=== PATIENT | male | born 1955 | race Caucasian/White ===

== ENCOUNTER 2016-06-09 10:30 | Emergency (ER) | payer MEDICARE ==
[2014-08-07 11:36] VITALS: BMI 28.9
[~2016-06-09 10:30] MED LIST: DILAUDID4 MG PO; NORCO 10/325 TA1 TA1 PO
[2016-06-09 11:01] LABS: BASOPHILS 0.3 % (0.0-2.0); EOSINOPHILS 1.3 % (0-7); HEMATOCRIT 44.8 % (42.0-54.0); IMMATURE GRANULOCYTES 0.4 % (0-5); LYMPHOCYTES 24.6 % (15-50); MCH 28.8 pg (26.0-34.0); MCHC 33.5 g/dL (31.0-37.0); MCV 86.2 fL (80.0-100.0); MEAN PLATELET VOLUME 9.1 fL (7.4-10.4); MONOCYTES 10.9 % (2-11); NEUTROPHILS 62.5 % (40-80); RDW 13.5 % (11.5-14.5); WBC 6.8 10x3/uL (4.8-10.8)
[2016-06-09 11:03] LABS: PLATELET COUNT 187 10x3/uL (130-400)
[2016-06-09 11:15] LABS: ALBUMIN 3.6 g/dL (3.4-5.0); ALKALINE PHOSPHATASE 104 U/L (46-116); ALT (SGPT) 173 U/L (10-68); BILIRUBIN - TOTAL 0.27 mg/dL (0.2-1.3); CALC OSMOLALITY 274 mosm/kg (275-300); CALCIUM 9.2 mg/dL (8.5-10.1); CARBON DIOXIDE 23.5 mmol/L (21.0-32.0); CHLORIDE - SERUM 103 mmol/L (98-107); CREATININE - SERUM 0.9 mg/dL (0.6-1.3); GLUCOSE 94 mg/dL (74-106); POTASSIUM - SERUM 4.3 mmol/L (3.5-5.1); PROTEIN - SERUM 7.7 g/dL (6.4-8.2); SODIUM 136 mmol/L (136-145); UREA NITROGEN 20 mg/dL (7-18); eGFR NON AFRICAN AMERICAN > 90 mL/min (90-120)
[2016-06-09 11:20] LABS: APPEARANCE CLEAR (CLEAR); BILIRUBIN NEGATIVE (NEGATIVE); COLOR YELLOW (YELLOW); GLUCOSE NEGATIVE (NEGATIVE); KETONE NEGATIVE (NEGATIVE); LEUKOCYTE ESTERASE NEGATIVE (NEGATIVE); NITRITE NEGATIVE (NEGATIVE); PROTEIN NEGATIVE (NEGATIVE); SPECIFIC GRAVITY 1.015 (1.005-1.020); UROBILINOGEN NORMAL (NORMAL)
== END 2016-06-09 14:15 | disposition home or self-care (01) ==
LOC: D.ER 10:30
PROVIDERS: Emergency Medicine
DX: R10.9 Unspecified abdominal pain (principal)

== ENCOUNTER 2016-06-25 13:28 | Emergency (ER) | payer MEDICARE ==
[2014-08-07 11:36] VITALS: BMI 28.9
== END 2016-06-25 15:34 | disposition left against medical advice (07) ==
LOC: D.ER 13:28
DX: M54.5 Low back pain (principal)

== ENCOUNTER 2016-07-09 18:57 | Emergency (ER) | payer MEDICARE ==
[2014-08-07 11:36] VITALS: BMI 28.9
[2016-07-09 19:55] LABS: ALBUMIN 3.6 g/dL (3.4-5.0); ANION GAP 15.6 mmol/L (8-16); BILIRUBIN - TOTAL 0.48 mg/dL (0.2-1.3); CALCIUM 8.6 mg/dL (8.5-10.1); CARBON DIOXIDE 22.1 mmol/L (21.0-32.0); CREATININE - SERUM 1.7 mg/dL (0.6-1.3); POTASSIUM - SERUM 3.7 mmol/L (3.5-5.1); PROTEIN - SERUM 7.2 g/dL (6.4-8.2)
[2016-07-09 20:07] LABS: BASOPHILS 0.3 % (0.0-2.0); EOSINOPHILS 0.9 % (0-7); HEMATOCRIT 40.7 % (42.0-54.0); HEMOGLOBIN 13.4 g/dL (13.5-17.5); IMMATURE GRANULOCYTES 0.7 % (0-5); LYMPHOCYTES 15.8 % (15-50); MCH 28.5 pg (26.0-34.0); MCHC 32.9 g/dL (31.0-37.0); MCV 86.6 fL (80.0-100.0); MEAN PLATELET VOLUME 10.8 fL (7.4-10.4); MONOCYTES 9.1 % (2-11); NEUTROPHILS 73.2 % (40-80); PLATELET COUNT 163 10x3/uL (130-400); RDW 13.6 % (11.5-14.5); WBC 7.7 10x3/uL (4.8-10.8)
== END 2016-07-09 21:01 | disposition home or self-care (01) ==
LOC: D.ER 18:57
PROVIDERS: Nurse Practitioner Acute Care
DX: R07.9 Chest pain, unspecified (principal); R60.0 Localized edema; I10 Essential (primary) hypertension; F41.9 Anxiety disorder, unspecified; F32.9 Major depressive disorder, single episode, unspecified

== ENCOUNTER → 2016-07-16 13:42 | Outpatient (CLI) | payer MEDICARE ==
[2014-08-07 11:36] VITALS: BMI 28.9
== END | disposition home or self-care (01) ==
LOC: D.MRI 13:42
DX: M54.5 Low back pain (principal)

== ENCOUNTER 2016-09-15 12:01 | Emergency (ER) | payer MEDICARE ==
[2014-08-07 11:36] VITALS: BMI 28.9
[2016-09-15 15:57] LABS: BASOPHILS 0.2 % (0-2); EOSINOPHILS 0.9 % (0-7); HEMATOCRIT 45.8 % (42.0-54.0); HEMOGLOBIN 15.3 g/dL (13.5-17.5); IMMATURE GRANULOCYTES 0.7 % (0-5); LYMPHOCYTES 20.5 % (15-50); MCH 29.8 pg (26.0-34.0); MCHC 33.4 g/dL (31.0-37.0); MCV 89.3 fL (80.0-100.0); MEAN PLATELET VOLUME 9.5 fL (7.4-10.4); MONOCYTES 7.9 % (2-11); NEUTROPHILS 69.8 % (40-80); PLATELET COUNT 183 10x3/uL (130-400); RBC 5.13 10x6/uL (4.20-6.10); RDW 12.9 % (11.5-14.5); WBC 5.8 10x3/uL (4.8-10.8)
[2016-09-15 17:13] LABS: ALBUMIN 3.5 g/dL (3.4-5.0); ANION GAP 16.4 mmol/L (8-16); BILIRUBIN - TOTAL 0.3 mg/dL (0.2-1.3); CALCIUM 9.1 mg/dL (8.5-10.1); CARBON DIOXIDE 23.1 mmol/L (21.0-32.0); CREATININE - SERUM 1.3 mg/dL (0.6-1.3); POTASSIUM - SERUM 4.5 mmol/L (3.5-5.1); PROTEIN - SERUM 7.3 g/dL (6.4-8.2)
[2016-09-15 18:26] LABS: AMYLASE - SERUM 62 U/L (25-115); LIPASE 154 U/L (73-393)
== END 2016-09-15 19:14 | disposition home or self-care (01) ==
LOC: D.ER 12:01
PROVIDERS: Physician Assistant
DX: R55 Syncope and collapse (principal); R42 Dizziness and giddiness; R51 Headache; N28.9 Disorder of kidney and ureter, unspecified; I95.1 Orthostatic hypotension; F17.200 Nicotine dependence, unspecified, uncomplicated

== ENCOUNTER 2017-01-23 10:13 | Emergency (ER) | payer MEDICARE ==
[2014-08-07 11:36] VITALS: BMI 28.9
== END 2017-01-23 12:52 | disposition home or self-care (01) ==
LOC: D.ER 10:13
DX: S50.12XA Contusion of left forearm, initial encounter (principal); S80.01XA Contusion of right knee, initial encounter; W19.XXXA Unspecified fall, initial encounter; Y93.89 Activity, other specified; Y92.019 Unspecified place in single-family (private) house as the place of occurrence of the external cause; L03.90 Cellulitis, unspecified; F17.200 Nicotine dependence, unspecified, uncomplicated

== ENCOUNTER 2017-01-26 14:04 | Inpatient (IN) | payer MEDICARE ==
[~2017-01-26] VITALS: Ht 172.7 cm; Wt 91.1 kg
[2017-01-26 14:39] VITALS: BP 132/79; Ht 172.7 cm; Wt 91.1 kg
[2017-01-26 14:40] VITALS: BP 132/79
[2017-01-26 16:21] LABS: BASOPHILS 0.2 % (0-2); EOSINOPHILS 0.8 % (0-7); HEMATOCRIT 37.7 % (42.0-54.0); HEMOGLOBIN 12.5 g/dL (13.5-17.5); IMMATURE GRANULOCYTES 0.2 % (0-5); LYMPHOCYTES 12.3 % (15-50); MCH 29.6 pg (26.0-34.0); MCHC 33.2 g/dL (31.0-37.0); MCV 89.3 fL (80.0-100.0); MEAN PLATELET VOLUME 9.6 fL (7.4-10.4); MONOCYTES 9.7 % (2-11); NEUTROPHILS 76.8 % (40-80); PLATELET COUNT 156 10x3/uL (130-400); RBC 4.22 10x6/uL (4.20-6.10); RDW 13.2 % (11.5-14.5); WBC 6.4 10x3/uL (4.8-10.8)
[2017-01-26 19:00] VITALS: BP 118/65
--- NOTE | 2017-01-26 19:50 | NUR ---
ASSISTED PATIENT TO THE RESTROOM AND BACK TO BED. BED IN LOWEST POSITION, CALL LIGHT WITHIN REACH, AND BED ALARM ON. ENCOURAGED THE PATIENT TO CALL IF HE HAS FURTHER NEEDS.
[2017-01-27] VITALS: BP 122/65
[2017-01-27 04:00] VITALS: BP 121/78
[2017-01-27 06:06] LABS: BASOPHILS 0.2 % (0-2); EOSINOPHILS 2.9 % (0-7); HEMATOCRIT 36.1 % (42.0-54.0); HEMOGLOBIN 11.9 g/dL (13.5-17.5); IMMATURE GRANULOCYTES 0.2 % (0-5); LYMPHOCYTES 19.2 % (15-50); MCH 29.3 pg (26.0-34.0); MCV 88.9 fL (80.0-100.0); MEAN PLATELET VOLUME 10.4 fL (7.4-10.4); MONOCYTES 13.1 % (2-11); NEUTROPHILS 64.4 % (40-80); RBC 4.06 10x6/uL (4.20-6.10); RDW 13.2 % (11.5-14.5); WBC 5.4 10x3/uL (4.8-10.8)
[2017-01-27 06:16] LABS: PLATELET COUNT 206 10x3/uL (130-400)
[2017-01-27 06:30] LABS: ALBUMIN 2.5 g/dL (3.4-5.0); ALKALINE PHOSPHATASE 83 U/L (46-116); ALT (SGPT) 139 U/L (10-68); BILIRUBIN - TOTAL 0.51 mg/dL (0.2-1.3); CALC OSMOLALITY 276 mosm/kg (275-300); CALCIUM 8.2 mg/dL (8.5-10.1); CARBON DIOXIDE 24.8 mmol/L (21.0-32.0); CHLORIDE - SERUM 105 mmol/L (98-107); CREATININE - SERUM 0.6 mg/dL (0.6-1.3); GLUCOSE 90 mg/dL (74-106); POTASSIUM - SERUM 3.2 mmol/L (3.5-5.1); PROTEIN - SERUM 6.3 g/dL (6.4-8.2); SODIUM 139 mmol/L (136-145); UREA NITROGEN 11 mg/dL (7-18); eGFR NON AFRICAN AMERICAN > 90 mL/min (90-120)
--- NOTE | 2017-01-27 08:10 | NUR ---
Patient Name: JAYNA JI Admission Status: Elective Accout number: [id number] Admission Date: 01-26-2017 : 1955 Admission Diagnosis: Attending: MATIAS MORALES Current LOS: 1 Anticipated DC Date: 01-29-2017 Planned Disposition: Home Primary Insurance: MEDICARE A & B Discharge Planning Comments: CM MET WITH PATIENT AND SPOUSE (JOSE) REGARDING D/C NEEDS AND PLANS. PATIENT STATED JOSE WOULD DRIVE HIM HOME AT DISCHARGE. THERE ARE 3 STEPS W/RAILS TO ENTER HOME AND NO STAIRS INSIDE. PATIENT AND DO NOT LIVE TOGETHER - SHE LIVES ACROSS THE [address] BUT WILL STAY WITH HIM IF NEEDED. PATIENT STATED HE IS INDEPENDENT WITH HIS CARE AND HAS A WALKER, WHEELCHAIR, BS COMMODE AND CANE AT HOME. PATIENTS PCP IS DR. AUGUSTIN AND USES [facility]. PATIENT IS REFUSING HOME HEALTH AT THIS TIME. CM WILL CONTINUE TO FOLLOW PATIENT WITH D/C NEEDS AND PLANS. PCP DR. AUGUSTIN [facility]- [phone] JOSE () [phone] Clinical Transplant Coordinator: Keya Hauser Is the patient Alert and Oriented? Yes 0 * How many steps to enter\exit or inside your home? 3 W/RAILS 0 * PCP DR. AUGUSTIN 0 * Pharmacy [facility] 0 * Preadmission Environment Home Alone 0 * ADLs Independent 0 * Equipment Bedside Commode Cane Walker Wheelchair 0 * List name and contact numbers for known caregivers / representatives who currently or will assist patient after discharge: JOSE (SPOUSE) [phone] 0 * Community resources currently utilized None 0 * Additional services required to return to the preadmission environment? Yes 0 * Can the patient safely return to the preadmission environment? Yes 0 * Has this patient been hospitalized within the prior 30 days at any hospital? No 0 Grand Total: 0
[2017-01-27 09:13] VITALS: BP 127/68
[2017-01-27 10:46] VITALS: BP 114/80
[2017-01-27 16:37] VITALS: BP 115/65
--- NOTE | 2017-01-27 19:40 | NUR ---
ASSISTED THE PATIENT TO AND FROM THE RESTROOM. PATIENT DENIES NEEDS AT THIS TIME. BED IN LOWEST POSITION, CALL LIGHT WITHIN REACH, AND BED ALARM ON. ENCOURAGED THE PATIENT TO CALL IF HE HAS OTHER NEEDS.
[2017-01-27 20:00] VITALS: BP 100/48
[2017-01-28] VITALS: BP 117/70
[2017-01-28 04:00] VITALS: BP 122/56
[2017-01-28 06:00] LABS: BASOPHILS 0.3 % (0-2); EOSINOPHILS 3.4 % (0-7); HEMATOCRIT 36.2 % (42.0-54.0); HEMOGLOBIN 11.7 g/dL (13.5-17.5); IMMATURE GRANULOCYTES 0.3 % (0-5); LYMPHOCYTES 22.8 % (15-50); MCH 28.8 pg (26.0-34.0); MCHC 32.3 g/dL (31.0-37.0); MCV 89.2 fL (80.0-100.0); MONOCYTES 13.1 % (2-11); NEUTROPHILS 60.1 % (40-80); PLATELET COUNT 196 10x3/uL (130-400); RBC 4.06 10x6/uL (4.20-6.10); RDW 13.4 % (11.5-14.5)
[2017-01-28 06:05] LABS: WBC 3.8 10x3/uL (4.8-10.8)
[2017-01-28 06:25] LABS: ALBUMIN 2.6 g/dL (3.4-5.0); ALKALINE PHOSPHATASE 87 U/L (46-116); ALT (SGPT) 146 U/L (10-68); BILIRUBIN - TOTAL 0.36 mg/dL (0.2-1.3); CALC OSMOLALITY 278 mosm/kg (275-300); CALCIUM 8.2 mg/dL (8.5-10.1); CARBON DIOXIDE 24.6 mmol/L (21.0-32.0); CHLORIDE - SERUM 108 mmol/L (98-107); CREATININE - SERUM 0.7 mg/dL (0.6-1.3); GLUCOSE 116 mg/dL (74-106); POTASSIUM - SERUM 3.6 mmol/L (3.5-5.1); PROTEIN - SERUM 6.3 g/dL (6.4-8.2); SODIUM 140 mmol/L (136-145); UREA NITROGEN 10 mg/dL (7-18); eGFR NON AFRICAN AMERICAN > 90 mL/min (90-120)
--- NOTE | 2017-01-28 08:00 | NUR ---
ASSESSMENT COMPLETE. IV TO L UPPER ARM. NS INFUSING AT 70 CC/HR VIA PUMP. VIOLIN TEACHER DILAUDID 0.2-10-4 IN USE FOR PAIN CONTROL. NPO FOR SURGERY. DENIES ANY NEEDS AT THIS TIME.
[2017-01-28 08:09] VITALS: BP 124/68
--- NOTE | 2017-01-28 09:00 | NUR ---
OFF FLOOR TO OR VIA BED. FAMILY TO WAITING ROOM.
--- NOTE | 2017-01-28 10:16 | NUR ---
0958: UNABLE TO REACH FAMILY, EXT [phone]
[2017-01-28 12:25] VITALS: BP 127/60
--- NOTE | 2017-01-28 12:25 | NUR ---
RECEIVED TO ROOM FROM RECOVERY ROOM VIA BED. STERI STRIPS INTACT TO ANTERIOR MIDLINE NECK INCISION. SMALL AMOUNT OF BLOODY DRAINAGE NOTED TO STERI STRIPS. O2 3L NC IN USE. VSS. FAMILY AT BEDSIDE.
--- NOTE | 2017-01-28 15:00 | NUR ---
SMALL AMOUNT OF BLOODY DRAINAGE NOTED FROM MIDDLE OF INCISION.
--- NOTE | 2017-01-28 16:00 | NUR ---
BRUISING NOTED TO R HIP AND R EYE.
--- NOTE | 2017-01-28 18:10 | NUR ---
CONTINUES TO HAVE SMALL AMOUNT OF OOZING FROM MIDDLE OF INCISION. AREA AROUND INCISION CLEANED WITH SALINE SOAKED 4X4'S. SOFT COLLAR IN USE.
[2017-01-28 20:00] VITALS: BP 123/68
[2017-01-29] VITALS: BP 132/65
[2017-01-29 04:00] VITALS: BP 149/71
--- NOTE | 2017-01-29 04:04 | NUR ---
EYES CLOSED RESPIRATIONS WITH EASE AND UNLABORED.
[2017-01-29 04:59] LABS: BASOPHILS 0 % (0-2); EOSINOPHILS 0 % (0-7); HEMATOCRIT 35.2 % (42.0-54.0); HEMOGLOBIN 11.6 g/dL (13.5-17.5); IMMATURE GRANULOCYTES 0.1 % (0-5); LYMPHOCYTES 5.5 % (15-50); MCH 29.1 pg (26.0-34.0); MCV 88.4 fL (80.0-100.0); MEAN PLATELET VOLUME 9.9 fL (7.4-10.4); MONOCYTES 6.6 % (2-11); NEUTROPHILS 87.8 % (40-80); PLATELET COUNT 208 10x3/uL (130-400); RBC 3.98 10x6/uL (4.20-6.10); RDW 13.1 % (11.5-14.5)
[2017-01-29 05:10] LABS: WBC 7.4 10x3/uL (4.8-10.8)
[2017-01-29 05:21] LABS: ALBUMIN 2.6 g/dL (3.4-5.0); ALKALINE PHOSPHATASE 89 U/L (46-116); ALT (SGPT) 132 U/L (10-68); BILIRUBIN - TOTAL 0.25 mg/dL (0.2-1.3); CALC OSMOLALITY 273 mosm/kg (275-300); CALCIUM 8.2 mg/dL (8.5-10.1); CARBON DIOXIDE 22.3 mmol/L (21.0-32.0); CHLORIDE - SERUM 104 mmol/L (98-107); CREATININE - SERUM 0.8 mg/dL (0.6-1.3); GLUCOSE 152 mg/dL (74-106); POTASSIUM - SERUM 3.8 mmol/L (3.5-5.1); PROTEIN - SERUM 6.6 g/dL (6.4-8.2); SODIUM 136 mmol/L (136-145); UREA NITROGEN 11 mg/dL (7-18); eGFR NON AFRICAN AMERICAN > 90 mL/min (90-120)
[2017-01-29 08:02] VITALS: BP 129/73
--- NOTE | 2017-01-29 08:10 | NUR ---
ASSESSMENT COMPLETE. IV TO L FA PATENT. SEISMOGRAPH OPERATOR DILAUDID 0.2-10-4 IN USE FOR PAIN CONTROL. BED ALARM IN USE. SOFT COLLAR IN USE. ANTERIOR NECK INCISION WITH STERI STRIPS INTACT. BRUISING NOTED TO R EYE AND R HIP. O2 2L NC IN USE. DENIES ANY NEEDS AT THIS TIME.
[2017-01-29 12:21] VITALS: BP 128/65
--- NOTE | 2017-01-29 12:25 | NUR ---
COMPLAINING OF NAUSEA. ZOFRAN GIVEN SLOW IVP.
--- NOTE | 2017-01-29 15:00 | NUR ---
VISITING WITH FAMILY. DENIES ANY NEEDS AT THIS TIME.
[2017-01-29 16:14] VITALS: BP 130/76
--- NOTE | 2017-01-29 16:43 | NUR ---
Rehab Note- Acute Rehab Prescreen order received. Visited with the patient and his . They are interested in [facility] acute rehab. Will plan on acute rehab stay when medically stable and ready for discharge from the acute hospital. Spoke with KRISTEN Laura. Will continue to follow at this time. Thank you for this referral! Denisa Rangel RN Clinical Liaison, [facility] Rehab
--- NOTE | 2017-01-29 17:54 | NUR ---
VISITING WITH FAMILY. DENIES ANY NEEDS AT PRESENT.
--- NOTE | 2017-01-29 18:12 | NUR ---
OIL AND GAS FIELD TECHNICIAN DC'D. JORDON GIVEN FOR COMPLAINT OF PAIN.
--- NOTE | 2017-01-29 19:15 | NUR ---
OT NOTE : PT COMPLETED BED MOB WITH CGA. PT COMPLETED ADL MOB. WITH CGA. PT COMPLETED TOILETING TASK AND HYGIENE TASKS WITH SBA/CGA. THANK YOU, RADHA CALDERON/Charlene
[2017-01-29 20:00] VITALS: BP 134/75
--- NOTE | 2017-01-29 23:36 | NUR ---
194)REC'D.IN BED INCSION RIGHT LATERAL SIDE OF NECK WITH STERI STRIPS DRY AND INTACT. NO REDNESS OR DRAINAGE NOTED.COLLAR OFF AT PRESENT PER PT. REQUEST.SCD'S INTACT. WILL CONTINUE TO MONITOR FOR ANY CHGES. IN NEUROVASCULAR STAUUS AND FOLLOW CURRENT PLAN OF CARE.
--- NOTE | 2017-01-29 23:54 | NUR ---
PATIENT IS LAYING ON HIS RIGHT SIDE, RESTING QUIETLY WITH EYES CLOSED. NO SIGNS OF DISTRESS NOTED. BED IN LOWEST POSITION, CALL LIGHT IN REACH. BED RAILS UP X'S 2.
[2017-01-30] VITALS: BP 152/83
[2017-01-30 04:00] VITALS: BP 150/80
--- NOTE | 2017-01-30 07:50 | NUR ---
PT AOX4 RESP EVEN AND NONLABORED RESP EVEN AND NONLABORED PT DENIES NEEDS AT THIS TIME SRX2 BED AT LOWEST SETTING CALL LIGHT WITHIN REACH WILL CONTINUE TO MONITOR
[2017-01-30 07:58] VITALS: BP 130/79
[2017-01-30] MEDS ORDERED: IPRAT-ALBUT 0.5-3 ML UPD (10:15)
[2017-01-30] MEDS ORDERED: ACETAMINOPHEN325 MG PO (10:15)
[2017-01-30] MEDS ORDERED: ROBAXIN-750750 MG PO (10:15)
[2017-01-30] MEDS ORDERED: Morphine Sulfate IV (10:16)
[2017-01-30] MEDS ORDERED: NALOXONE HC0.4 MG/M2 IV (10:16)
[2017-01-30] MEDS ORDERED: HYDROCODON-ACE1 EAC7 PO (10:16)
[2017-01-30] MEDS ORDERED: PROTONIX I40 MG/VIAL IV (10:16)
[2017-01-30] MEDS ORDERED: DEXAMETHASONE4 MG/ML IV (10:16)
--- NOTE | 2017-01-30 11:14 | NUR ---
CM REASSESSMENT NOTE: PATIENT IS DISCHARGING TO IP REHAB TODAY. FAMILY AWARE OF DISCHARGE
[2017-01-30 16:11] LABS: BASOPHILS 0.1 % (0-2); EOSINOPHILS 0.4 % (0-7); HEMATOCRIT 35.5 % (42.0-54.0); HEMOGLOBIN 11.5 g/dL (13.5-17.5); IMMATURE GRANULOCYTES 0.4 % (0-5); LYMPHOCYTES 19.8 % (15-50); MCHC 32.4 g/dL (31.0-37.0); MCV 89.4 fL (80.0-100.0); MEAN PLATELET VOLUME 9.2 fL (7.4-10.4); NEUTROPHILS 68.3 % (40-80); PLATELET COUNT 204 10x3/uL (130-400); RBC 3.97 10x6/uL (4.20-6.10); RDW 13.4 % (11.5-14.5); WBC 6.7 10x3/uL (4.8-10.8)
[2017-01-30] MEDS ORDERED: DECADRON4 MG PO (16:30)
[2017-01-30 16:32] LABS: ALBUMIN 2.8 g/dL (3.4-5.0); ALKALINE PHOSPHATASE 106 U/L (46-116); ALT (SGPT) 126 U/L (10-68); BILIRUBIN - TOTAL 0.24 mg/dL (0.2-1.3); CALC OSMOLALITY 278 mosm/kg (275-300); CALCIUM 8.3 mg/dL (8.5-10.1); CARBON DIOXIDE 25.2 mmol/L (21.0-32.0); CHLORIDE - SERUM 105 mmol/L (98-107); CREATININE - SERUM 0.8 mg/dL (0.6-1.3); GLUCOSE 115 mg/dL (74-106); POTASSIUM - SERUM 3.6 mmol/L (3.5-5.1); PROTEIN - SERUM 6.2 g/dL (6.4-8.2); SODIUM 138 mmol/L (136-145); eGFR NON AFRICAN AMERICAN > 90 mL/min (90-120)
[2017-01-30 16:33] LABS: UREA NITROGEN 17 mg/dL (7-18)
== END 2017-01-30 17:51 | DRG 30 ==
LOC: D.MS 14:04
PROVIDERS: Neurological Surgery; ADMIT Family Medicine Adult Medicine
PROC: 0RB30ZZ Excision of Cervical Vertebral Disc, Open Approach (ICD-10-PCS; 2017-01-28)
PROC: 0RG10Z0 (ICD-10-PCS; principal; 2017-01-28 09:30)
DX: S14.107A Unspecified injury at C7 level of cervical spinal cord, initial encounter (principal); M48.06 Spinal stenosis, lumbar region; X58.XXXA Exposure to other specified factors, initial encounter; R00.0 Tachycardia, unspecified

== ENCOUNTER 2017-01-30 14:02 | Inpatient (IN) | payer MEDICARE ==
[~2017-01-30] VITALS: Ht 172.7 cm; Wt 86.2 kg
[~2017-01-30 14:02] MED LIST changes: +ACETAMINOPHEN325 MG PO; +DEXAMETHASONE4 MG/ML IV; +HYDROCODON-ACE1 EAC7 PO; +IPRAT-ALBUT 0.5-3 ML UPD; +Morphine Sulfate IV; +NALOXONE HC0.4 MG/M2 IV; +PROTONIX I40 MG/VIAL IV; +ROBAXIN-750750 MG PO
[2017-01-30] MEDS ORDERED: DECADRON4 MG PO (16:30)
--- NOTE | 2017-01-30 19:20 | NUR ---
PATIENT IN BED, AWAKE, WATCHING TV. DENIES NEEDS.
--- NOTE | 2017-01-30 21:40 | NUR ---
GAVE PATIENT SCHEDULED PO MEDS. ALSO GAVE HIM NORCO 5/325 X2 TABS PO FOR PAIN LEVEL OF 9/10 IN BACK AND POSTERIOR NECK.
[2017-01-30 21:43] VITALS: BP 143/69
--- NOTE | 2017-01-30 22:40 | NUR ---
REPORTS PAIN LEVEL STILL 4/10, BUT NOW HAVING SPASMS IN BILAT LEGS. GAVE HIM ROBAXIN 750MG PO AND CONTINUING ADMISSION ASSESSMENT AND HISTORY.
--- NOTE | 2017-01-30 23:20 | NUR ---
ADMISSION HISTORY AND ASSESSMENT COMPLETE. PATIENT SIGNED ADMISSION DOCUMENTS. DENIES CURRENT NEEDS.
--- NOTE | 2017-01-31 00:05 | NUR ---
RESTING QUIETLY IN BED, EYES CLOSED. EMPTIED 350ML FROM BEDSIDE URINAL.
--- NOTE | 2017-01-31 02:30 | NUR ---
REMAINS IN BED, RESTING ON LEFT SIDE. EMPTIED 250ML FROM BEDSIDE URINAL.
--- NOTE | 2017-01-31 04:40 | NUR ---
RESTING QUIETLY, EYES CLOSED. EMPTIED 650ML FROM BEDSIDE URINAL.
--- NOTE | 2017-01-31 05:40 | NUR ---
CURRENTLY WORKING WITH P/T. AT 0530 GAVE PATIENT SCHEDULED MEDS ALONG WITH NORCO 5/325 X2 TABS PO FOR PAIN LEVEL OF 6/10 IN LEGS, BACK AND NECK.
[2017-01-31 06:39] LABS: BASOPHILS 0 % (0-2); EOSINOPHILS 0 % (0-7); HEMATOCRIT 39.7 % (42.0-54.0); IMMATURE GRANULOCYTES 0.5 % (0-5); LYMPHOCYTES 9.8 % (15-50); MCH 29.1 pg (26.0-34.0); MCHC 32.7 g/dL (31.0-37.0); MCV 88.8 fL (80.0-100.0); MEAN PLATELET VOLUME 9.3 fL (7.4-10.4); MONOCYTES 5.4 % (2-11); NEUTROPHILS 84.3 % (40-80); PLATELET COUNT 238 10x3/uL (130-400); RBC 4.47 10x6/uL (4.20-6.10); RDW 13.3 % (11.5-14.5); WBC 6.5 10x3/uL (4.8-10.8)
[2017-01-31 06:53] LABS: CALC OSMOLALITY 269 mosm/kg (275-300); CALCIUM 8.4 mg/dL (8.5-10.1); CARBON DIOXIDE 24.8 mmol/L (21.0-32.0); CHLORIDE - SERUM 101 mmol/L (98-107); CREATININE - SERUM 0.7 mg/dL (0.6-1.3); GLUCOSE 111 mg/dL (74-106); SODIUM 134 mmol/L (136-145); UREA NITROGEN 15 mg/dL (7-18); eGFR NON AFRICAN AMERICAN > 90 mL/min (90-120)
[2017-01-31 06:56] LABS: POTASSIUM - SERUM 4.7 mmol/L (3.5-5.1)
[2017-01-31 08:42] VITALS: BP 148/78
--- NOTE | 2017-01-31 10:00 | NUR ---
PT REQ AND REC'D PRN ROBAXIN AND PAIN MED THIS AM. PT RESTING IN BED. WCTM.
[2017-01-31 13:52] VITALS: Ht 172.7 cm; Wt 86.2 kg
--- NOTE | 2017-01-31 15:50 | NUR ---
PT RESTING IN BED WATCHING TV, DENIES NEEDS. WCTM.
--- NOTE | 2017-01-31 19:00 | NUR ---
IN BED, AWAKE. DENIES NEEDS.
[2017-01-31 21:35] VITALS: BP 140/81
--- NOTE | 2017-01-31 21:35 | NUR ---
ASSESSMENT AND HS MEDS COMPLETE. GAVE PATIENT NORCO 5/325 X2 TABS PO FOR PAIN LEVEL OF 7/10 IN BACK, LEGS AND NECK. ALSO GAVE HIM ROBAXIN 750MG PO FOR SPASMS IN BILAT LEGS.
--- NOTE | 2017-01-31 22:35 | NUR ---
RESTING IN BED ON LEFT SIDE. EMPTIED 300ML FROM BEDSIDE URINAL.
--- NOTE | 2017-02-01 00:15 | NUR ---
RESTING IN BED, ON RIGHT SIDE. NO EVIDENT DISCOMFORT.
--- NOTE | 2017-02-01 02:05 | NUR ---
RESTING IN BED ON LEFT SIDE, EYES CLOSED. EMPTIED 300ML FROM BEDSIDE URINAL.
--- NOTE | 2017-02-01 05:50 | NUR ---
GAVE PATIENT SCHEDULED MEDS WELL NORCO 5/325 X2 TABS PO FOR PAIN LEVEL OF 6/10 IN NECK, BACK AND LEGS. ALSO GAVE HIM ROBAXIN 750MG FOR BILATERAL LEG SPASMS.
--- NOTE | 2017-02-01 07:48 | NUR ---
PT IN BED WITH EYES OPEN WATCHING TV. REQUEST COFFEE AND RECEIVED. COMPLAINS OF PAIN 10/25 AND STATES THAT HE RECENTLY RECEIVED PAIN MEDICATION. NO OTHER CONCERNS NOTED AT THIS TIME. CALL LIGHT IN REACH.
[2017-02-01 09:14] VITALS: BP 137/87
--- NOTE | 2017-02-01 11:40 | NUR ---
PT OFF UNIT WITH FAMILY AT THIS TIME USING WHEELCHAIR. NO CONCERNS NOTED PRIOR TO LEAVING UNIT. INSTRUCTED THAT HE COULD GO OFF UNIT BUT COULD NOT LEAVE FACILITY. WILL OBSERVE FOR RETURN.
--- NOTE | 2017-02-01 16:46 | NUR ---
PT IN BED WITH EYES OPEN VISITING WITH FAMILY AT BEDSIDE. NO CONCERNS NOTED AT THIS TIME. CALL LIGHT IN REACH.
--- NOTE | 2017-02-01 18:20 | NUR ---
RESTING QUIETLY IN BED. DENIES NEEDS. CALL LIGHT IN REACH
[2017-02-01 19:00] VITALS: BP 118/70
--- NOTE | 2017-02-01 19:00 | NUR ---
IN BED WITH VISITORS AT BEDSIDE. DENIES CURRENT NEEDS.
--- NOTE | 2017-02-01 19:00 | NUR ---
PT IN BED WITH HOB UP FOR COMFORT. WATCHING TV. FAMILY AT BEDSIDE. ALERT & ORIENTED. BED IN LOWEST POSITION AND CALL LIGHT WITHIN REACH.
--- NOTE | 2017-02-02 00:45 | NUR ---
PT LYING IN BED. RESTING QUIETLY. RESP. EVEN. BED IN LOWEST POSITION AND CALL LIGHT WITHIN REACH.
--- NOTE | 2017-02-02 04:45 | NUR ---
PT LYING IN BED. EYES CLOSED. CHEST RISING AND FALLING. BED IN LOWEST POSITION AND CALL LIGHT WITHIN REACH.
[2017-02-02 08:24] VITALS: BP 123/84
--- NOTE | 2017-02-02 09:18 | NUR ---
PT RESTING IN BED WITH EYES OPEN CALL LIGHT IN REACH WILL MONITER
--- NOTE | 2017-02-02 13:46 | NUR ---
PT RESTING IN BED EATING TOLRATING WELL CALL LIGHT IN REACH WILL MONITER
--- NOTE | 2017-02-02 17:23 | NUR ---
PT RESTING IN BED WITH EYES OPEN CALL LIGHT IN REACH WILL MONITER
--- NOTE | 2017-02-02 19:00 | NUR ---
IN BED, AWAKE. 2 VISTORS AT BEDSIDE.
--- NOTE | 2017-02-02 20:20 | NUR ---
ASSESSMENT AND HS MEDS COMPLETE. GAVE PATIENT MORPHINE 2MG IN LEFT DELTOID FOR PAIN LEVEL OF 6/10 IN BACK, NECK, AND BILAT LEGS. DENIES FURTHER NEEDS.
[2017-02-02 20:41] VITALS: BP 126/76
--- NOTE | 2017-02-02 22:30 | NUR ---
RESTING IN BED, EYES CLOSED.
--- NOTE | 2017-02-03 | NUR ---
RESTING IN BED ON RIGHT SIDE, EYES CLOSED. EMPTIED 300ML FROM BEDSIDE URINAL.
--- NOTE | 2017-02-03 02:15 | NUR ---
RESTING IN BED ON RIGHT SIDE. EMPTIED 325ML FROM BEDSIDE URINAL.
--- NOTE | 2017-02-03 04:00 | NUR ---
RESTING QUIETLY IN BED.
--- NOTE | 2017-02-03 05:35 | NUR ---
GAVE PATIENT SCHEDULED PO MEDS WELL OXY IR 10MG PO FOR PAIN LEVEL OF 6/10 IN BACK, LEGS AND NECK. GAVE HIM ROBAXIN 750MG PO FOR SPASMS IN LEGS.
[2017-02-03 08:05] VITALS: BP 130/80
--- NOTE | 2017-02-03 13:00 | NUR ---
PT RESTING IN BED WITH EYES OPEN CALL LIGHT IN REACH NO PROBLEMS WILL MONITER
--- NOTE | 2017-02-03 18:07 | RHP ---
PATIENT: JAYNA JI MEDICAL RECORD: [id number] ACCOUNT: [id number] LOCATION:[facility]1111 : 55 ADMISSION DATE: 01/30/17 REHABILITATION HISTORY AND PHYSICAL EXAMINATION POST ADMISSION PHYSICIAN EXAMINATION DATE OF ADMISSION: 01/30/2017 ADMITTING DIAGNOSES: Severe cervical and lumbar spinal stenosis, status post lumbar and cervical radiculopathy, status post ACDF. HISTORY OF PRESENT ILLNESS: The patient is admitted to inpatient rehabilitation with spinal dysfunction, nontraumatic, due to severe cervical and lumbar spinal stenosis, had lumbar and cervical radiculopathy, status post ACDF. He presented to Dr. Pinedo's office with epidural spinal injection with continued pain and progressively worsening. He did have several falls, decreased sensation and weakness in his extremities. He was admitted to acute hospital secondary to lumbar laminectomy due to severe lumbar spinal stenosis, but canceled surgery to undergo an ACDF of his spine secondary to spinal cord compression due to spinal cord stenosis and cervical radiculopathy. 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 He wears a soft collar brace, a small Steri-Strip in the incisions on his back. He will continue to monitor his pain level, nerve sensation. He will have IV steroids, monitor his blood sugars. He was independent with mobility and his ADLs prior to debility secondary to his lumbar stenosis. He is moderate assist for ADLs and moderate assist for mobility and continued to be high fall risk. He plans to return home to his family with prior level of functioning or better and plans to be able to return to work hopefully at some point. COMORBIDITIES: In this patient include lumbar radiculopathy, cervical radiculopathy, cervical spinal cord injury, hyperkalemia, debility, tachycardia, fatigue, pain, past smoker, self-care deficits and decreased sensation. PAST MEDICAL HISTORY: Significant for kidney stones, urinary and bowel incontinence, arthritis, chronic back pain and bolden. PAST SURGICAL HISTORY: Includes gallbladder, hernia, appendectomy, right thumb surgery, bilateral shoulders, bilateral total knee, lumbar fusion, anterior cervical fusion in the past. ALLERGIES: TORADOL AND ASPIRIN. CURRENT MEDICATIONS: He is on morphine as needed for pain. He is getting hydrocodone as needed for severe back discomfort, Protonix 40 mg daily. He is on Narcan protocol. He is on dexamethasone 4 mg q.6 hours p.r.n., Robaxin 750 mg t.i.d. p.r.n. spasms, DuoNeb updrafts as needed, Tylenol 325 q.4 hours p.r.n. HABITS: No current alcohol or tobacco use. FAMILY HISTORY: Noncontributory. SOCIAL HISTORY: The patient hopes to return back home and hopefully return to work at some point. HISTORY AND PHYSICAL [id number] JAYNA JI REVIEW OF SYSTEMS: GENERAL: Denies weakness or fatigue. HEENT: Denies cold, cough, or congestion. CARDIOVASCULAR: Denies chest pain. PHYSICAL EXAMINATION: VITAL SIGNS: Stable, afebrile. GENERAL: A well-developed gentleman in no acute distress, alert upon exam. HEENT: Normocephalic and atraumatic. Mucosa moist. NECK: Supple. Does have a cervical soft collar in place. LUNGS: Clear at this time. HEART: Regular rate and rhythm. ABDOMEN: Benign. EXTREMITIES: No clubbing, cyanosis or edema. NEUROLOGIC: Seems intact. ASSESSMENT: This is a 61-year-old gentleman admitted to rehab with a working diagnosis of spinal cord dysfunction, status post ACDF. The patient has potential to make improvement. We instituted the following multiple disciplinary therapies including, but not limited to physical, occupational, respiratory, speech, nutritional services, prosthetics and orthotics. Given his complex condition and risk for more complications, rehabilitation services cannot be provided at a lower level of care such as a fpc facility. PLAN: 1. Admit to [facility] rehab for intensive inpatient therapy to include the following disciplines: A. Physical therapy to improve gait, all transfer skills and bed mobility to a modified independent level. B. Occupational therapy to improve activities of daily living to a modified independent level. C. Case management to assist with discharge planning and placement options. D. Nutrition to assist with nutritional needs. E. Rehabilitation nursing to assist in monitoring the patient's underlying medical conditions and to assist with any type of bowel or bladder management. 2. The patient's current medications and medical care will be continued. 3. The patient will be placed on standard fall precautions. 4. The patient's estimated length of stay is approximately 7-10 days. 5. Discuss this patient during care team staff meeting this week. TRANSINT:[id number] Voice Confirmation ID: [id number] DOCUMENT ID: [id number] KARELY notes whether there has been none or any medical/functional change since admission: - KARELY attests patient continues to be appropriate for IRF: - HISTORY AND PHYSICAL [id number] JAYNA JI SCOTT MD at 1807 CC: [id number] DICTATION DATE: 02/02/17899 SENIOR DATA WAREHOUSE DEVELOPER: 02/02/17 0959 ADM IN [place] [id number] [place] [id number]
--- NOTE | 2017-02-03 19:25 | NUR ---
ASSESS PT VITAL SIGNS, RESULT SEE FLOWSHEET.
--- NOTE | 2017-02-03 19:39 | NUR ---
PT. IN BED WITH HOB UP FOR COMFORT. EYES CLOSED AND RESP. EVEN. CALL LIGHT WITHIN REACH.
[2017-02-04 01:05] VITALS: BP 134/71
--- NOTE | 2017-02-04 03:20 | NUR ---
REST IN BED, EYE CLOSE, CALL LIGHT IN REACH.
[2017-02-04 06:14] LABS: CALC OSMOLALITY 273 mosm/kg (275-300); CALCIUM 8.4 mg/dL (8.5-10.1); CHLORIDE - SERUM 101 mmol/L (98-107); CREATININE - SERUM 0.7 mg/dL (0.6-1.3); GLUCOSE 111 mg/dL (74-106); POTASSIUM - SERUM 4.6 mmol/L (3.5-5.1); SODIUM 134 mmol/L (136-145); UREA NITROGEN 26 mg/dL (7-18); eGFR NON AFRICAN AMERICAN > 90 mL/min (90-120)
[2017-02-04 06:28] LABS: BASOPHILS 0.1 % (0-2); EOSINOPHILS 0 % (0-7); HEMATOCRIT 39.3 % (42.0-54.0); HEMOGLOBIN 13.5 g/dL (13.5-17.5); IMMATURE GRANULOCYTES 5.2 % (0-5); LYMPHOCYTES 10.9 % (15-50); MCH 28.8 pg (26.0-34.0); MCHC 34.4 g/dL (31.0-37.0); MCV 83.8 fL (80.0-100.0); MEAN PLATELET VOLUME 10.9 fL (7.4-10.4); MONOCYTES 8.8 % (2-11); PLATELET COUNT 232 10x3/uL (130-400); RBC 4.69 10x6/uL (4.20-6.10); RDW 13.1 % (11.5-14.5); WBC 11.7 10x3/uL (4.8-10.8)
--- NOTE | 2017-02-04 08:00 | NUR ---
PATIENT IS ALERT/ORIENT X4. CALL LIGHT WITHIN REACH. VOICES NO NEEDS AT THIS TIME.
[2017-02-04 08:32] VITALS: BP 120/69
--- NOTE | 2017-02-04 11:30 | NUR ---
PRN PAIN MEDICATION GIVEN FOR SHOULDER AND NECK PAIN PER PATIENT REQUEST
--- NOTE | 2017-02-04 14:51 | NUR ---
PATIENT IN REHAB ROOM. WORKING WITH PHYSICAL THERAPIST. DENIES ANY PAIN/DISC AT THIS TIME.
--- NOTE | 2017-02-04 15:34 | NUR ---
PATIENT GIVEN PRN PAIN MEDICATION AFTER THERAPY PER PATIENT REQUEST.
--- NOTE | 2017-02-04 16:00 | NUR ---
DENIES NEEDS.CL IN REACH.
--- NOTE | 2017-02-04 16:18 | NUR ---
PRN ROBAXIN GIVEN PER PATIENT REQUEST
--- NOTE | 2017-02-04 17:00 | NUR ---
PATIENTS FAMILY IN ROOM VISITING. PATIENT DENIES ANY NEEDS AT THIS TIME.
--- NOTE | 2017-02-04 19:30 | NUR ---
Propelling self in wheelchair down hallway. offers no complaints. c/o pain in neck and back. alert and oriented x4. will continue to monitor
[2017-02-04 20:00] VITALS: BP 128/75
--- NOTE | 2017-02-04 22:16 | NUR ---
LYING IN BED ON RIGHT SIDE EYES CLOSED RESTING COMFORTABLY. APPROPRIATE RISE AND FALL OF CHEST. CALL LIGHT WITHIN REACH. WILL CONTINUE TO MONITOR
--- NOTE | 2017-02-05 00:24 | NUR ---
EMPTY URINAL 500ML.
--- NOTE | 2017-02-05 03:43 | NUR ---
RESTING IN BED WITH EYES CLOSED. NO S/S OF DISTRESSS OBSERVED. CALL LIGHT AND OVERBED TABLE IN REACH.
--- NOTE | 2017-02-05 04:29 | NUR ---
REST IN BED, CALL LIGHT IN REACH.
--- NOTE | 2017-02-05 07:24 | NUR ---
SITTING UP IN BED WATCHING MORNING NEWS. ALERT AND ORIENTED X4. DENIES ANY NEEDS. CALL LIGHT WITHIN REACH. WILL CONTINUE TO MONITOR
[2017-02-05 08:26] VITALS: BP 136/79
--- NOTE | 2017-02-05 10:45 | NUR ---
IN THERAPY GYM WITH OCCUPATIONAL THERAPY. DENIES NEEDS. NO S/SX OF DISTRESS. WILL CONTINUE TO MONITOR
--- NOTE | 2017-02-05 12:36 | NUR ---
SITTING UP IN WHEELCHAIR EATING LUNCH. OFFERS NO COMPLAINTS. CALL LIGHT WITHIN REACH. WILL CONTINUE TO MONITOR
--- NOTE | 2017-02-05 14:44 | NUR ---
RD f/u note Chart reviewed and pt visitied. Pt reports good appetite, no complaints. Diet: regular, PO 100%. nita 20. noted to have scabs and sores on neck and L elbow. reddend area to gluteal area. no new wt. no changes at this time. RD to follow
--- NOTE | 2017-02-05 15:33 | NUR ---
IN THERAPY GYM WITH PHYSICAL THERAPY. NO S/SX OF DISTRESS. WILL CONTINUE TO MONITOR
--- NOTE | 2017-02-05 21:49 | NUR ---
REST IN BED AND WATCH TV.
[2017-02-05 23:25] VITALS: BP 149/97
--- NOTE | 2017-02-06 03:28 | NUR ---
RESTING IN BED WITH EYES CLOSED. NO S/S OF DISTRESS OBSERVED. DURAGESIC PATCH TO RIGHT SHOULDER.
--- NOTE | 2017-02-06 03:46 | NUR ---
REST QUIETLY IN BED, EYE CLOSE,CALL LIGHT IN REACH.
[2017-02-06 08:07] VITALS: BP 141/76
--- NOTE | 2017-02-06 08:08 | NUR ---
EATING BREAKFAST. DENIES NEEDS. CALL LIGHT IN REACH
--- NOTE | 2017-02-06 10:20 | NUR ---
PRN PAIN MEDICATION GIVEN FOR NECK AND SHOULDER PAIN. GIVEN PER PATIENT REQUEST
--- NOTE | 2017-02-06 12:15 | NUR ---
PATIENT USING CALL LIGHT FOR NEEDS. ASST TO BATHROOM WITH STANDBY ASSST AND WHEELED WALKER.
--- NOTE | 2017-02-06 19:10 | NUR ---
PROPELLING SELF IN WHEELCHAIR DOWN HALLWAY.
--- NOTE | 2017-02-06 19:30 | NUR ---
REST IN BED AND WATCH TV.
--- NOTE | 2017-02-06 20:04 | NUR ---
PT. IN BED WITH HOB UP FOR COMFORT AND IS WATCHING TV. NO VOICED NEEDS AT THIS TIME AND HE HAS HIS CALL LIGHT WITHIN REACH.
[2017-02-07 00:49] VITALS: BP 128/65
--- NOTE | 2017-02-07 04:41 | NUR ---
REST QUIETLY IN BED, EYE CLOSE, CALL LIGHT IN REACH.
--- NOTE | 2017-02-07 07:30 | NUR ---
SITTING UP IN BED WATCHING MORNING NEWS. DENIES ANY NEEDS AND MINIMAL PAIN. CALL LIGHT WITHIN REACH. BED LOW. WILL CONTINUE TO MONITOR
[2017-02-07 08:00] VITALS: BP 141/78
--- NOTE | 2017-02-07 08:00 | NUR ---
UP OOB TO WC.EATING BREAKFAST.CL IN REACH.
--- NOTE | 2017-02-07 15:26 | NUR ---
SITTING UP IN WHEELCHAIR WATCHING TV. OFFERS NO COMPLAINTS. CALL LIGHT WITHIN REACH. WILL CONTINUE TO MONITOR
--- NOTE | 2017-02-07 18:03 | NUR ---
LYING IN BED WATCHING TV. NO S/SX OF DISTRESS. DENIES ANY NEEDS. CALL LIGHT WITHIN REACH. WILL CONTINUE TO MONITOR
--- NOTE | 2017-02-07 19:40 | NUR ---
RESTING IN BED WITH EYES OPEN AND VISITORS AT BEDSIDE. VERY TALKATIVE AND PLEASANT. HOB ELEVATED. DENIES ANY OAIN AT THIS TIME. CALL LIGHT IN REACH.
--- NOTE | 2017-02-07 21:05 | NUR ---
RESTING IN BED WITH EYES CLOSED. HOB ELEVATED. EASILY AROUSES WITH VERBAL STIMULI. PLEASANT AND COOPERATIVE. CALL LIGHT AND OVERBED TABLE IN REACH.
[2017-02-08 00:02] VITALS: BP 144/71
--- NOTE | 2017-02-08 00:45 | NUR ---
RESTING IN BED WITH EYES CLOSED ON LEFT SIDE. NO S/S OF DISTRESS OBSERVED AT THIS TIME. CALL LIGHT AND OVERBED TABLE IN REACH.
--- NOTE | 2017-02-08 06:50 | NUR ---
RESTING IN BED WITH EYES CLOSED. NO S/S OF DISTRESS OBSERVED. CALL LIGHT AND OVERBED TABLE IN REACH.
--- NOTE | 2017-02-08 07:43 | NUR ---
SITTING UP IN BED C/O PAIN IN NECK AND LOWER BACK 9/10 DEEP THROBBING PAIN. ADMINISTERED METHOCARBAMOL 750MG AND 325 TYLENOL UNTIL PHARMACY CAN RESTOCK PYXSIS WITH OXY IR. CALL LIGHT WITHIN REACH, WILL CONTINUE TO MONITOR
[2017-02-08 08:00] VITALS: BP 160/74
--- NOTE | 2017-02-08 11:13 | NUR ---
SITTING UP IN WHEELCHAIR WATCHING TV. DENIES ANY NEEDS. CALL LIGHT WITHIN REACH. WILL CONTINUE TO MONITOR
--- NOTE | 2017-02-08 15:19 | NUR ---
SITTING UP IN WHEELCHAIR VISITING WITH . DENIES ANY NEEDS. NO S/SX OF DISTRESS. CALL LIGHT WITHIN REACH. BED LOW AND ALARM ON . WILL CONTINUE TO MONITOR
--- NOTE | 2017-02-08 16:00 | NUR ---
TAKING A SHOWER UNDER SUPERVISION OF NURSE.
--- NOTE | 2017-02-08 16:30 | NUR ---
ASSISTED WITH SHOWER SETUP, PT WAS ABLE TO WASH ALL EXTREMITIES AND BACK USING LONG HANDLE SPONGE. DRESSED WITHOUT ASSISTANCE AND PERFORMED ORAL HYGIENE. CLEAN LINENS WERE PUT ON BED. OFFERS NO COMPLAINTS. CALL LIGHT WITHIN REACH. WILL CONTIUE TO MONITOR
[2017-02-08 19:30] VITALS: BP 141/72
--- NOTE | 2017-02-08 19:53 | NUR ---
RECIEVED UP IN BED WITH EYES OPEN AND TV ON. PLEASANT AND COOPERATIVE. DENIES ANY PAIN AT THIS TIME. CALL LIGHT AND OVERBED TABLE IN REACH.
--- NOTE | 2017-02-08 21:34 | NUR ---
RESTING IN BED WITH EYES OPEN AND TV ON. C/O PAIN IN NECK AND BACK EARLIER AND REQUESTED PAIN MEDICATION. MEDS GIVEN PER ORDERS. CALL LIGHT AND OVERBED TABLE IN REACH.
--- NOTE | 2017-02-09 02:43 | NUR ---
RESTING IN BED WITH EYES CLOSED. REQUESTED PAIN MEDICATION AND MEDS GIVEN PER ORDERS. URINAL, CALL LIGHT AND OVERBED TABLE IN REACH.
--- NOTE | 2017-02-09 08:20 | NUR ---
PT REQ AND REC'D PRN PAIN MEDICATION AND ROBAXIN. WCTM.
--- NOTE | 2017-02-09 12:01 | NUR ---
PT REQ AND REC'D PRN PAIN MEDICATION. WCTM.
--- NOTE | 2017-02-09 16:15 | NUR ---
PT REQ AND REC'D PRN PAIN MEDICATION. WCTM.
--- NOTE | 2017-02-09 18:38 | NUR ---
PT OUT WITH FAMILY AT THIS TIME.
--- NOTE | 2017-02-09 19:30 | NUR ---
UP IN W/C GOING TO THERAPY TO FIND SOME ICE CREAM. PLEASANT AND TALKATIVE. NO C/O VOICED.
[2017-02-09 20:10] VITALS: BP 138/63
--- NOTE | 2017-02-09 21:13 | NUR ---
LAYING IN BED WITH EYES OPEN AND TV ON. VERY TALKATIVE NO C/O VOICED CALL LIGHT IN REACH.
--- NOTE | 2017-02-10 00:28 | NUR ---
GAE PATIENT OXY IR15MG PO FOR PAIN LEVEL OF 7/10 IN NECK AND BACK. PATIENT HAS BROKEN OUT IN HIVES WITH RED RASH OVER CHEST AT AXILLAE, ANTECUBITAL SPACES.
--- NOTE | 2017-02-10 00:44 | NUR ---
OBTAINED ORDER FOR BENADRYL 25MG PO Q4H PRN ALLERGIC REACTION. GAVE PATIENT 1ST DOSE PO.
--- NOTE | 2017-02-10 03:13 | NUR ---
PT STILL COVERED IN HIVES. C/O ITCHING. CHEST AND BACK AREA SEEM TO BE THE WORST.SAID HE GOT HIS LAUNDY DONE BY SOMEONE THAT USES A DIFFERENT KIND OF LAUNDRY DETERGENT. HE HAS ALREADY REMOVED HIS SHIRT. 25MG BENEDRYL GIVEN AND INEFFECTIVE. ASKED IF HE WOULD LIKE TO TAKE SHOWER AND PUT ON SRUBS. SHOWERING AT THIS TIME. WILL CONTINUE TO ASSESS.
--- NOTE | 2017-02-10 03:23 | NUR ---
ELEVATOR MECHANIC NOTIFIED.
--- NOTE | 2017-02-10 06:26 | NUR ---
RESTING IN BED WOTH EYES CLOSED. NO S/S OF DISTRESS OBSERVED. CALL LIGHT AND OVERBED TABLE IN REACH.
[2017-02-10 07:55] VITALS: BP 154/89
--- NOTE | 2017-02-10 08:01 | NUR ---
PT RESTING IN BED WITH EYES OPEN CALL LIGHT IN REACH WILL MONITER
--- NOTE | 2017-02-10 08:16 | NUR ---
EATING BREAKFAST. CALL LIGHT IN REACH
--- NOTE | 2017-02-10 16:57 | NUR ---
PT RESTING IN BED WITH EYES OPEN CALL LIGHT IN REACH NO PROBLEMS WILL MONITER
--- NOTE | 2017-02-10 19:30 | NUR ---
PM ROUNDS MADE, PT LAYING IN BED TALKING ON CELL PHONE, WILL COME BACK TO DO ASSESSMENT
[2017-02-10 20:20] VITALS: BP 144/76
--- NOTE | 2017-02-10 20:20 | NUR ---
ASSESSMENT PER FLOW SHEET, VS OBTAINED, PT C/O BACK AND LEFT ELBOW PAIN, PT REQUESTS PAIN MED AT 9PM, INFORMED PT THAT I WILL ADM IT WHEN DUE, PT VERBALIZES UNDERSTANDING, DENIES NEEDS AT THIS TIME
--- NOTE | 2017-02-10 21:50 | NUR ---
PT SITITNG UP IN WC, ADM PAIN MED, ATERAX, AND 2200 MED PER MD ORDERS, SEE EMAR, PT DENIES FURTHER NEEDS AT THIS TIME
--- NOTE | 2017-02-10 22:30 | NUR ---
PT RESTING WITH EYES CLOSED, RESP QUIET, NO DISTRESS NOTED, LEFT UNDISTURBED AT THIS TIME
--- NOTE | 2017-02-11 00:20 | NUR ---
PT RESTING WITH EYES CLOSED, RESP QUIET, NO DISTRESS NOTED, LEFT UNDISTURBED AT THIS TIME
--- NOTE | 2017-02-11 01:52 | NUR ---
PT RECREATION CENTER DIRECTOR LIGHT, C/O BACK PAIN, ADM PAIN MED PO PER MD ORDERS, SEE EMAR, WITH FRESH H20, DENIES FURTHER NEEDS AT THIS TIME
--- NOTE | 2017-02-11 02:21 | NUR ---
PT RESTING WITH EYES CLOSED, RESP QUIET, NO DISTRESS NOTED, LEFT UNDISTURBED AT THIS TIME
--- NOTE | 2017-02-11 04:04 | NUR ---
PT AWAKE, ADM 0400 MED PER MD ORDERS, SEE EMAR, PT DENIES NEEDS OR PAIN AT THIS TIME
--- NOTE | 2017-02-11 05:17 | NUR ---
PT AWAKE, SITTING ON SIDE OF BED EATING ORANGE MICHAELLE, ADM 0600 MED PO PER MD ORDERS, PT DENIES NEEDS AT THIS TIME
[2017-02-11 06:52] LABS: HEMATOCRIT 38.4 % (42.0-54.0); HEMOGLOBIN 12.8 g/dL (13.5-17.5); MCH 28.6 pg (26.0-34.0); MCHC 33.3 g/dL (31.0-37.0); MCV 85.9 fL (80.0-100.0); MEAN PLATELET VOLUME 10.6 fL (7.4-10.4); PLATELET COUNT 183 10x3/uL (130-400); RBC 4.47 10x6/uL (4.20-6.10); RDW 13.7 % (11.5-14.5); WBC 23.8 10x3/uL (4.8-10.8)
[2017-02-11 06:54] LABS: CALC OSMOLALITY 275 mosm/kg (275-300); CARBON DIOXIDE 23.2 mmol/L (21.0-32.0); CHLORIDE - SERUM 98 mmol/L (98-107); CREATININE - SERUM 0.8 mg/dL (0.6-1.3); POTASSIUM - SERUM 3.9 mmol/L (3.5-5.1); SODIUM 134 mmol/L (136-145); UREA NITROGEN 24 mg/dL (7-18); eGFR NON AFRICAN AMERICAN > 90 mL/min (90-120)
--- NOTE | 2017-02-11 06:54 | NUR ---
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
[2017-02-11 06:56] LABS: GLUCOSE 167 mg/dL (74-106)
--- NOTE | 2017-02-11 06:57 | NUR ---
SHIFT REPORT TO DAY SHIFT
[2017-02-11 07:56] LABS: HYPOCHROMASIA OCC; LYMPHOCYTES 11 % (15-50); MONOCYTES 9 % (2-11); NEUTROPHILS 75 % (40-80); PLATELET ESTIMATE NORMAL; ROULEAUX 1+
--- NOTE | 2017-02-11 08:00 | NUR ---
PLANS FOR DISCHARGE TODAY.BREAKFAST GIVEN.CL IN REACG.
[2017-02-11 08:11] VITALS: BP 145/87
[2017-02-11] MEDS ORDERED: ATARAX 25 MG TA25 MG PO (08:17)
[2017-02-11] MEDS ORDERED: PROTONIX40 MG PO (08:18)
[2017-02-11] MEDS ORDERED: DURAGESIC1 PATCH .7 TRANSDERM (08:18)
[2017-02-11] MEDS ORDERED: OXYCODONE HCL5 MG PO (08:18)
--- NOTE | 2017-02-11 09:00 | NUR ---
PT HAS SCAB/SORE ON LEFT ELBOW THAT IS SWOLLEN AROUND IT RED AND WARM TO TOUCH WILL LET KNOW
--- NOTE | 2017-02-11 09:35 | NUR ---
PATIENT DISCHARGING HOME TODAY.[facility] WILL PROVIDE THERAPY AT HOME. A WRITTEN SCRIPT GIVEN FOR A ROLLING WALKER. DR. AUGUSTIN 02/19/17 @ 2:30, DR. DEL ANGEL 02/23/17 @ 10:30. PATIENT CHOICE FORM FOR HOME HEALTH AND [facility] FORM SIGNED, EXPLAINED AND FILED IN CHART. ORDERS HAVE BEEN FAXED WITH CONFORMATION RECIEVED
--- NOTE | 2017-02-11 10:00 | NUR ---
DR PINEDO ACESSED PTS ELBOW AND ORDERED PO ABT FOR PT SCRIPT WRITTEN FOR PT TO GET FILLED UPON DISCHARGE TODAY
--- NOTE | 2017-02-11 12:45 | NUR ---
PT DISCHARGED TO HOME VIA WHEELCHAIR WITH PT DICHARGE INSTRUCTIONS AND DISCHARGE MEDS REVIEWED WITH PT PT LEFT WITH WRITTEN SCRIPT FOR [facility] IR AND FENTANYL PATCH AND ABT ALL OTHER SCRIPTS CALLED TO [facility]
== END 2017-02-11 13:20 | disposition home health service (06) | DRG 552 ==
LOC: D.REHAB 14:02
PROVIDERS: ADMIT Emergency Medicine
DX: M48.02 Spinal stenosis, cervical region (principal); M48.06 Spinal stenosis, lumbar region; M54.16 Radiculopathy, lumbar region; M54.12 Radiculopathy, cervical region; E87.5 Hyperkalemia; R53.81 Other malaise; R00.0 Tachycardia, unspecified; R53.83 Other fatigue; Z87.891 Personal history of nicotine dependence; T14.8 Other injury of unspecified body region

== ENCOUNTER 2017-02-13 15:44 | Inpatient (IN) | payer MEDICARE ==
[~2017-02-13 15:44] MED LIST changes: +ATARAX 25 MG TA25 MG PO; +DECADRON4 MG PO; +DURAGESIC1 PATCH .7 TRANSDERM; +OXYCODONE HCL5 MG PO; +PROTONIX40 MG PO
--- NOTE | 2017-02-13 16:00 | NUR ---
RECEIVED PT TO ROOM 2127, VIA WHEELCHAIR, ACCOMPANIED BY , ORIENTED PT TO ROOM AND CALL LIGHT. LT ARM RED, SWOLLEN, WARM TO TOUCH, WEEPING, CLEAR FLUID. WILL ASSESS PT AND START PLAN OF CARE.
[2017-02-13 16:24] VITALS: BP 143/81
[2017-02-13 16:58] VITALS: BP 143/81; BMI 28.9
[2017-02-13 17:14] LABS: BASOPHILS 0.1 % (0-2); EOSINOPHILS 1.9 % (0-7); HEMATOCRIT 38.8 % (42.0-54.0); HEMOGLOBIN 12.9 g/dL (13.5-17.5); IMMATURE GRANULOCYTES 1.1 % (0-5); LYMPHOCYTES 7.5 % (15-50); MCHC 33.2 g/dL (31.0-37.0); MCV 87.2 fL (80.0-100.0); MEAN PLATELET VOLUME 9.4 fL (7.4-10.4); MONOCYTES 5.5 % (2-11); NEUTROPHILS 83.9 % (40-80); PLATELET COUNT 181 10x3/uL (130-400); RBC 4.45 10x6/uL (4.20-6.10); RDW 13.9 % (11.5-14.5); WBC 19.7 10x3/uL (4.8-10.8)
[2017-02-13 17:30] LABS: ALBUMIN 2.3 g/dL (3.4-5.0); ALKALINE PHOSPHATASE 137 U/L (46-116); ALT (SGPT) 673 U/L (10-68); BILIRUBIN - TOTAL 1.32 mg/dL (0.2-1.3); CALC OSMOLALITY 258 mosm/kg (275-300); CARBON DIOXIDE 28.1 mmol/L (21.0-32.0); CHLORIDE - SERUM 95 mmol/L (98-107); CREATININE - SERUM 0.7 mg/dL (0.6-1.3); POTASSIUM - SERUM 4.6 mmol/L (3.5-5.1); PROTEIN - SERUM 5.4 g/dL (6.4-8.2); SODIUM 128 mmol/L (136-145); UREA NITROGEN 20 mg/dL (7-18); eGFR NON AFRICAN AMERICAN > 90 mL/min (90-120)
[2017-02-13 17:37] LABS: GLUCOSE 86 mg/dL (74-106)
--- NOTE | 2017-02-13 18:21 | NUR ---
RECEIVED CALL FROM DR. CULP, HE STATED TO TRY TO SEE IF IV CAN BE STARTED ON PT'S FOOT IF NOT CALL HIM FOR CVL. WILL PUT ORDER IN FOR FOOT IV ACCESS AND TRY TO START IV. IF UNABLE WILL PASS ON TO [facility] CASHIER NURSE TO SEE IF SHE CAN START IV. SPOKE WITH FANNIE DICKINSON ORDERS FOR 5MG OF NORCO Q6PRN, AND ZOFRAN Q6PRN. WILL PUT ORDERS IN.
[2017-02-13 18:36] LABS: ERYTHROCYTE SEDIMENTATION RATE 24 mm/hr (0-20)
--- NOTE | 2017-02-13 18:55 | NUR ---
ADMINISTERED 5MG OF NORCO FOR PAIN LEVEL OF 10/10. PT DENIES ANY NEEDS AT THIS TIME. CALL LIGHT IN REACH, NAD NOTED, WILL CONTINUE TO MONITOR.
--- NOTE | 2017-02-13 19:27 | NUR ---
PIV SITED TO INNER RIGHT FOREARM BY Carolin HAM RN. 22 GAUGE, FIRST ATTEMPT. PT TOLERATED WELL.
--- NOTE | 2017-02-13 19:37 | NUR ---
PAGE OU TO DR CULP TO NOTIFY HIM THAT WE WERE ABLE TO OBTAIN PIV ACCESS.
--- NOTE | 2017-02-13 19:56 | NUR ---
SPOKE WITH DR CULP, NOTIFIED HIM THAT IV ACCESS WAS OBTAINED.
[2017-02-13 20:00] VITALS: BP 130/78
[2017-02-14] VITALS: BP 123/71
--- NOTE | 2017-02-14 02:54 | NUR ---
NORCO 1 TAB GIVEN FOR C/O PAIN TO LEFT ARM, RATES PAIN AT AN 8 ON PAIN SCALE.
--- NOTE | 2017-02-14 03:55 | NUR ---
DILAUDID 1 MG GIVEN FOR C/O PAIN TO LEFT ARM. LEFT ARM ELEVATED ON PILLOW. WILL CONT TO MONITOR.
[2017-02-14 04:00] VITALS: BP 119/69
[2017-02-14 05:16] LABS: BASOPHILS 0.1 % (0-2); EOSINOPHILS 2.1 % (0-7); HEMATOCRIT 37.6 % (42.0-54.0); HEMOGLOBIN 12.2 g/dL (13.5-17.5); IMMATURE GRANULOCYTES 0.7 % (0-5); LYMPHOCYTES 7.1 % (15-50); MCH 28.4 pg (26.0-34.0); MCHC 32.4 g/dL (31.0-37.0); MCV 87.6 fL (80.0-100.0); MEAN PLATELET VOLUME 9.4 fL (7.4-10.4); MONOCYTES 5.7 % (2-11); NEUTROPHILS 84.3 % (40-80); PLATELET COUNT 171 10x3/uL (130-400); RBC 4.29 10x6/uL (4.20-6.10); WBC 16.5 10x3/uL (4.8-10.8)
[2017-02-14 05:37] LABS: ALBUMIN 2.1 g/dL (3.4-5.0); ALKALINE PHOSPHATASE 131 U/L (46-116); ALT (SGPT) 628 U/L (10-68); CALC OSMOLALITY 267 mosm/kg (275-300); CALCIUM 8.3 mg/dL (8.5-10.1); CARBON DIOXIDE 28.4 mmol/L (21.0-32.0); CHLORIDE - SERUM 99 mmol/L (98-107); CREATININE - SERUM 0.6 mg/dL (0.6-1.3); GLUCOSE 114 mg/dL (74-106); POTASSIUM - SERUM 4.1 mmol/L (3.5-5.1); PROTEIN - SERUM 5.6 g/dL (6.4-8.2); SODIUM 132 mmol/L (136-145); UREA NITROGEN 18 mg/dL (7-18); eGFR NON AFRICAN AMERICAN > 90 mL/min (90-120)
--- NOTE | 2017-02-14 07:49 | NUR ---
1MG OF DILAUDID GIVEN FOR PAIN LEVEL OF 8/10. PT IN BED A/O X4, RESP EVEN AND UNLABORED. RT FA IV INFUSING IVPB VANCOMYCIN AT 100CC/HR. BED LOW AND BEDSIDE RAILS X2, CALL LIGHT IN REACH, NAD NOTED, WILL CONTINUE TO MONITOR.
[2017-02-14 08:45] VITALS: BP 126/75
--- NOTE | 2017-02-14 09:32 | NUR ---
PT PLACED ON CONTACT ISOLATION FOR POSSIBLE MRSA IN THE WOUND. PROVIDED TEACHING TO PT REGARDING ISOLATION PROTOCOL. PT VERBALIZED UNDERSTANDING. PT DENIES ANY NEEDS AT THIS TIME. CALL LIGHT IN REACH, NAD NOTED, WILL CONTINUE TO MONITOR.
--- NOTE | 2017-02-14 12:09 | NUR ---
1MG OF DILAUDID FOR PAIN LEVEL OF 9/10. PT DENIES ANY NEEDS AT THIS TIME. VITAL SIGNS DONE AT THIS TIME. NAD NOTED, AT BEDSIDE, CALL LIGHT IN REACH, WILL CONTINUE TO MONITOR.
[2017-02-14 12:40] VITALS: BP 132/72
--- NOTE | 2017-02-14 14:45 | NUR ---
ADMINISTERED 5MG OF NORCO FOR PAIN LEVEL OF 10/10. PT DENIES ANY OTHER NEEDS AT THIS TIME. CALL LIGHT IN REACH, NAD NOTED, WILL CONTINUE TO MONITOR.
--- NOTE | 2017-02-14 16:02 | NUR ---
PT NOT NPO, US WILL BE DONE IN AM. NURSE NOTIFIED GCATES RDMS
[2017-02-14 16:24] VITALS: BP 128/70
--- NOTE | 2017-02-14 17:17 | NUR ---
ADMINISTERED 500MG OF TYLENOL FOR TEMP OF 100.6, IVPB VANCOMYCIN HUNG AT THIS TIME. PT UP TO SIDE OF BED, EATING DINNER, STATED PAIN LEVEL NOW 6/10. PT DENIES ANY OTHER NEEDS AT THIS TIME. CALL LIGHT IN REACH,NAD NOTED, WILL CONTINUE TO MONITOR.
--- NOTE | 2017-02-14 18:12 | NUR ---
RECHECKED PT'S TEMP NOW 98.5 AFTER 500MG OF TYLENOL GIVEN. PT IN BED, DENIES ANY NEEDS AT THIS TIME. CALL LIGHT IN REACH, NAD NOTED, WILL CONTINUE TO MONITOR.
[2017-02-14 20:00] VITALS: BP 123/66
--- NOTE | 2017-02-14 22:18 | NUR ---
INITIAL ROUNDS COMPELTED AT 1915 HRS. PT STATED PAIN BEGINNING TO COME BACK. ASSESSMENT COMPLETED AT 2005 HRS. VSS. IV TO RFA WITH NS AT TKO. L ARM WITH 3-4+ EDEMA AND RED. BLISTERS NOTED TO UPPER L FA. PALPABLE L RADIAL PULSE. L FINGERNAILS PALE WITH BRISK CAP REFILL. LUNGS DIMINISHED IN BASES BILAT. DILUDID 1MG IVP GIVEN AROUNDS 2039 HRS FOR C/O SEVERE L ARM PAIN. NORCO 5/325 PO JUST GIVEN FOR C/O L ARM PAIN 11/24. WILL CONTINUE TO MONITOR. SR U P X2, CALL LIGHT WITHIN REACH.
--- NOTE | 2017-02-15 00:59 | NUR ---
DILAUSIS 1MG SIVP GIVEN FOR C/O SEVERE L ARM PAIN. WILL CONTINUE TO MONITOR.
--- NOTE | 2017-02-15 01:59 | NUR ---
BEDBATH DONE. BED LINENS CAHNGED. PT TOLERATED ACTIVITY WELL. WILL CONTINUE TO MONITOR.
[2017-02-15 02:08] VITALS: BP 130/71
[2017-02-15 04:00] VITALS: BP 127/75
--- NOTE | 2017-02-15 05:02 | NUR ---
DILAUDID 1MG SIVP GIVEN FOR C/P L ARM PAIN 02/24. WILL CONTINUE TO MONITOR.
--- NOTE | 2017-02-15 05:54 | NUR ---
VSS THROUGHOUT NIGHT. PALPABLE L RADIAL PULSE. L ARM CONTINUES TO HAVE 3+ EDEMA AND BRIGHT RED IN COLOR. BRISK CAP REFILL TO L HAND FINGERNAILS. PT STATES DILAUDID IV CONTROLS PAIN. NEEDS MET; WILL CONTINUE TO MONITOR.
[2017-02-15 06:47] LABS: BASOPHILS 0.1 % (0-2); EOSINOPHILS 2.6 % (0-7); HEMATOCRIT 37.8 % (42.0-54.0); HEMOGLOBIN 12.3 g/dL (13.5-17.5); LYMPHOCYTES 5.8 % (15-50); MCH 28.5 pg (26.0-34.0); MCHC 32.5 g/dL (31.0-37.0); MCV 87.7 fL (80.0-100.0); MEAN PLATELET VOLUME 9.6 fL (7.4-10.4); MONOCYTES 8.5 % (2-11); PLATELET COUNT 160 10x3/uL (130-400); RBC 4.31 10x6/uL (4.20-6.10); RDW 13.6 % (11.5-14.5); WBC 14.3 10x3/uL (4.8-10.8)
[2017-02-15 06:58] LABS: ALKALINE PHOSPHATASE 170 U/L (46-116); ALT (SGPT) 608 U/L (10-68); BILIRUBIN - TOTAL 1.15 mg/dL (0.2-1.3); CALC OSMOLALITY 267 mosm/kg (275-300); CALCIUM 7.9 mg/dL (8.5-10.1); CARBON DIOXIDE 27.5 mmol/L (21.0-32.0); CHLORIDE - SERUM 99 mmol/L (98-107); CREATININE - SERUM 0.5 mg/dL (0.6-1.3); GLUCOSE 84 mg/dL (74-106); PROTEIN - SERUM 5.1 g/dL (6.4-8.2); SODIUM 135 mmol/L (136-145); UREA NITROGEN 11 mg/dL (7-18); eGFR NON AFRICAN AMERICAN > 90 mL/min (90-120)
--- NOTE | 2017-02-15 07:39 | NUR ---
RECIEVED REPORT ON PATIENT, PATIENT IS RESTING AT THIS TIME, NAD NOTED. AROUSES TO VOICE. PATIENT BED IS LOW AND LOCKED CALL LIGHT IN REACH. PATIENT DENIES ANY NEEDS AT THIS TIME. R FA IV WITH NS INFUSING AT KVO. CPOC
[2017-02-15 08:00] VITALS: BP 121/71
--- NOTE | 2017-02-15 09:30 | NUR ---
NORCO GIVEN FOR PAIN IN ARM, WILL CONT TO MONITOR PAIN. DENIES ANY NEEDS. CPOC
[2017-02-15 11:00] VITALS: BP 143/84
--- NOTE | 2017-02-15 11:51 | NUR ---
PATIENT SITTING UP IN BED EATING LUNCH, DENIES ANY NEEDS. CPOC
--- NOTE | 2017-02-15 14:21 | NUR ---
PATIENT RESTING, NAD NOTED. DILUADID GIVEN FOR PAIN 10/10 IN ARM. DENIES ANY FURTHER NEEDS. CPOC
--- NOTE | 2017-02-15 15:44 | NUR ---
SPOKE WITH DR AUGUSTIN REGARDING PATIENT PAIN LEVEL NOT GETTING BELOW A 8 WITH THE DILUADID AND NORCO. HE ORDERED TO INCREASE THE DILUADID TO 2MG Q 4HPRN PAIN. WILL CHANGE. CPOC
--- NOTE | 2017-02-15 17:36 | NUR ---
CALLED TO PATIENT ROOM, PATIENT WAS UPSIDE DOWN IN BED, WITH BLOOD ON BED AND FLOOR, PATIENT PULLED R FA IV OUT, IV CATH TIP INTACT. WILL GET CHARGE NURSE TO RESTART IV. CPOC
--- NOTE | 2017-02-15 17:50 | NUR ---
IV STARTED TO R CHEST BY PAUL CAMACHO RN 20 G.
--- NOTE | 2017-02-15 18:00 | NUR ---
DILUADID 2 MG GIVEN IV FOR PAIN 02/24. CPOC
--- NOTE | 2017-02-15 23:28 | NUR ---
INITIAL ROUNDS COMPETED AT 1915 HRS. PT WATCHING TV. NAD. ASSESSMENT COMPETED AT 2015 HRS. ASSISTED TO BR. SMALL BM NOTED. ASSISTED BACK TO BED. IV TO R CHEST WITH NS AT TKO. IV PATENT. ALERT AND ORIENTED TO PERSON, PLACE AND TIME. L ARM WITH 3-4+ EDEMA. AND BRIGHT RED IN COLOR. PALPABLE L RADIAL PULSE. L FINGERNAILS WITH BRISK CAP REFILL. LUNGS DIMINISHED IN BASES BILAT. DILAUDID 2MG SIVP GINVE FOR C/O L ARM PAIN AT 2200 HRS. BEDBATH AND BED LINEN CHANGE COMPLETD BY 2300 HRS. PT CURRENTLY WATCHING TV. WILL CONTINUE TO MONITOR. SR UP X2, CALL LIGHT WITHIN REACH.
[2017-02-16] VITALS: BP 131/76
--- NOTE | 2017-02-16 00:49 | NUR ---
PT RESTING WITH EYES CLOSED. RESP EVEN AND REGULAR. SR UP X2, CALL LIGHT WITHIN REACH.
--- NOTE | 2017-02-16 02:45 | NUR ---
PT RESTING WITH EYES CLOSED. RESP EVEN AND REGULAR. SR UP X2, CALL LIGHT WITHIN REACH.
[2017-02-16 04:00] VITALS: BP 122/73
--- NOTE | 2017-02-16 04:50 | NUR ---
PT RESTIONG WITH EYES CLOSED. RESP EVEN AND REGULAR. SR UP X2, CALL LIGHT WITHIN REACH.
[2017-02-16 05:42] LABS: BASOPHILS 0.7 % (0-2); EOSINOPHILS 2.9 % (0-7); HEMATOCRIT 36.2 % (42.0-54.0); HEMOGLOBIN 11.7 g/dL (13.5-17.5); IMMATURE GRANULOCYTES 1.6 % (0-5); LYMPHOCYTES 12.8 % (15-50); MCH 28.5 pg (26.0-34.0); MCHC 32.3 g/dL (31.0-37.0); MCV 88.1 fL (80.0-100.0); MEAN PLATELET VOLUME 9.5 fL (7.4-10.4); MONOCYTES 7.3 % (2-11); NEUTROPHILS 74.7 % (40-80); PLATELET COUNT 191 10x3/uL (130-400); RBC 4.11 10x6/uL (4.20-6.10); RDW 13.8 % (11.5-14.5); WBC 15.3 10x3/uL (4.8-10.8)
[2017-02-16 06:07] LABS: ALBUMIN 1.9 g/dL (3.4-5.0); ALKALINE PHOSPHATASE 182 U/L (46-116); ALT (SGPT) 522 U/L (10-68); CALC OSMOLALITY 267 mosm/kg (275-300); CALCIUM 8.1 mg/dL (8.5-10.1); CARBON DIOXIDE 27.9 mmol/L (21.0-32.0); CHLORIDE - SERUM 101 mmol/L (98-107); GLUCOSE 82 mg/dL (74-106); POTASSIUM - SERUM 3.6 mmol/L (3.5-5.1); PROTEIN - SERUM 5.6 g/dL (6.4-8.2); SODIUM 135 mmol/L (136-145); UREA NITROGEN 11 mg/dL (7-18)
[2017-02-16 06:08] LABS: CREATININE - SERUM 0.7 mg/dL (0.6-1.3); eGFR NON AFRICAN AMERICAN > 90 mL/min (90-120)
--- NOTE | 2017-02-16 07:23 | NUR ---
AM ROUNDS- PT IN UP TO SIDE OF BED, DENIES ANY NEEDS AT THIS TIME. RESP EVEN AND REGULAR. RT CHEST IV INFUSING IVPB VANCOMYCIN AT THIS TIME. BED LOW AND WHEELS LOCKED, BEDSIDE RAILS X2, CALL LIGHT IN REACH, NAD NOTED, WILL CONTINUE TO MONITOR.
[2017-02-16 08:00] VITALS: BP 118/67
--- NOTE | 2017-02-16 09:41 | NUR ---
2MG OF DILAUDID GIVEN FOR PAIN LEVEL OF 9/10. PT TRANSFERED TO MRI VIA WHEELCHAIR, NAD NOTED.
--- NOTE | 2017-02-16 11:22 | NUR ---
PT TRANSFERED BACK TO ROOM 2127, VIA WHEELCHAIR, NAD NOTED. DR. OLIVA INFOMRED THIS NURSE THAT PT CAN COME OFF ISOLATION AT THIS TIME.
[2017-02-16 12:00] VITALS: BP 113/74
[2017-02-16 16:02] VITALS: BP 131/41
--- NOTE | 2017-02-16 17:50 | NUR ---
ADMINISTERED 2MG OF DILAUDID FOR PAIN LEVEL OF 10/10. PT DENIES ANY OTHER NEEDS A THIS TIME. WENT TO SUBMIT AND THE COMPUTER FROZE ON ME. WAS NOT ABLE TO SUBMIT AND COMPUTER LOGGED ME OUT. WILL GO BACK AND DOCUMENT.
[2017-02-16 19:00] VITALS: BP 126/68
--- NOTE | 2017-02-16 19:17 | NUR ---
ROUNDING DONE. PT IS ASLEEP AND RESTLESS IN BED. IS SITTING AT THE BEDSIDE. PT IS GOING TO THE OR FOR I&D AT 2000 TONIGHT. WILL COMPLETE NECESSARY PAPERWORK AND PREOP PT FOR THE OR. PT CONTINUES TO REFUSE SCDS. CURRENTLY ON RA. RIGHT CHEST W/ NS @ KVO. IV ABX RUNNING. WILL CONTINUE TO MONITOR.
--- NOTE | 2017-02-16 21:11 | NUR ---
WENT TO HANG 2100 DOSE OF ANCEF, BUT THE LAST DOSE OF ANCEF WAS HANGING FROM DAY SHIFT THAT HAD NOT BEEN INFUSED. THE BAG OF IV ABX HAD NOT BEEN POPPED SO IT HAD NOT BEEN INFUSED. THE BAG OF ANCEF THAT I PULLED WILL BE RETURNED TO THE [facility]. WE ARE NOW BACK ON SCHEDULE. PT CONTINUES TO BE VERY UNCOMFORTABLE. HE IS NOT DUE FOR ANY PAIN MEDS AT THIS TIME. HE IS WAITING TO GO TO THE OR. HIS LEFT ARM IS ANGRY RED, HOT TO TOUCH, AND VERY SWOLLEN. THE REDNESS COVERS HIS ENTIRE ARM AND IS SPREADING TO HIS CHEST AND DOWN HIS LEFT SIDE WELL. THE PT IS MOANING AND RESTLESS DUE TO THE PAIN. HIS REMAINS AT THE BEDSIDE. ATTEMPTED TO CALL TO THE OR, BUT HAVE BEEN UNABLE TO REACH ANYONE TO GET AN ANSWER ABOUT WHEN PT WILL BE GOING TO THE OR.
--- NOTE | 2017-02-16 22:10 | NUR ---
PT'S SURGERY HAS BEEN DELAYED DUE TO AN EMERGENCY SURGERY. PT IS WRITHING IN PAIN. HIS PAIN MED ORDER, DILAUDID, HAS BEEN D/C'D. CALL TO FANNIE DICKINSON THROUGH [employer] [phone] NUMBER. RECEIVED CALL BACK FROM FANNIE AND TELEPHONE ORDER FOR DILAUDID TAKEN. PT WITH WORSENING SWELLING AND REDNESS OF LEFT ARM, LEFT CHEST, AND LEFT SIDE. RADIAL PULSE FAINT, BUT STILL PALPABLE. DILAUDID GIVEN PER ORDER. WILL CONT TO MONITOR.
[2017-02-17] VITALS: BP 137/84
--- NOTE | 2017-02-17 01:00 | NUR ---
THE REDNESS ON PT'S ARM IS SPREADING FURTHER ON CHEST AND DOWN PT'S SIDE. HE HAS INCREASED SWELLING THROUGH HIS LEFT ARM. THE SKIN ON HIS LEFT HAND AND WRIST IS PARTICULARLY TIGHT. THE PATIENT IS WRITHING IN PAIN DESPITE RECEIVING PAIN MEDICATION. RADIAL PULSE PALPABLE. RECEIVED NOTIFICATION THAT PT'S SURGERY HAD BEEN CANCELLED AND THE OR TEAM WENT HOME. DUE TO WORSENING OF PATIENT'S CONDITION, I CALLED DR. MOON TO NOTIFY HIM OF PATIENT'S DETERIORATING CONDITION. DR. MOON STATED THAT HE WOULD BE COMING BACK TO THE HOSPITAL TO PERFORM THE SURGERY. HE ASKED ME TO CALL THE RN OBSERVATION TO CALL THE OR TEAM BACK TO THE HOSPITAL. I CALLED AND SPOKE TO HARJIT TO CONTACT OR TEAM. DR. MOON ARRIVED TO HOSPITAL BY 0015 AM. PT WAS TAKEN TO THE OR AT 0045 FOR URGENT/EMERGENT SURGERY FOR SEVERE CELLULITIS WITH ABSCESS AND COMPARTMENT SYNDROME. WAITING IN PATIENT'S ROOM.
--- NOTE | 2017-02-17 03:00 | NUR ---
PT RETURNED FROM THE OR AT 0230. PT UNDERWENT I&D, LEFT OLECRANON BURSECTOMY, AND FASCIOTOMY WITH WOUND VAC PLACEMENT. PT REPORTS FEELING MUCH BETTER NOW. PAIN IS DOWN TO 6/10 CURRENTLY. STILL REQUESTING PAIN MEDS, WILL GIVE PER MD ORDER.
[2017-02-17 04:00] VITALS: BP 122/74
--- NOTE | 2017-02-17 04:28 | NUR ---
PT W/ INCREASED HR 116-141. HR IS REGULAR. PT IS ASYMPTOMATIC. HE DOES STATE THAT HE FEEL HIS HEART RACING A BIT, BUT IT IS NOT BOTHERSOME TO HIM. HE DENIES ANY CP, SOB, DYSPNEA, DIZZINESS, LIGHTHEADEDNESS, OR DIAPHORESIS. PT APPEARS CONFUSED WELL. HE IS TALKING ABOUT HAVING 6 DAUGHTERS AND THEN HE SAYS NO I MEAN 6 SONS... BUT HIS STATES THAT HE DOES NOT HAVE 6 SONS OR 6 DAUGHTERS. TEMP, BP, RR, AND OXYGEN SAT IS STABLE. WILL CONT TO MONITOR.
--- NOTE | 2017-02-17 05:28 | NUR ---
PT IS SLEEPING IN ROOM WITH AT BEDSIDE. HE IS ALERT AND AWAKE. SLIGHTLY CONFUSED STILL. HE IS PALE AND VERY DIAPHORETIC. HIS HR REMAINS TACHY BETWEEN 110-120. PT REMAINS AFEBRILE, BP STABLE. MORNING LABS BEING DRAWN RIGHT NOW. WILL CONTINUE TO MONITOR.
--- NOTE | 2017-02-17 05:36 | NUR ---
SAV WAS UNABLE TO DRAW PATIENT'S AM LABS. ANOTHER FLOOR RN IS ATTEMPTING TO DRAW LABS NOW. WILL MONITOR.
[2017-02-17 06:23] LABS: BASOPHILS 0.3 % (0-2); EOSINOPHILS 0.2 % (0-7); HEMATOCRIT 28.1 % (42.0-54.0); HEMOGLOBIN 9.2 g/dL (13.5-17.5); IMMATURE GRANULOCYTES 2.8 % (0-5); LYMPHOCYTES 7.6 % (15-50); MCH 28.4 pg (26.0-34.0); MCHC 32.7 g/dL (31.0-37.0); MCV 86.7 fL (80.0-100.0); MEAN PLATELET VOLUME 9.3 fL (7.4-10.4); MONOCYTES 1.8 % (2-11); NEUTROPHILS 87.3 % (40-80); PLATELET COUNT 224 10x3/uL (130-400); RBC 3.24 10x6/uL (4.20-6.10); RDW 13.8 % (11.5-14.5); WBC 20.6 10x3/uL (4.8-10.8)
[2017-02-17 06:26] LABS: ALBUMIN 1.6 g/dL (3.4-5.0); ALKALINE PHOSPHATASE 169 U/L (46-116); CALCIUM 7.5 mg/dL (8.5-10.1); CARBON DIOXIDE 24.6 mmol/L (21.0-32.0); CHLORIDE - SERUM 104 mmol/L (98-107); CREATININE - SERUM 0.7 mg/dL (0.6-1.3); POTASSIUM - SERUM 3.8 mmol/L (3.5-5.1); PROTEIN - SERUM 5.5 g/dL (6.4-8.2); SODIUM 135 mmol/L (136-145); UREA NITROGEN 12 mg/dL (7-18); eGFR NON AFRICAN AMERICAN > 90 mL/min (90-120)
--- NOTE | 2017-02-17 06:26 | NUR ---
0545 PT ACUTELY DIAPHORETIC AND PALE. HE WAS SO SWEATY THAT HE SOAKED HIS ENTIRE BED. THE INSURANCE BILLER WAS NOT ABLE TO GET BLOOD B/C HIS SKIN WAS SO SLICK. PT'S OXYGEN SAT 88% ON RA (WAS 94-96%). HR CONTINUES TO BE TACHY 110-120'S. PT'S COLOR IS ASHY UP. PT DENIES CP, SOB, DIZZINESS, BUT DOES REPORT BEING VERY TIRED. DECISION MADE TO CALL RAPID FOR SECOND OPINION ON PT'S STATUS. ABG'S OK. BLOOD SUGAR 166. BP STARTED TO DROP 93/63, BUT REMAINING STABLE IN THE 90'S. HR STILL TACHY, BUT NO FEVER. APPLIED TELE. OXYGEN 2LNC APPLIED. H&H STABLE. [facility] ICU CHARGE NURSE CALLED REPORT TO DR. MOON. NO NEW ORDERS GIVEN. PT'S BP IS NOW STARTING TO RECOVER TO THE LOW 100'S, BUT STILL TACHY. PT IS HUNGRY AND REQUESTING SANDWICH TRAY, WHICH WAS GIVEN. WILL CONT TO MONITOR.
[2017-02-17 06:27] LABS: ALT (SGPT) 376 U/L (10-68); CALC OSMOLALITY 272 mosm/kg (275-300); GLUCOSE 158 mg/dL (74-106)
--- NOTE | 2017-02-17 07:04 | OP ---
PATIENT NAME: JAYNA JI MEDICAL RECORD: [id number] :55 LOCATION:D. D.[id number] ADMISSION DATE:02/13/17 SURGEON: DURAN MOON DO DATE OF OPERATION: 02/17/2017 PROCEDURE PERFORMED: Left forearm and elbow incision and debridement with wound VAC application. PREOPERATIVE DIAGNOSES: Left arm infection. POSTOPERATIVE DIAGNOSIS: Left arm infection. INDICATIONS: Mr. Ji is a 61-year-old male, who presented to the hospital with left arm cellulitis. This started at the elbow and it got worse over the last week. He has been admitted, on IV antibiotics. At first, got a little better and then yesterday, February 16 appeared to be getting worse. He was put on the OR schedule. Due to scheduling conflicts, it was not able to be done during the day and OR team was called in today to do the case. He got to the point where he was having compartment syndrome symptoms and increasing pain in the erythema with extending proximally up to his shoulder and onto his chest. SURGEON: Duran Moon DO DESCRIPTION OF PROCEDURE: The patient was taken to the operative suite, placed in supine position, given general anesthetic and intubated. Once this was done, he was moved over to the OR table and placed in the right lateral decubitus position with the left arm up. A timeout was performed. The patient was prepped and draped in the left arm. Incision then commenced on the posterior elbow and wrapped around to the dorsal forearm. Once this was done, a significant amount of purulence was encountered at the elbow, which was drained and cultures were taken at that time. Tissue was removed as well throughout the whole incision and then the incision was extended down to the dorsum of the hand due to the swelling and serous fluid was expressed from the dorsum of the hand at the wrist and at the forearm. Attention then drawn to the volar side of the forearm where it was swollen as well and an incision was made radially over the forearm, the length of the forearm on the volar side, again serous fluid was encountered and expressed that area down to the forearm fascia. Same was done on the dorsal side. The infection did not go through to the fascia as seen on the MRI. Once this was completed, a debridement was completed as well in the elbow with a curette and the wound was thoroughly cleaned and the wound VAC sponge was placed in the wound on the dorsal side, first on the volar side and wound VAC was applied and was holding suction. The arm was then wrapped in Kerlix. The patient was moved over to his bed once the dressings were taken down and he was extubated. He was taken to PACU in stable condition. ESTIMATED BLOOD LOSS: 200 mL. TRANSINT:[id number] Voice Confirmation ID: [id number] DOCUMENT ID: [id number] OPERATIVE REPORT [id number] JAYNA JI MICHAEL D, DO at 0704 CC: [id number] DICTATION DATE: 02/17/17225 CAKE WRINGER: 02/17/17 030 ADM IN [facility] [address] [place] [address]
--- NOTE | 2017-02-17 07:33 | NUR ---
RECEIVED PT IN BED AAOX4 RESP UNLABORED COLOR VERY PALE SKIN COOL AND CLAMMY DRSG TO LT ARM C/D/I MONORTING FREQUENT V/S DUE TO LOW B/P B/P 100/58 AT THIS TIME WILL CONTINUE TO MONITOR
[2017-02-17 09:05] VITALS: BP 121/64
[2017-02-17 12:16] VITALS: BP 107/61
[2017-02-17 12:17] LABS: HEPATITIS C ANTIBODY >11.0 (0.0-0.9)
[2017-02-17 15:25] VITALS: BP 122/64
[2017-02-17 19:00] VITALS: BP 125/63
--- NOTE | 2017-02-17 19:05 | NUR ---
ROUNDING NOTE: AT START OF SHIFT PT IS AWAKE AND A&O X3. PT'S COLOR IS MUCH IMRPOVED FROM LAST NIGHT. BP IS STABLE NOW. PT IS NOW ON RA WITH OXYGEN SAT OF 98%. HR STILL TACHY 100-120. ON TELE, REMAINS IN NSR. PT STATES THAT HE FEELS MUCH BETTER THAN YESTERDAY. STILL WITH PAIN, CURRENTLY 6, RECEIVING DILAUDID PER ORDER LONG VSS, WILL MEDICATE PRN. CONTINUES ON IV ABX, ANCEF, PER MD ORDER. LAST BAG OF IV ABX FROM DAY SHIFT HANGING BUT NOT INFUSED DUE TO 3RD SEAL BEING POPPED. PT STILL HAS RIGHT CHEST PERIPHERAL IV, NS KVO. PER MD, NO PICC LINE FOR NOW. MIDLINE POSSIBLY IF HE LOSES HIS CURRENT IV ACCESS. HE HAS BEEN REMOVED OFF ISOLATION SINCE LAST NIGHT. CONTINUES WITH WOUND VAC TO LEFT ARM I&D BURSECTOMY SITE, DRAINING WELL, NO ISSUES. PT DENIES ANY NEEDS AT THIS TIME. REQUESTED ICE CREAM, GIVEN TO PATIENT PER REQUEST. WILL CONT TO MONITOR.
--- NOTE | 2017-02-17 22:30 | NUR ---
2047- ATTEMPTED TO MEDICATE PT W/ IV DILAUDID PER MD ORDER; HOWEVER, WHEN I WENT IN TO ADMINISTER THE MED, I DISCOVERED THE PT'S PERIPHERAL RIGHT CHEST IV SITE WAS OUT. 2MG OF DILAUDID WASTED WITH VALENCIA NOVA. SPOKE TO DYNAMO REPAIRER. THERE IS NO ONE THAT CAN DO A MIDLINE AT NIGHT, SO SHE SAID THAT MY BEST BET WAS TO TRY TO GET A PERIPHERAL WITH BACK UP PLAN TO CALL MD FOR PO MED ORDERS UNTIL A MIDLINE COULD BE PLACED IN THE AM. I CALLED ICU PLATE DRYING MACHINE TENDER FOR ASSITANCE D/T DIFFICULT IV STICK. DOMINICK RN CAME AND TRIED, BUT WAS UNABLE TO GET IV STARTED. ANA M RN CAME OVER FROM THE ICU AND WAS SUCCESSFUL WITH RIGHT HAND PERIPHERAL IV SITE. IV DILAUDID SUBSEQUENTLY GIVEN PER ORDER. PT'S PAIN WAS "GREATER THAN 10" BUT IMPROVED TO 6 AFTER ADMINISTRATION OF DILAUDID. WILL CONT TO MONITOR.
[2017-02-18] VITALS: BP 114/61
[2017-02-18 04:00] VITALS: BP 135/78
[2017-02-18 05:15] LABS: BASOPHILS 0.2 % (0-2); EOSINOPHILS 0.4 % (0-7); HEMATOCRIT 25.2 % (42.0-54.0); HEMOGLOBIN 8.1 g/dL (13.5-17.5); IMMATURE GRANULOCYTES 2.9 % (0-5); LYMPHOCYTES 13.7 % (15-50); MCH 27.9 pg (26.0-34.0); MCHC 32.1 g/dL (31.0-37.0); MCV 86.9 fL (80.0-100.0); MONOCYTES 5.5 % (2-11); NEUTROPHILS 77.3 % (40-80); PLATELET COUNT 193 10x3/uL (130-400); RDW 13.8 % (11.5-14.5)
[2017-02-18 05:26] LABS: WBC 12.5 10x3/uL (4.8-10.8)
[2017-02-18 05:40] LABS: ALBUMIN 1.5 g/dL (3.4-5.0); ALKALINE PHOSPHATASE 163 U/L (46-116); BILIRUBIN - TOTAL 0.17 mg/dL (0.2-1.3); CALCIUM 7.8 mg/dL (8.5-10.1); CARBON DIOXIDE 26.8 mmol/L (21.0-32.0); CHLORIDE - SERUM 103 mmol/L (98-107); CREATININE - SERUM 0.6 mg/dL (0.6-1.3); POTASSIUM - SERUM 3.9 mmol/L (3.5-5.1); PROTEIN - SERUM 5.6 g/dL (6.4-8.2); SODIUM 136 mmol/L (136-145); UREA NITROGEN 14 mg/dL (7-18); eGFR NON AFRICAN AMERICAN > 90 mL/min (90-120)
[2017-02-18 05:45] LABS: ALT (SGPT) 277 U/L (10-68); CALC OSMOLALITY 272 mosm/kg (275-300); GLUCOSE 105 mg/dL (74-106)
[2017-02-18 08:11] VITALS: BP 125/74
--- NOTE | 2017-02-18 08:13 | NUR ---
ASSESSMENT DONE. DENIES NEEDS.
--- NOTE | 2017-02-18 08:37 | NUR ---
IV PATENT. W/V INTACT. CALL LIGHT IN REACH. WILL CONT. PLAN OF CARE.
[2017-02-18 12:10] VITALS: BP 149/62
[2017-02-18 15:26] VITALS: BP 114/71
[2017-02-18 20:00] VITALS: BP 113/71
--- NOTE | 2017-02-18 20:24 | NUR ---
PT LYING IN BED, HOB FLAT, AWAKE, ALERT. CONTINUE TO MONITOR CLOSELY.
[2017-02-19 04:00] VITALS: BP 132/72
[2017-02-19 05:24] VITALS: BP 134/74
--- NOTE | 2017-02-19 05:58 | NUR ---
PT DID RECEIVE HIBICLENS BED BATH FROM MALDONADO BURGESS, ALONG WITH LINEN AND GOWN CHANGE. PT IS RESTING COMFORTABLY, EASILY ROUSABLE TO VERBAL STIMULI, DENIES ANY NEEDS. CONTINUE TO MONITOR CLOSELY.
[2017-02-19 06:23] LABS: BASOPHILS 0.2 % (0-2); EOSINOPHILS 1.7 % (0-7); HEMATOCRIT 25.6 % (42.0-54.0); HEMOGLOBIN 8.3 g/dL (13.5-17.5); IMMATURE GRANULOCYTES 3.7 % (0-5); MCH 28.4 pg (26.0-34.0); MCHC 32.4 g/dL (31.0-37.0); MCV 87.7 fL (80.0-100.0); MEAN PLATELET VOLUME 8.8 fL (7.4-10.4); MONOCYTES 5.6 % (2-11); NEUTROPHILS 71.8 % (40-80); PLATELET COUNT 182 10x3/uL (130-400); RBC 2.92 10x6/uL (4.20-6.10); RDW 13.9 % (11.5-14.5)
[2017-02-19 06:24] LABS: WBC 8.1 10x3/uL (4.8-10.8)
[2017-02-19 06:40] LABS: CALC OSMOLALITY 267 mosm/kg (275-300); CALCIUM 7.9 mg/dL (8.5-10.1); CARBON DIOXIDE 28.4 mmol/L (21.0-32.0); CHLORIDE - SERUM 102 mmol/L (98-107); CREATININE - SERUM 0.6 mg/dL (0.6-1.3); GLUCOSE 81 mg/dL (74-106); POTASSIUM - SERUM 3.8 mmol/L (3.5-5.1); SODIUM 134 mmol/L (136-145); UREA NITROGEN 16 mg/dL (7-18); eGFR NON AFRICAN AMERICAN > 90 mL/min (90-120)
--- NOTE | 2017-02-19 07:34 | NUR ---
ASSESSMENT DONE. DENIES NEEDS.
[2017-02-19 07:42] VITALS: BP 124/67
--- NOTE | 2017-02-19 07:43 | NUR ---
IV PATENT. W/V INTACT TO LEFT ARM. NO NEEDS VOICED. WILL CONT. PLAN OF CARE.
[2017-02-19 13:30] VITALS: BMI 29.5
[2017-02-19 15:37] VITALS: BP 129/69
--- NOTE | 2017-02-19 17:57 | NUR ---
WITHOUT CHANGES OR DISTRESS NOTED AT THIS TIME. DENIES NEEDS.
--- NOTE | 2017-02-19 20:34 | NUR ---
PT LYING IN BED, AWAKE, ALERT, SLURRING WORDS WHEN SPEAKING, WANTING LEE CRACKERS AND MILK. LT ARM REMAINS WITH DRESSING COVERED AND WOUND VAC IN PLACE. PT VERBALLY ACKNOWLEDGES THAT THE UNDERSTANDS HE IS NPO AGAIN AFTER MIDNIGHT FOR SURGERY TOMORROW. PT DENIES ANY OTHER NEEDS. WILL CONTINUE TO MONITOR CLOSELY. BED LOW, CALL LIGHT IN REACH, SIDE RAILS X 2, HOB 30 DEGREES.
[2017-02-20 01:50] VITALS: BP 132/79
--- NOTE | 2017-02-20 02:19 | NUR ---
PT CALLED C/O GREAT PAIN IN HIS LEFT ARM, AND ALSO STATES HE IS HAVING PAIN IN HIS RIGHT AND SHOULDER. PRN PAIN MEDICATION GIVEN PER REQUEST. PT REMAINS NPO SINCE MIDNIGHT. I ASKED PT IF HE HAS DONE ANYTHING TO POSSIBLY INJURE HIS ARM/SHOULDER, OR POSSIBLY SLEPT WRONG ON IT? PT STATES HE COULD HAVE SLEPT WRONG ON IT BUT DOES NOT KNOW FOR SURE. PT IS CURRENTLY RESTING COMFORTABLY, DENIES ANY OTHER NEEDS. CONTINUE TO MONITOR CLOSELY.
--- NOTE | 2017-02-20 03:49 | NUR ---
PT IS RESTLESS, CANNOT GET COMFORTABLE IN BED. DENIES ANY NEEDS. CONTINUE TO MONITOR CLOSELY.
[2017-02-20 06:10] VITALS: BP 120/87
--- NOTE | 2017-02-20 06:36 | NUR ---
PT HAS HAD HIBICLENS BATH THIS MORNING. DENIES ANY NEEDS. CONTINUE TO MONITOR CLOSELY.
--- NOTE | 2017-02-20 07:07 | NUR ---
AM ROUNDS- PT UP TO SIDE OF BED, STATES " I DID NOT HAVE A GOOD NIGHT". PT A/O X4 STATES PAIN LEVEL OF 6/10. RESP EVEN AND UNLABORED. RT HAND IV INFUSING NS AT 30CC/HR. BED LOW AND WHEELS LOCKED, BEDSIDE RAILS X2, CALL LIGHT IN REACH, NAD NOTED, WILL CONTINUE TO MONITOR.
[2017-02-20 07:19] LABS: BASOPHILS 0.2 % (0-2); EOSINOPHILS 2.1 % (0-7); HEMATOCRIT 26.6 % (42.0-54.0); HEMOGLOBIN 8.4 g/dL (13.5-17.5); IMMATURE GRANULOCYTES 4.1 % (0-5); LYMPHOCYTES 19.3 % (15-50); MCH 27.7 pg (26.0-34.0); MCHC 31.6 g/dL (31.0-37.0); MCV 87.8 fL (80.0-100.0); MEAN PLATELET VOLUME 8.9 fL (7.4-10.4); MONOCYTES 4.4 % (2-11); NEUTROPHILS 69.9 % (40-80); PLATELET COUNT 157 10x3/uL (130-400); RBC 3.03 10x6/uL (4.20-6.10); RDW 13.7 % (11.5-14.5); WBC 6.5 10x3/uL (4.8-10.8)
[2017-02-20 07:28] LABS: CALC OSMOLALITY 263 mosm/kg (275-300); CALCIUM 7.9 mg/dL (8.5-10.1); CARBON DIOXIDE 25.7 mmol/L (21.0-32.0); CHLORIDE - SERUM 99 mmol/L (98-107); CREATININE - SERUM 0.5 mg/dL (0.6-1.3); GLUCOSE 87 mg/dL (74-106); POTASSIUM - SERUM 4.1 mmol/L (3.5-5.1); SODIUM 132 mmol/L (136-145); UREA NITROGEN 13 mg/dL (7-18); eGFR NON AFRICAN AMERICAN > 90 mL/min (90-120)
[2017-02-20 08:46] VITALS: BP 128/71
--- NOTE | 2017-02-20 10:17 | NUR ---
ADMINISTERED 2MG OF DILAUDID FOR PAIN LEVEL OF 9/10. PT DENIES ANY NEEDS AT THIS TIME. CALL LIGHT IN REACH, NAD NOTED, WILL CONTINUE TO MONITOR.
[2017-02-20 12:12] VITALS: BP 116/62
--- NOTE | 2017-02-20 14:16 | NUR ---
2MG OF DILAUDID FOR PAIN LEVEL OF 9/10. PT IN BED, DR. LEE AT BEDSIDE TO ASSESS PT. JEN WOUND CARE NURSE AT BEDSIDE TO CHANGE WOUND VAC CANNPAULA. PT DENIES ANY OTHER NEEDS AT THIS TIEM. CALL LIGHT IN REACH, FAMILY AT BEDSIDE, NAD NOTED, WILL CONTINUE TO MONITOR.
--- NOTE | 2017-02-20 15:27 | NUR ---
Patient Name: JAYNA JI Admission Status: Urgent Accout number: [id number] Admission Date: 02-13-2017 : 1955 Admission Diagnosis:CELLULITIS OF LEFT UPPER LIMB Attending: DEMETRIA, Current LOS: 7 Anticipated DC Date: Planned Disposition: Inpatient Rehab Primary Insurance: MEDICARE A & B PLANNED EXTERNAL PROVIDER: [facility] Discharge Planning Comments: * Is the patient Alert and Oriented? Yes 0 * How many steps to enter\\exit or inside your home? 3 W/RAILS 0 * PCP DR. AUGUSTIN 0 * Pharmacy [facility] 0 * Preadmission Environment Home Alone 0 * ADLs Independent 0 * Equipment Bedside Commode Cane Rolling Walker Walker Wheelchair 0 * [facility] MEDICAL EQUIPMENT PROVIDER 0 * List name and contact numbers for known caregivers / representatives who currently or will assist patient after discharge: JOSE JI, SPOUSE, 0 * Community resources currently utilized Home Health 0 * Please name any agencies selected above. [facility] 0 * Additional services required to return to the preadmission environment? Yes * Can the patient safely return to the preadmission environment? Yes 0 * Has this patient been hospitalized within the prior 30 days at any hospital? Yes 0 CM MET WITH PT IN ROOM TO DISCUSS DISCHARGE PLANNING AND NEEDS. PT REPORTS LIVING AT HOME INDEPENDENTLY AND ALONE. PT HAS ALL NEEDED MEDICAL EQUIPMENT FROM [employer] IN [facility]. PT HAS HOME WITH [facility], PT HAS NURSING AND THERAPY BUT THEY ONLY CAME OUT TO ADMIT AND SENT HIM TO THE HOSPITAL. PT REPORTS HE WAS SENT HOME FROM INPATIENT REHAB AND HIS ARM "EXPLODED." CM DISCUSSED AVAILABILITY OF HOME HEALTH, REHAB SERVICES AND MEDICAL EQUIPMENT. PT REPORTS HE WOULD LIKE TO GO BACK TO INPATIENT REHAB AT [facility] AND THE DOCTOR FEELS IT IS A GOOD IDEA BECAUSE PT HAS HAD A DECREASE IN HIS LEVEL OF FUNCTIONING. PT WOULD LIKE TO RETURN TO [facility]. REPORTS FAMILY WILL PICK HIM UP FOR DISCHARGE HOME. EUGENIO DICKINSON NOTIFIED OF PT'S DESIRE FOR INPATIENT REHAB. CM WAITING RESULT OF INPATIENT REHAB PRESCREEN. Old Coin Dealer: Mina Montanez
[2017-02-20 15:34] VITALS: BP 123/70
--- NOTE | 2017-02-20 16:17 | NUR ---
Rehab Note- Acute Rehab Prescreen order received. The patient was recently discharged after his completed acute rehab stay on 02/11/17. He does not have new a qualifying diagnosis as he currently is admitted for cellulitus of his upper extremity. Spoke with KRISTEN Montilla. Thank you for this referral! Denisa Rangel RN Clinical Liaison, [facility]
--- NOTE | 2017-02-20 16:32 | NUR ---
PRE-OP MEDS GIVEN AT THIS TIME. PT DENIES ANY NEEDS, CALL LIGHT IN REACH, AT BEDSIDE, NAD NOTED, WILL CONTINUE TO MONITOR.
--- NOTE | 2017-02-20 17:23 | NUR ---
PT TRANSFERED TO OR VIA BED, NAD NOTED.
--- NOTE | 2017-02-20 17:46 | NUR ---
Patient Name: JAYNA JI Encounter No: [id number] : 1955 Primary Insurance: MEDICARE A & B Anticipated DC Date: Planned Disposition: HOME WITH HOME HEALTH External Planned Provider: [facility] DCP follow-up note: CM RECEIVED CALL FROM ISABEL OF [facility] WHO INFORMED CM THAT PT CANNOT COME BACK TO INPATIENT REHAB PT WAS JUST DISCHARGED AFTER PROGRAM COMPLETION AND MEDICARE WILL NOT COVER IT. CM MET WITH PT AND SPOUSE IN ROOM. CM DISCUSSED AVAILABILITY OF PRISON REHAB AND LOCATIONS / PROVIDERS. CHOICE LISTING PROVIDED. PT AND SPOUSE BOTH THINK THAT PT WILL DO OK AT HOME AND PLAN FOR PT TO DISCHARGE HOME WITH SPOUSE AND RESUMPTION OF [facility]. EUGENIO DICKINSON NOTIFIED. FOR DISCHARGE, NOTIFY [facility] AT [phone], FAX DISCHARGE INFORMATION AND HOME HEALTH ORDERS TO [facility] AT [phone]. CM TO FOLLOW AND ASSIST NEEDED. Mina Montanez, CASE MANAGEMENT
--- NOTE | 2017-02-20 19:31 | NUR ---
HAD BEEN TAKEN TO OR.
[2017-02-20 20:09] LABS: AEROBE ID Final report (()); RESULT 1 Pantoea species (())
--- NOTE | 2017-02-20 20:15 | NUR ---
RECEIVED FROM RECOVERY VIA BED. AWAKE ORIENTED X 4. LEFT ARM WRAPPED IN JUAN BANDAGE ELEVATED ON PILLOW. VITAL SIGNS STABLE. PLACED TELEMETRY LEADS SHOWS 89 SR ON MONITOR. REQUESTED DINNER WARMED UP. HIS IS PRESENT IN ROOM.
[2017-02-20 21:53] VITALS: BP 134/72
--- NOTE | 2017-02-20 22:15 | NUR ---
ADMIN DILAUDID 2MG IV PER REQUEST FOR C/O LEFT ARM PAIN LEVEL 10, DESCRIBED THROBBING. EMPTIED URINAL 300 CC LT YELLOW URINE.
--- NOTE | 2017-02-21 02:15 | NUR ---
C/O LEFT ARM PAIN LEVEL 10 ON NUMBER SCALE. ADMIN DILAUDID 2MG IV. REFILLED ICE PACK. ARM ELEVATED ON PILLOWS.
--- NOTE | 2017-02-21 06:14 | NUR ---
SITTING IN CHAIR. REQUESTED COFFEE AND PAIN MEDICATION. ADMIN DILAUDID 2MG IV.
--- NOTE | 2017-02-21 07:05 | NUR ---
RECEIVED REPORT. ASSUMED CARE OF PATIENT. CALL LIGHT WITHIN REACH. PATIENT SITTING TO CHAIR AT BEDSIDE. NS INFUSING AT KVO TO RIGHT WRIST AT THIS TIME. DENIES NEEDS AT THIS TIME. PAIN RATED AT 7. NO ACUTE DISTRESS. LEFT ARM PROPPED UP ON PILLOW.
[2017-02-21 07:16] LABS: BASOPHILS 0.2 % (0-2); EOSINOPHILS 1.3 % (0-7); HEMATOCRIT 25.1 % (42.0-54.0); HEMOGLOBIN 8.1 g/dL (13.5-17.5); LYMPHOCYTES 17.2 % (15-50); MCH 28.4 pg (26.0-34.0); MCHC 32.3 g/dL (31.0-37.0); MCV 88.1 fL (80.0-100.0); MEAN PLATELET VOLUME 9.5 fL (7.4-10.4); NEUTROPHILS 74.3 % (40-80); PLATELET COUNT 159 10x3/uL (130-400); RBC 2.85 10x6/uL (4.20-6.10); RDW 13.8 % (11.5-14.5); WBC 5.6 10x3/uL (4.8-10.8)
[2017-02-21 07:31] LABS: CALC OSMOLALITY 263 mosm/kg (275-300); CALCIUM 7.9 mg/dL (8.5-10.1); CARBON DIOXIDE 25.7 mmol/L (21.0-32.0); CHLORIDE - SERUM 100 mmol/L (98-107); CREATININE - SERUM 0.6 mg/dL (0.6-1.3); GLUCOSE 93 mg/dL (74-106); POTASSIUM - SERUM 4.2 mmol/L (3.5-5.1); SODIUM 132 mmol/L (136-145); UREA NITROGEN 11 mg/dL (7-18); eGFR NON AFRICAN AMERICAN > 90 mL/min (90-120)
--- NOTE | 2017-02-21 08:10 | OP ---
PATIENT NAME: JAYNA JI MEDICAL RECORD: [id number] :55 LOCATION:D.M2 [id number] ADMISSION DATE:02/13/17 SURGEON: DURAN MOON DO DATE OF OPERATION: 02/20/2017 PROCEDURE PERFORMED: Left arm wound VAC removal with irrigation, debridement and closure. PREOPERATIVE DIAGNOSIS: Left arm infection. POSTOPERATIVE DIAGNOSIS: Left arm infection. INDICATIONS: The patient underwent left arm I&D with wound VAC application few days ago. He returned today for wound VAC removal. Labs and infection was clearing quite nicely. SURGEON: Duran Moon DO DESCRIPTION OF PROCEDURE: The patient was taken to the operative suite, laid in supine position and given general anesthetic and LMA was placed. He was not given preoperative antibiotics as he has been on antibiotics throughout this course. Once the patient reported as intubated, the left arm was identified, prepped and draped. Before this, the wound VAC was removed, prepped and draped with Betadine and then draped in a sterile fashion. A timeout was performed, everyone was in agreement that left arm was correct arm and this was the correct patient. The wounds were then thoroughly irrigated with 2 liters of normal saline and scrubbed with a scrub brush. Once this was done, a 2-0 Prolene was used to approximate the wound on the volar, dorsal and over the elbow. This was done in a modified Donati stitch. Then, in between those stitches, the 4-0 Monocryl was placed in a horizontal mattress fashion. This was done and then the arm was cleaned, and Adaptic, 4 x 4's, were placed over the arm and then ABD at the elbow, wrapped in Kerlix and Joseph wrap. The patient was awakened and taken to recovery in stable condition. TRANSINT:[id number] Voice Confirmation ID: [id number] DOCUMENT ID: [id number] DURAN MOON DO at 0810 CC: [id number] DICTATION DATE: 02/20/171942 DIDACTIC PROGRAM IN DIETETICS DIRECTOR: 02/20/172021 ADM IN [id number] [place] [address]
[2017-02-21 08:19] VITALS: BP 104/59
--- NOTE | 2017-02-21 10:14 | NUR ---
MEDICATED FOR PAIN AT THIS TIME. NO DISTRESS.
[2017-02-21 12:00] VITALS: BP 114/68
--- NOTE | 2017-02-21 14:25 | NUR ---
MEDICATED FOR PAIN AT THIS TIME. NO DISTRESS. ARMS ELEVATED ON PILLOWS TO REDUCE SWELLING AT THIS TIME.
[2017-02-21 15:58] VITALS: BP 101/62
--- NOTE | 2017-02-21 16:32 | NUR ---
LYING IN BED WITH EYES OPEN. FAMILY AND FRIENDS AT BEDSIDE. IV FLUIDS INFUSING AT KVO. DENIES NEEDS AT THIS TIME BUT DID ASK IF HE WOULD BE ABLE TO HAVE HIS PAIN MEDICATION AT 1815. NO DISTRESS. CALL LIGHT WITHIN REACH.
--- NOTE | 2017-02-21 18:06 | NUR ---
MEDICATED FOR PAIN AT THIS TIME. NO DISTRESS. ARM ELEVATED ON PILLOWS. CALL LIGHT WITHIN REACH.
--- NOTE | 2017-02-21 19:45 | NUR ---
PT RESTING IN BED. AT BEDSIDE. ALERT/ORIENTED. SR PER TELEMETRY. IV TO RIGHT WRIST WITH NS @ KVO. LEFT ARM WITH DRESSING/JUAN WRAP IN PLACE AND ELEVATED ON PILLOW. NONLABORED RESPIRATIONS ON ROOM AIR. REVIEW PAIN MEDS AND TIMES DUE. CALL LIGHT IN REACH. SEE SHIFT ASSESSMENT.
[2017-02-21 20:00] VITALS: BP 113/62
--- NOTE | 2017-02-21 22:00 | NUR ---
ADMINISTERED DILAUDID 2MG SIVP FOR LEFT ARM PAIN. WILL MONITOR. HAS LEFT FOR THE NIGHT. CALL LIGHT IN REACH.
[2017-02-22] VITALS: BP 123/66
--- NOTE | 2017-02-22 02:10 | NUR ---
MEDICATED WITH DILAUDID 2MG SIVP FOR PAIN TO LEFT ARM 01/25. WILL MONITOR.
[2017-02-22 04:00] VITALS: BP 106/60
[2017-02-22 06:49] LABS: BASOPHILS 0.2 % (0-2); EOSINOPHILS 2.9 % (0-7); HEMOGLOBIN 8.6 g/dL (13.5-17.5); IMMATURE GRANULOCYTES 2.9 % (0-5); LYMPHOCYTES 27.3 % (15-50); MCH 28.2 pg (26.0-34.0); MCHC 31.9 g/dL (31.0-37.0); MCV 88.5 fL (80.0-100.0); MEAN PLATELET VOLUME 8.9 fL (7.4-10.4); MONOCYTES 6.2 % (2-11); NEUTROPHILS 60.5 % (40-80); RBC 3.05 10x6/uL (4.20-6.10); RDW 14.1 % (11.5-14.5); WBC 5.2 10x3/uL (4.8-10.8)
[2017-02-22 06:51] LABS: PLATELET COUNT 227 10x3/uL (130-400)
[2017-02-22 07:04] LABS: CALC OSMOLALITY 271 mosm/kg (275-300); CALCIUM 8.5 mg/dL (8.5-10.1); CHLORIDE - SERUM 104 mmol/L (98-107); GLUCOSE 94 mg/dL (74-106); POTASSIUM - SERUM 4.2 mmol/L (3.5-5.1); SODIUM 136 mmol/L (136-145); UREA NITROGEN 13 mg/dL (7-18)
[2017-02-22 07:09] LABS: CREATININE - SERUM 0.8 mg/dL (0.6-1.3); eGFR NON AFRICAN AMERICAN > 90 mL/min (90-120)
[2017-02-22 07:58] VITALS: BP 117/70
--- NOTE | 2017-02-22 08:23 | NUR ---
RESTING QUIETLY EATING BREAKFAST DENIES ANY NEEDS AT THIS TIME NAD NOTED
--- NOTE | 2017-02-22 08:30 | NUR ---
ASSESSMENT COMPLETED. TELEMERTY SHOW ST. RIGHT FA IV WITH NS AT 10. DRSG TO LEFT ARM DRY AND INTAT, ELAVATED ON PILLOWS. RIGHT HAND SWOLLEN, ELEVATED ON PILLOWS. UP WITH PT. DENIES ANY NEEDS. WILL MONITOR
[2017-02-22 11:14] VITALS: BP 117/62
--- NOTE | 2017-02-22 14:36 | NUR ---
LYING QUIETLY. DENIES AND NEEDS AT PRESENT TIME. ARMS UPON PILLOWS. NO NEEDS VOICED
[2017-02-22 16:18] VITALS: BP 130/56
--- NOTE | 2017-02-22 18:17 | NUR ---
UP IN BEDSIDE CHAIR WITH ARMS UP ON PILLOW. DRSG TO LEFT ARM DRY AND INTACT. WILL MONITOR
[2017-02-22 20:00] VITALS: BP 123/69
--- NOTE | 2017-02-22 21:02 | NUR ---
PT AWAKE, ALERT, ORIENTED, SITTING UP IN CHAIR, C/O GREAT PAIN TO LEFT ARM, STATES DILAUDID IS EFFECTIVE IN CONTROLLING IT. PT DENIES ANY OTHER NEEDS, VERBALLY AGREES TO CALL ME WITH ANY NEEDS/ASSISTANCE. CONTINUE TO MONITOR CLOSELY.
[2017-02-23] VITALS: BP 118/68
--- NOTE | 2017-02-23 03:29 | NUR ---
JOHN FRIAS FELL OFF PTS EMAR R/T TIMING OUT. PER DEANN MUÑOZ, SAMPLE PREP TECHNICIAN, PERMISSION GIVEN TO RESTART. PT IS CURRENTLY RESTING COMFORTABLY, DENIES ANY NEEDS. CONTINUE TO MONITOR CLOSELY.
[2017-02-23 04:00] VITALS: BP 121/66
[2017-02-23 06:18] LABS: CALC OSMOLALITY 263 mosm/kg (275-300); CALCIUM 7.7 mg/dL (8.5-10.1); CARBON DIOXIDE 23.4 mmol/L (21.0-32.0); CHLORIDE - SERUM 99 mmol/L (98-107); CREATININE - SERUM 0.6 mg/dL (0.6-1.3); GLUCOSE 89 mg/dL (74-106); POTASSIUM - SERUM 4.4 mmol/L (3.5-5.1); SODIUM 133 mmol/L (136-145); UREA NITROGEN 11 mg/dL (7-18); eGFR NON AFRICAN AMERICAN > 90 mL/min (90-120)
--- NOTE | 2017-02-23 06:23 | NUR ---
PT AWAKE, ALERT, ORIENTED, SITTING UP IN CHAIR, NO NEEDS AT THIS TIME. CONTINUE TO MONITOR CLOSELY.
[2017-02-23 06:54] LABS: BASOPHILS 0.2 % (0-2); EOSINOPHILS 2.5 % (0-7); HEMATOCRIT 26.3 % (42.0-54.0); HEMOGLOBIN 8.4 g/dL (13.5-17.5); IMMATURE GRANULOCYTES 2.3 % (0-5); LYMPHOCYTES 29.7 % (15-50); MCH 27.8 pg (26.0-34.0); MCHC 31.9 g/dL (31.0-37.0); MCV 87.1 fL (80.0-100.0); MEAN PLATELET VOLUME 8.7 fL (7.4-10.4); MONOCYTES 7.2 % (2-11); NEUTROPHILS 58.1 % (40-80); PLATELET COUNT 258 10x3/uL (130-400); RBC 3.02 10x6/uL (4.20-6.10); WBC 4.7 10x3/uL (4.8-10.8)
--- NOTE | 2017-02-23 07:15 | NUR ---
RECIEVED REPORT ON PATIENT, PATIENT IS ALERT AND ORIENTED AT THIS TIME, PATIENT HAS A R WRIST IV WITH NS AT KVO. PATIENT IS SR ON MONITOR WITH A RATE OF 96 AT THIS TIME. PATIENT SITTING UP IN CHAIR, FAMILY AT BEDSIDE. PATIENT DENIES ANY NEEDS. WILL CONT TO MONITOR PATIENT. CPOC
[2017-02-23 08:00] VITALS: BP 123/75
--- NOTE | 2017-02-23 09:00 | NUR ---
NORCO GIVEN FOR PAIN, 12/25 IN ARM. MORNING MEDICATION GIVEN, ASSESSMENT DONE. PATIENT DENIES ANY NEEDS. BED LOW AND LOCKED. CALL LIGHT IN REACH. CPOC
--- NOTE | 2017-02-23 10:52 | NUR ---
PATIENT PULLED IV USP OUT, IV DC WITH CATH TIP INTACT. DR LONGORIA NOTIFIED AND STATED SHE WOULD SWITCH ANTIBIOTICS TO PO. CPOC
[2017-02-23 12:00] VITALS: BP 129/68
[2017-02-23] MEDS ORDERED: KEFLEX500 MG PO (12:48)
--- NOTE | 2017-02-23 14:30 | NUR ---
norco given for pain 7/10 in arm. denies any other needs. waiting on dc paperwork
--- NOTE | 2017-02-23 17:11 | NUR ---
Patient Name: JAYNA JI Encounter No: [id number] : 1955 Primary Insurance: MEDICARE A & B Anticipated DC Date: 02-23-2017 Planned Disposition: Home with Home Health External Planned Provider: [facility] DCP follow-up note: CM MET WITH PT IN ROOM, PT REPORTS HE IS GOING HOME TODAY, WILL RESUME WITH [facility]. IMPORTANT MESSAGE FROM MEDICARE PROVIDED AND EXPLAINED. CM CALLED [facility], , SPOKE TO PROPOSAL REVIEW ANALYST NURSE MATTA AND PROVIDED REFERRAL FOR RESUMPTION. CM FAXED REFERRAL AND DISCHARGE INFORMATION TO [facility] AT [phone] AND [place] OFFICE, . PT NOTIFIED. SPOUSE HERE TO TRANSPORT HOME. Mina Montanez, CASE MANAGEMENT
--- NOTE | 2017-02-23 17:14 | NUR ---
PATIENT SIGNED DC PAPERWORK, DENIES ANY QUESTIONS. PATIENT READY FOR DC
--- NOTE | 2017-02-23 17:24 | NUR ---
OT NOTE: PT COMPLETED BUE EXS FOR INCREASED I WITH BED MOB. PT COMPLETED BED MOB WITH CGA/MIN A. PT COMPLETED SIMPLE ADL WITH SET UP. THANK YOU, RADHA CALDERON/Charlene
== END 2017-02-23 17:15 | disposition home health service (06) | DRG 464 ==
LOC: D.M2 15:44
PROVIDERS: Family Medicine; Orthopaedic Surgery; ADMIT Family Medicine
PROC: 0JBH0ZZ Excision of Left Lower Arm Subcutaneous Tissue and Fascia, Open Approach (ICD-10-PCS; principal; 2017-02-17 12:45)
PROC: 2W1DX6Z Compression of Left Lower Arm using Pressure Dressing (ICD-10-PCS; 2017-02-17 12:45)
PROC: 0JQH0ZZ Repair Left Lower Arm Subcutaneous Tissue and Fascia, Open Approach (ICD-10-PCS; 2017-02-20 13:45)
DX: M60.001 Infective myositis, unspecified left arm (principal); L03.114 Cellulitis of left upper limb; F11.20 Opioid dependence, uncomplicated; E44.0 Moderate protein-calorie malnutrition; M70.22 Olecranon bursitis, left elbow; B95.61 Methicillin susceptible Staphylococcus aureus infection as the cause of diseases classified elsewhere; R74.8 Abnormal levels of other serum enzymes; G89.4 Chronic pain syndrome; Z68.28 Body mass index [BMI] 28.0-28.9, adult; R16.0 Hepatomegaly, not elsewhere classified; Z87.891 Personal history of nicotine dependence

== ENCOUNTER 2017-03-01 13:18 | Emergency (ER) | payer MEDICARE ==
[~2017-03-01 13:18] MED LIST changes: +KEFLEX500 MG PO
== END 2017-03-01 14:33 | disposition home or self-care (01) ==
LOC: D.ER 13:18
DX: Z76.0 Encounter for issue of repeat prescription (principal)

== ENCOUNTER 2017-03-10 12:51 | Emergency (ER) | payer MEDICARE ==
[2017-03-10 14:25] LABS: APPEARANCE HAZY (CLEAR); BILIRUBIN NEGATIVE (NEGATIVE); COLOR YELLOW (YELLOW); GLUCOSE NEGATIVE (NEGATIVE); KETONE NEGATIVE (NEGATIVE); NITRITE NEGATIVE (NEGATIVE); PROTEIN NEGATIVE (NEGATIVE); SPECIFIC GRAVITY 1.015 (1.005-1.020); UROBILINOGEN NORMAL (NORMAL)
[2017-03-10 14:26] LABS: UDS - AMPHET NEGATIVE QUAL (NEGATIVE); UDS - BARB NEGATIVE QUAL (NEGATIVE); UDS - BENZO NEGATIVE QUAL (NEGATIVE); UDS - COCAINE NEGATIVE QUAL (NEGATIVE); UDS - OPIATE NEGATIVE QUAL (NEGATIVE); UDS - PCP NEGATIVE QUAL (NEGATIVE); UDS - THC NEGATIVE QUAL (NEGATIVE)
[2017-03-10 15:08] LABS: BASOPHILS 0.2 % (0-2); EOSINOPHILS 0.9 % (0-7); HEMATOCRIT 30.4 % (42.0-54.0); HEMOGLOBIN 9.7 g/dL (13.5-17.5); IMMATURE GRANULOCYTES 0.5 % (0-5); LYMPHOCYTES 33.8 % (15-50); MCH 26.6 pg (26.0-34.0); MCHC 31.9 g/dL (31.0-37.0); MCV 83.3 fL (80.0-100.0); MEAN PLATELET VOLUME 8.6 fL (7.4-10.4); NEUTROPHILS 56.6 % (40-80); RBC 3.65 10x6/uL (4.20-6.10); RDW 13.5 % (11.5-14.5); WBC 6.4 10x3/uL (4.8-10.8)
[2017-03-10 15:14] LABS: PLATELET COUNT 406 10x3/uL (130-400)
[2017-03-10 15:18] LABS: ALBUMIN 2.6 g/dL (3.4-5.0); ALKALINE PHOSPHATASE 138 U/L (46-116); ALT (SGPT) 43 U/L (10-68); BILIRUBIN - TOTAL 0.29 mg/dL (0.2-1.3); CALC OSMOLALITY 275 mosm/kg (275-300); CALCIUM 8.8 mg/dL (8.5-10.1); CARBON DIOXIDE 20.7 mmol/L (21.0-32.0); CHLORIDE - SERUM 105 mmol/L (98-107); CREATININE - SERUM 0.7 mg/dL (0.6-1.3); GLUCOSE 91 mg/dL (74-106); POTASSIUM - SERUM 3.7 mmol/L (3.5-5.1); PROTEIN - SERUM 7.6 g/dL (6.4-8.2); SODIUM 137 mmol/L (136-145); UREA NITROGEN 17 mg/dL (7-18); eGFR NON AFRICAN AMERICAN > 90 mL/min (90-120)
== END 2017-03-10 17:36 | disposition home or self-care (01) ==
LOC: D.ER 12:51
PROVIDERS: Nurse Practitioner Family
DX: S16.1XXA Strain of muscle, fascia and tendon at neck level, initial encounter (principal); W19.XXXA Unspecified fall, initial encounter; Y93.89 Activity, other specified; Y92.029 Unspecified place in mobile home as the place of occurrence of the external cause; S09.90XA Unspecified injury of head, initial encounter

== ENCOUNTER 2017-03-11 15:52 | Inpatient (IN) | payer MEDICARE ==
[2017-03-11 19:26] LABS: HEMOGLOBIN A1C 5.5 % (4.8-6.0)
[2017-03-11 20:00] VITALS: BP 136/74
[2017-03-12] VITALS (15 sets, daily range): BP systolic 102–136; BP diastolic 49–86; BMI 28.9; BMI 28.8
[2017-03-12 05:24] LABS: BASOPHILS 0.1 % (0-2); EOSINOPHILS 0.9 % (0-7); HEMATOCRIT 28.3 % (42.0-54.0); IMMATURE GRANULOCYTES 0.4 % (0-5); LYMPHOCYTES 25.8 % (15-50); MCH 26.2 pg (26.0-34.0); MCHC 31.8 g/dL (31.0-37.0); MCV 82.3 fL (80.0-100.0); MEAN PLATELET VOLUME 9.3 fL (7.4-10.4); MONOCYTES 11.3 % (2-11); NEUTROPHILS 61.5 % (40-80); PLATELET COUNT 397 10x3/uL (130-400); RBC 3.44 10x6/uL (4.20-6.10); RDW 13.8 % (11.5-14.5)
[2017-03-12 05:53] LABS: ALBUMIN 2.6 g/dL (3.4-5.0); ALKALINE PHOSPHATASE 119 U/L (46-116); ALT (SGPT) 35 U/L (10-68); BILIRUBIN - TOTAL 0.33 mg/dL (0.2-1.3); CALC OSMOLALITY 270 mosm/kg (275-300); CALCIUM 8.8 mg/dL (8.5-10.1); CARBON DIOXIDE 21.9 mmol/L (21.0-32.0); CHLORIDE - SERUM 103 mmol/L (98-107); CREATININE - SERUM 0.7 mg/dL (0.6-1.3); GLUCOSE 102 mg/dL (74-106); POTASSIUM - SERUM 3.6 mmol/L (3.5-5.1); PROTEIN - SERUM 7.8 g/dL (6.4-8.2); SODIUM 135 mmol/L (136-145); UREA NITROGEN 14 mg/dL (7-18); eGFR NON AFRICAN AMERICAN > 90 mL/min (90-120)
--- NOTE | 2017-03-12 07:30 | NUR ---
AWAKE AND ALERT. ORIENTED X3. C/O PAIN AT THIS TIME. WILL GIVE PRN. LUNGS ARE CLEAR BILATERLLY, NO COUGH NOTED. SKIN IS INTACT WITHOUT REDNESS EXCEP INCISION LINE TO LEFT FOREARM WHICH HAS A DRY INTACT DRESSING IN PLACE. SL TO RIGHT AC IS PATENT IV TO RIGHT HAND IS PATNET WITHOUT REDNESS AT INSERTION SITE. AT BEDSIDE.
--- NOTE | 2017-03-12 08:25 | NUR ---
REQUESTED AND GIVEN 4MG MORPHINE SLOW IVP FOR LEFT ARM PAIN LEVEL 8. WILL MONITOR. AT BEDSIDE.
--- NOTE | 2017-03-12 09:00 | NUR ---
CONSENTS COMPLETED. ALL QUESTIONS ANSWERED.
--- NOTE | 2017-03-12 12:37 | NUR ---
REQUESTED AND GIVEN 4MG MORPHINE SLOW IVP FOR C/O LEFT ELBOW PAIN LEVEL 8. WILL MONITOR.
--- NOTE | 2017-03-12 15:40 | NUR ---
OFF UNIT TO SURGERY. IN ROOM.
--- NOTE | 2017-03-12 17:25 | NUR ---
ANESTHESIA PAIN MEDICATION CHANGE SECONDARY TO DILAUDID NOT BEING STOCKED IN PHARMACY. SEE NEW ORDERS IN MAR BY DR FONG.
--- NOTE | 2017-03-12 18:25 | NUR ---
RETURNED FROM SURGERY. A/O X3. NO C/O AT THIS TIME. DENIES NEEDS.
--- NOTE | 2017-03-12 19:25 | NUR ---
OT NOTE: PT REQUIRES MIN A WITH HYGIENE. THANK YOU, KALI CALDERON
[2017-03-13 05:07] LABS: BASOPHILS 0.2 % (0-2); EOSINOPHILS 0.7 % (0-7); HEMATOCRIT 28.5 % (42.0-54.0); IMMATURE GRANULOCYTES 0.5 % (0-5); LYMPHOCYTES 20.9 % (15-50); MCH 26.3 pg (26.0-34.0); MCHC 31.6 g/dL (31.0-37.0); MCV 83.3 fL (80.0-100.0); MEAN PLATELET VOLUME 9.9 fL (7.4-10.4); NEUTROPHILS 59.7 % (40-80); PLATELET COUNT 272 10x3/uL (130-400); RBC 3.42 10x6/uL (4.20-6.10); RDW 13.8 % (11.5-14.5); WBC 5.8 10x3/uL (4.8-10.8)
[2017-03-13 05:28] LABS: ALBUMIN 2.5 g/dL (3.4-5.0); ALKALINE PHOSPHATASE 101 U/L (46-116); ALT (SGPT) 31 U/L (10-68); CALC OSMOLALITY 275 mosm/kg (275-300); CALCIUM 8.6 mg/dL (8.5-10.1); CARBON DIOXIDE 24.7 mmol/L (21.0-32.0); CHLORIDE - SERUM 105 mmol/L (98-107); CREATININE - SERUM 0.7 mg/dL (0.6-1.3); GLUCOSE 122 mg/dL (74-106); PROTEIN - SERUM 6.9 g/dL (6.4-8.2); SODIUM 138 mmol/L (136-145); UREA NITROGEN 11 mg/dL (7-18); eGFR NON AFRICAN AMERICAN > 90 mL/min (90-120)
--- NOTE | 2017-03-13 06:33 | NUR ---
BS 142. NO COVERAGE NEEDED PER SS.
--- NOTE | 2017-03-13 08:14 | NUR ---
AWAKE AND ALERT. ORIENTED X3. NO C/O AT THIS TIME. LUNGS ARE CLEAR BILATERALLY, NO COUGH NOTED. SKIN IS INTACT WITHOUT REDNESS EXCEPT INCISION TO LEFT ARE WHCIH HAS A DRY INTACT DRESSING IN PLACE. SL TO RIGHT HAND IS PATNET WITHOUT REDNESS. SITTING UP ON SIDE OF BED EATING BREAKFAST. AT BEDSIDE.
[2017-03-13 08:38] VITALS: BP 146/72
--- NOTE | 2017-03-13 09:00 | NUR ---
UP TO BSC. NO RESULTS WITH BM.
--- NOTE | 2017-03-13 09:42 | OP ---
PATIENT NAME: JAYNA JI MEDICAL RECORD: [id number] :55 LOCATION:D.MS [id number] ADMISSION DATE:03/12/17 SURGEON: DURAN MOON DO DATE OF OPERATION: 03/12/2017 PROCEDURE PERFORMED: Left elbow irrigation and debridement with wound closure. PREOPERATIVE DIAGNOSIS: Left elbow wound dehiscence. POSTOPERATIVE DIAGNOSIS: Left elbow wound dehiscence. INDICATIONS: Mr. Ji is a 61-year-old male that had a left arm I&D for abscess and cellulitis a few weeks ago, which in the first surgery had a wound VAC put on and then closure on the second surgery. He was at home and has fallen several times. Finally, the last time he fell, he split open his wound on his elbow. Once this happened, he was brought to the ER and admitted and informed that he is to have a left elbow I&D and closure. He consented to the procedure. SURGEON: Duran Moon DO DESCRIPTION OF PROCEDURE: No complications. Blood loss approximately 50 mL. The patient was taken after getting a block in the preoperative area and taken to the operative suite. He was given a gram of Ancef as he had this scheduled. Once this was done, a timeout was performed, it was agreed that the left arm is the correct arm, elbow was the correct elbow and the patient was the correct the patient. Some sutures were removed around the site after the timeout performed and the procedure commenced and then the wound was thoroughly irrigated and then brush was used to brush of any skin. The wound edges were then taken and the knife was used to cut the wound edges to a bleeding surface. Then, a Metzenbaum scissor was used to undermine the skin to make it mobile on either side of the wound. Once this was done, it was irrigated once more. Then, the elbow was put to extension and the wound was closed with 2-0 Prolene using a Donati type stitch. Once this was done, the skin was cleaned and Adaptic, 4 x 4s, ABD were placed over the skin and then a [place]bril and a splint was placed on the anterior arm to keep the arm in extension allowing for wound healing without any stress. The patient was awakened and taken to recovery in stable condition. TRANSINT:[id number] Voice Confirmation ID: [id number] DOCUMENT ID: [id number] DURAN MOON DO at 0942 CC: [id number] DICTATION DATE: 03/12/171727 GEM EXPERT: 03/12/172055 ADM IN [facility] [address] [id number]
--- NOTE | 2017-03-13 10:30 | NUR ---
UP TO BSC. UNABLE TO HAVE BM. CHECKED FOR IMPACTION. LARGE AMOUNT OF STOOL FELT BUT SOFT. WILL MONITOR.
--- NOTE | 2017-03-13 13:00 | NUR ---
C/O INTENSE PAIN TO LEFT ELBOW. GIVEN ONE HYDROCODONE PO FOR SAME. WILL MONITOR.
[2017-03-13 13:01] VITALS: BP 129/70
--- NOTE | 2017-03-13 13:15 | NUR ---
CONTINUES WITH C/O INCREASED PAIN ICE PLACED TO LEFT ELBOW. WILL MONITOR.
--- NOTE | 2017-03-13 13:15 | NUR ---
OT NOTE: PT REPORTS FEELING BETTER FOLLOWING SURGICAL PROCEDURE. HOWEVER, CONTINUES TO REPORT SIGNIFICANT PAIN. PT DOING WELL.. ABLE TO PERFORM BED MOB WITH MIN ASSIST; SIT TO STAND WITH MIN ASSIST; INSTRUCTED PT TO PERFORM FINGER FLEX/EXT EXS TO PREVENT FURTHER EDEMA AND MAINTAIN JOINT MOBILITY
--- NOTE | 2017-03-13 13:45 | NUR ---
CONTINUES WITH C/O INCREASED PAIN TO LEFT ELBOW. GIVEN 4MG MORPHINE SLOW IVP FOR SAME, LEVEL 10. WILL MONITOR.
[2017-03-13 16:18] VITALS: BP 124/63
--- NOTE | 2017-03-13 16:43 | NUR ---
Rehab Note- Acute Rehab Prescreen order received. The patient has had a recent stay at [facility] and completed his treatment. Would recommend a SNF for a longer treatment plan of care at this time. Thank you for this referral! Denisa Rangel RN Clinical Liaison, [facility] Re[facility]
--- NOTE | 2017-03-13 18:46 | NUR ---
SAT UP ON SIDE OF BED AND ATE ABOUT HALF OF SUPPER. INCONTINENT OF LOOSE WATERY STOOL. SKIN CARE PER STAFF. DENEIS NEEDS. NO CHANGES NOTED.
[2017-03-13 20:00] VITALS: BP 140/78
--- NOTE | 2017-03-13 21:30 | NUR ---
REC'D LYING IN BED. ALERT AND ORIENTED X4. REPORTED PAIN 8/10 IN ELBOW. WILL ADMIN PAIN MEDS PRESCRIBED. DENIED NEEDS AT THIS TIME. INSTRUCTED TO CALL IF NEEDED ANYTHING, VERBALIZED UNDERSTANDING. BED LOW, LOCKED, CALL LIGHT IN REACH. WILL CONT TO MONITOR.
[2017-03-14] VITALS: BP 113/53
--- NOTE | 2017-03-14 03:00 | NUR ---
PT RESTING QUIETLY, EYES CLOSED. RESP EVEN, UNLABORED. NO DISTRESS NOTED. CONTINUE EARTH SCIENCES PROFESSOR'S PLAN OF CARE.
[2017-03-14 07:49] LABS: BASOPHILS 0.2 % (0-2); EOSINOPHILS 0.9 % (0-7); HEMATOCRIT 26.7 % (42.0-54.0); HEMOGLOBIN 8.3 g/dL (13.5-17.5); IMMATURE GRANULOCYTES 0.3 % (0-5); LYMPHOCYTES 41.4 % (15-50); MCH 26.2 pg (26.0-34.0); MCHC 31.1 g/dL (31.0-37.0); MCV 84.2 fL (80.0-100.0); MEAN PLATELET VOLUME 8.9 fL (7.4-10.4); MONOCYTES 11.9 % (2-11); NEUTROPHILS 45.3 % (40-80); PLATELET COUNT 290 10x3/uL (130-400); RBC 3.17 10x6/uL (4.20-6.10); RDW 13.8 % (11.5-14.5); WBC 6.6 10x3/uL (4.8-10.8)
[2017-03-14 08:06] LABS: ALBUMIN 2.4 g/dL (3.4-5.0); ALKALINE PHOSPHATASE 92 U/L (46-116); ALT (SGPT) 30 U/L (10-68); CALC OSMOLALITY 277 mosm/kg (275-300); CALCIUM 8.8 mg/dL (8.5-10.1); CHLORIDE - SERUM 105 mmol/L (98-107); CREATININE - SERUM 0.6 mg/dL (0.6-1.3); GLUCOSE 113 mg/dL (74-106); POTASSIUM - SERUM 3.7 mmol/L (3.5-5.1); PROTEIN - SERUM 6.7 g/dL (6.4-8.2); SODIUM 139 mmol/L (136-145); UREA NITROGEN 9 mg/dL (7-18); eGFR NON AFRICAN AMERICAN > 90 mL/min (90-120)
--- NOTE | 2017-03-14 08:32 | NUR ---
PATIENT RESTING IN BED. PATIENT IS AWAKE, ALERT, AND ORIENTED X4. PATIENT COMPLAINS OF PAIN IN HIS LEFT ELBOW. PATIENT RATES HIS PAIN LEVEL A "10" ON A 0-10 SCALE. PRN MORPHINE 4 MG IV GIVEN FOR PAIN LEVEL. ASSESSMENT COMPLETED. SEE FLOWSHEET FOR ANY DETAILS. LEFT ELBOW/ARM CAST DRESSING IN PLACE WITH JUAN WRAP. PATIENT DENIES ANY NEEDS AT PRESENT TIME. CALL LIGHT IN PATIENT'S REACH. WILL MONITOR PATIENT.
[2017-03-14 08:42] VITALS: BP 143/78
[2017-03-14 12:52] VITALS: BP 114/66
[2017-03-14 16:04] VITALS: BP 140/83
--- NOTE | 2017-03-14 16:14 | NUR ---
PATIENT RESTING IN BED. PATIENT COMPLAINS OF PAIN IN HIS LEFT ELBOW. PATIENT RATES PAIN LEVEL AN "8" ON A 0-10 SCALE. PRN HYDROCODONE GIVEN TO PATIENT FOR PAIN. PATIENT TOLERATED WELL. CALL LIGHT IN PATIENT'S REACH. WILL MONITOR PATIENT.
[2017-03-14 20:00] VITALS: BP 130/59
--- NOTE | 2017-03-14 21:19 | NUR ---
REC'D LYING IN BED. ALERT AND ORIENTED X4. REPORTED PAIN 8/. WILL ADMIN MEDS PRESCRIBED. DENIED NEEDS AT THIS TIME. INTRUCTED TO CALL IF NEEDED ANYTHING VERBALIZED UNDERSTANDING. NO DISTRESS NOTED. BED LOW, LOCKED, CALL LIGHT IN REACH.
[2017-03-15] VITALS: BP 128/65
--- NOTE | 2017-03-15 03:00 | NUR ---
PT RESTING QUIETLY, EYES CLOSED. RESP EVEN, UNLABORED. NO DISTRESS NOTED. CONTINUE ELECTRO MECHANICAL ENGINEER'S PLAN OF CARE.
[2017-03-15 05:21] LABS: BASOPHILS 0.2 % (0-2); EOSINOPHILS 3.4 % (0-7); HEMATOCRIT 26.3 % (42.0-54.0); HEMOGLOBIN 8.2 g/dL (13.5-17.5); IMMATURE GRANULOCYTES 0.5 % (0-5); LYMPHOCYTES 31.2 % (15-50); MCH 25.9 pg (26.0-34.0); MCHC 31.2 g/dL (31.0-37.0); MCV 83.2 fL (80.0-100.0); MEAN PLATELET VOLUME 9.3 fL (7.4-10.4); MONOCYTES 14.1 % (2-11); NEUTROPHILS 50.6 % (40-80); RBC 3.16 10x6/uL (4.20-6.10); RDW 13.7 % (11.5-14.5)
[2017-03-15 05:22] LABS: PLATELET COUNT 372 10x3/uL (130-400); WBC 4.4 10x3/uL (4.8-10.8)
[2017-03-15 05:37] LABS: ALBUMIN 2.3 g/dL (3.4-5.0); ALKALINE PHOSPHATASE 99 U/L (46-116); ALT (SGPT) 32 U/L (10-68); BILIRUBIN - TOTAL 0.12 mg/dL (0.2-1.3); CALC OSMOLALITY 274 mosm/kg (275-300); CALCIUM 8.9 mg/dL (8.5-10.1); CARBON DIOXIDE 26.2 mmol/L (21.0-32.0); CHLORIDE - SERUM 105 mmol/L (98-107); CREATININE - SERUM 0.7 mg/dL (0.6-1.3); GLUCOSE 104 mg/dL (74-106); POTASSIUM - SERUM 3.5 mmol/L (3.5-5.1); PROTEIN - SERUM 7.2 g/dL (6.4-8.2); SODIUM 138 mmol/L (136-145); UREA NITROGEN 11 mg/dL (7-18); eGFR NON AFRICAN AMERICAN > 90 mL/min (90-120)
--- NOTE | 2017-03-15 07:22 | NUR ---
PATIENT RESTING IN THE BED. PATIENT RECEIVING A BREATHING TREATMENT. PATIENT IS AWAKE, ALERT, AND ORIENTED X4. CALL LIGHT IN PATIENT'S REACH. PATIENT STATES HE "FEELS A LOT BETTER THAN YESTERDAY". PATIENT DENIES ANY NEEDS AT PRESENT TIME. WILL MONITOR PATIENT.
[2017-03-15 09:33] VITALS: BP 130/77
[2017-03-15 12:09] VITALS: BP 121/64
--- NOTE | 2017-03-15 13:54 | NUR ---
PATIENT IS RESTING QUIETLY ON HIS LEFT SIDE. EYES ARE CLOSED. RESPIRATIONS ARE EVEN AND UNLABORED. LEFT ARM IS ELEVATED ON A PILLOW. CALL LIGHT IN PATIENT'S REACH. WILL MONITOR.
--- NOTE | 2017-03-15 19:35 | NUR ---
REC'D LYING IN BED. ALERT AND ORIENTED X4. REPORTED 8/10 ON PAIN. NO DISTRESS NOTED. DENIED NEEDS AT THIS TIME. INSTRUCTED TO CALL IF NEEDED ANYTING, VERBALIZED UNDERSTANDING. WILL ADMIN MEDS PRESCRIBED. BED LOW, LOCKED, CALL LIGHT IN REACH.
[2017-03-15 20:00] VITALS: BP 111/75
[2017-03-16 04:00] VITALS: BP 133/72
[2017-03-16 05:49] LABS: BASOPHILS 0.2 % (0-2); HEMATOCRIT 29.2 % (42.0-54.0); HEMOGLOBIN 8.9 g/dL (13.5-17.5); IMMATURE GRANULOCYTES 0.6 % (0-5); LYMPHOCYTES 32.2 % (15-50); MCH 25.4 pg (26.0-34.0); MCHC 30.5 g/dL (31.0-37.0); MCV 83.4 fL (80.0-100.0); MEAN PLATELET VOLUME 9.2 fL (7.4-10.4); PLATELET COUNT 356 10x3/uL (130-400); RDW 13.8 % (11.5-14.5); WBC 4.6 10x3/uL (4.8-10.8)
[2017-03-16 06:09] LABS: ALBUMIN 2.5 g/dL (3.4-5.0); ALKALINE PHOSPHATASE 107 U/L (46-116); ALT (SGPT) 34 U/L (10-68); BILIRUBIN - TOTAL 0.17 mg/dL (0.2-1.3); CALC OSMOLALITY 276 mosm/kg (275-300); CALCIUM 8.9 mg/dL (8.5-10.1); CARBON DIOXIDE 26.1 mmol/L (21.0-32.0); CHLORIDE - SERUM 104 mmol/L (98-107); CREATININE - SERUM 0.7 mg/dL (0.6-1.3); GLUCOSE 95 mg/dL (74-106); PROTEIN - SERUM 7.2 g/dL (6.4-8.2); SODIUM 139 mmol/L (136-145); UREA NITROGEN 11 mg/dL (7-18); eGFR NON AFRICAN AMERICAN > 90 mL/min (90-120)
[2017-03-16 06:15] LABS: POTASSIUM - SERUM 4.1 mmol/L (3.5-5.1)
--- NOTE | 2017-03-16 07:00 | NUR ---
REPORT RECIEVED ASSUMED CARE. PATIENT IN BED WITH IV INTACT. CAST INTAC. FAMILY AT BEDSIDE, CALL LIGHT WITHIN REACH.
--- NOTE | 2017-03-16 07:37 | NUR ---
PATIENT IN BED WITH LEFT ARM ELEVATED ON PILLOW. CAST INTACT. COFFEE GIVEN TO PATIENT PER REQUEST. IV INTACT. NO COMPLAINTS. FAMILY AT BEDSIDE. CALL LIGHT WITHIN REACH.
[2017-03-16 08:30] VITALS: BP 136/74
--- NOTE | 2017-03-16 08:30 | NUR ---
TRIED TO START ANTIBIOTIC AND GIVE PROTONIX AT THIS TIME. IV LEAKING AND TENDER. PATIENT REFUSED NEW SITE AT THIS TIME BC ORTHO STATED HE WAS BEING DC'D AND DIDNT WANT TO HAVE TO BE STUCK FOR NO REASON. SPOKE WITH FREDRICK GAINES, STATED TO WAIT AND SEE IF HE [facility].
--- NOTE | 2017-03-16 10:33 | NUR ---
REFERRAL SENT TO [facility], SPOKE WITH ODALIS
--- NOTE | 2017-03-16 11:13 | NUR ---
Patient Name: JAYNA JI Admission Status: ER Accout number: [id number] Admission Date: 03-12-2017 : 1955 Admission Diagnosis:DISRUPTION OF EXTERNAL OPERATION (SURGICAL) WOUND, NEC, Attending: MINNIE MAKI Current LOS: 4 Anticipated DC Date: Planned Disposition: Long-Term Facility Primary Insurance: MEDICARE A & B Discharge Planning Comments: CM met with patient to assess discharge planning needs. Patient stated that he is independent with care, but his stated that he will need more rehab before he can come back home. Patient has been in [facility] rehab and has home health with [facility]. Patient would like to go to the skilled facility in [facility]. Patient has a ramp with a rail. Has a bed side commode, cane, shower chair, wheelchair, walker. His Jose will be the one to drive home, but she does not live with him at this time. CM will continue to follow and assist with discharge planning needs. PCP: [facility] ([place]) [phone] Angiography Nurse: Latoya Rutledge * Is the patient Alert and Oriented? Yes 0 * How many steps to enter\exit or inside your home? 0 0 * PCP [facility] 0 * [facility] 0 * Preadmission Environment Home with Family 0 * ADLs Independent 0 * Equipment Bedside Commode Cane Shower Chair Walker Wheelchair 0 * List name and contact numbers for known caregivers / representatives who currently or will assist patient after discharge: -JOSE [phone] 0 * Community resources currently utilized Home Health 0 * Please name any agencies selected above. [facility] 0 * Additional services required to return to the preadmission environment? Yes 0 * Can the patient safely return to the preadmission environment? Yes 0 * Has this patient been hospitalized within the prior 30 days at any hospital? Yes 0 Grand Total: 0
--- NOTE | 2017-03-16 11:45 | NUR ---
OT NOTE: PERFORMED FINGER FLEX/EXT EXS; EDEMA IMPROVED FROM LAST WEEK. ALSO PERFORMED SHOULDER FLEX/EXT EXS. PT REPORTED THAT HE WAS GOING TO THERAPY IN [facility] ( SNF IM ASSUMING). PT PERFORMING BED MOB WITH CGA; SIT TO STAND WITH CGA; GOOD STATIC SITTING BALANCE.
[2017-03-16 13:25] VITALS: BP 113/60
[2017-03-16 16:00] VITALS: BP 126/66
--- NOTE | 2017-03-16 17:00 | NUR ---
IV LEFT OUT. OK WITH DR. MOON TO DC ANCEF. PATIENT IV OUT EARLIER WITH CATH TIP INTACT. DUE TO LEAKING.
--- NOTE | 2017-03-16 17:55 | NUR ---
OT NOTE: PT COMPLETED BED MOB WITH WITH SPV/SBA. PT COMPLETED DYNAMIC SITTING BALANCE WITH SBA AT EOB. PT COMPLETED RUE AROM EXS FOR INCREASED AX TOLERANCE. THANK YOU, RADHA CALDERON/Charlene
--- NOTE | 2017-03-16 19:25 | NUR ---
RECIEVED SHIFT REPORT. PT IS LYING IN BED. ALERT AND ORIENTED AND ABLE TO VERBALIZE NEEDS. PT WITH NO IV ACCESS AT THIS TIME. MD AWARE. DRESSING TO LEFT ARM C/D/I. PT IS AMBULATORY BUT WAS INSTRUCTED TO CALL FOR ANY ASSISTANCE NEEDED. PT STATES PAIN IS 5/10. PT DOES NOT WANT SCD'S ON AT THIS TIME. NO NEEDS ARE VERBALIZED AT THIS TIME. WILL CONTINUE TO MONITOR. SIDE RAILS ARE UP X 2. BED IS IN LOWEST POSITION. CALL LIGHT IS WITHIN REACH.
--- NOTE | 2017-03-16 20:21 | NUR ---
SHIFT ASSESSMENT COMPLETED. PT RECIEVED NO INSULIN PER SLIDING SCALE FOR MCAM=752. NO NEEDS ARE VOICED. WILL MONITOR. SIDE RAILS X 2. BED LOW. CALL LIGHT IN REACH.
[2017-03-17] VITALS: BP 107/42
[2017-03-17 04:00] VITALS: BP 109/778
[2017-03-17 05:04] LABS: BASOPHILS 0.2 % (0-2); EOSINOPHILS 2.3 % (0-7); HEMATOCRIT 28.8 % (42.0-54.0); HEMOGLOBIN 8.8 g/dL (13.5-17.5); IMMATURE GRANULOCYTES 0.4 % (0-5); LYMPHOCYTES 30.6 % (15-50); MCH 25.2 pg (26.0-34.0); MCHC 30.6 g/dL (31.0-37.0); MCV 82.5 fL (80.0-100.0); MEAN PLATELET VOLUME 8.9 fL (7.4-10.4); MONOCYTES 11.9 % (2-11); NEUTROPHILS 54.6 % (40-80); PLATELET COUNT 338 10x3/uL (130-400); RBC 3.49 10x6/uL (4.20-6.10); RDW 13.7 % (11.5-14.5); WBC 4.8 10x3/uL (4.8-10.8)
[2017-03-17 05:23] LABS: ALBUMIN 2.6 g/dL (3.4-5.0); ALKALINE PHOSPHATASE 111 U/L (46-116); ALT (SGPT) 39 U/L (10-68); BILIRUBIN - TOTAL 0.16 mg/dL (0.2-1.3); CALC OSMOLALITY 277 mosm/kg (275-300); CALCIUM 9.2 mg/dL (8.5-10.1); CARBON DIOXIDE 26.9 mmol/L (21.0-32.0); CHLORIDE - SERUM 103 mmol/L (98-107); CREATININE - SERUM 0.6 mg/dL (0.6-1.3); GLUCOSE 104 mg/dL (74-106); POTASSIUM - SERUM 4.1 mmol/L (3.5-5.1); PROTEIN - SERUM 7.4 g/dL (6.4-8.2); SODIUM 139 mmol/L (136-145); UREA NITROGEN 13 mg/dL (7-18); eGFR NON AFRICAN AMERICAN > 90 mL/min (90-120)
[2017-03-17 08:25] VITALS: BP 120/81
--- NOTE | 2017-03-17 09:21 | NUR ---
RECEIVED A CALL FROM ODALIS AT [facility] AND SHE HAS DENIED THE PATIENT, AND WOULD NOT GIVE A REASON WHY. CM SPOKE TO PATIENT AND PATIENT WOULD LIKE TO TRY [place] . REFERRAL SENT TO [facility]. CM WILL CONTINUE TO FOLLOW AND ASSIST WITH DISCHARGE PLANNING NEEDS
[2017-03-17 11:53] VITALS: BP 121/70
--- NOTE | 2017-03-17 11:59 | NUR ---
PT HAS NO DISTRESS NOTE DIS PENDING DISCHARGE AWAITING ACCEPTANCE TO REHAB IN [place] OR HOME WITH HOME HEALTH DECISION.
--- NOTE | 2017-03-17 12:00 | NUR ---
SITTING UP IN ROOM VISITING WITH . DENIES NEEDS. NO C/O PAIN OR DISCOMFORT AT THIS TIME.
[2017-03-17] MEDS ORDERED: Bactroban ointment TOPICAL (12:52)
[2017-03-17] MEDS ORDERED: NICODERM C1 PATCH .1 TRANSDERM (12:52)
[2017-03-17] MEDS ORDERED: HYDROCODONE-APA1 TAB PO (12:53)
--- NOTE | 2017-03-17 13:18 | NUR ---
Patient has been accepted to [facility] to [facility] skilled bed. [facility] will be here between 2:30-3:00 to cook pickled meat. at bedside and aware.
--- NOTE | 2017-03-17 13:33 | NUR ---
OT NOTE: PT LIEING IN BED; INSTRUCTED PT IN FINGER FLEX/EXT EXS AND SHOULDER FLEX/EXT EXS TO IMPROVE EDEMA IN HAND AND PREVENT TIGHTNESS IN SHOULDER DUE TO INACTIVITY. PT ABLE TO DEMONSTRATE 10 REPS X 3 SETS. PT ALSO PERFORMED BED MOB TO INCLUDE ROLLING SIDE TO SIDE AND SUPINE TO SIT WITH SPV; HAD PT PERFORM STANDING ACT AND CHECKED BALANCE..PT CONTINUES WITH STANDING BALANCE DEFECITS WITH DYNAMIC BALANCE AT FAIR+ LEVEL. ABLE TO AMB IN ROOM WITH CGA. PT HAD JUST FOUND OUT THAT HE WAS EXCEPTED INTO [facility]. PT EAGER TO GET THERE AND IMPROVE WITH ALL TASKS SO THAT HE CAN GET BACK HOME
[2017-03-17] MEDS ORDERED: MEDROL DOSE PACK4 MG PO (14:12)
[2017-03-17] MEDS ORDERED: OMNICEF300 MG PO (14:12)
--- NOTE | 2017-03-17 15:59 | NUR ---
PT LEFT VIA WHEELCHAIR WITH FACILITY NURSE AND FOREST ECONOMICS PROFESSOR TO [facility] REPORT CALLED TO LYNETTE PRESTON.
== END 2017-03-17 16:06 | DRG 920 ==
LOC: D.ER 15:52 → D.MS 17:30 → OBSVTIME 17:30 → D.MS 17:30
PROVIDERS: Family Medicine; Orthopaedic Surgery; ADMIT Family Medicine
PROC: 0HBEXZZ Excision of Left Lower Arm Skin, External Approach (ICD-10-PCS; principal; 2017-03-12 13:45)
DX: T81.31XA Disruption of external operation (surgical) wound, not elsewhere classified, initial encounter (principal); F11.20 Opioid dependence, uncomplicated; E44.0 Moderate protein-calorie malnutrition; L03.114 Cellulitis of left upper limb; M48.061 Spinal stenosis, lumbar region without neurogenic claudication; G89.4 Chronic pain syndrome; D63.8 Anemia in other chronic diseases classified elsewhere; R00.0 Tachycardia, unspecified; Z91.81 History of falling; W18.30XA Fall on same level, unspecified, initial encounter

== ENCOUNTER 2017-08-08 13:29 | Emergency (ER) | payer MEDICARE ==
[2017-03-12 13:41] VITALS: BMI 28.8
[~2017-08-08 13:29] MED LIST changes: +Bactroban ointment TOPICAL; +HYDROCODONE-APA1 TAB PO; +MEDROL DOSE PACK4 MG PO; +NICODERM C1 PATCH .1 TRANSDERM; +OMNICEF300 MG PO
[2017-10-05] MEDS ORDERED: NUCYNTA ER100 MG PO (15:08)
[2017-10-05] MEDS ORDERED: CYCLOBENZAPRINE10 MG PO (15:09)
[2017-10-05] MEDS ORDERED: LYRICA75 MG PO (15:09)
== END 2017-08-08 16:07 | disposition home or self-care (01) ==
LOC: D.ER 13:29
DX: S16.1XXA Strain of muscle, fascia and tendon at neck level, initial encounter (principal); W10.9XXA Fall (on) (from) unspecified stairs and steps, initial encounter; Y93.89 Activity, other specified; Y92.019 Unspecified place in single-family (private) house as the place of occurrence of the external cause; S62.601A Fracture of unspecified phalanx of left index finger, initial encounter for closed fracture

== ENCOUNTER 2017-08-15 16:40 | Emergency (ER) | payer MEDICARE ==
[2017-03-12 13:41] VITALS: BMI 28.8
[2017-10-05] MEDS ORDERED: NUCYNTA ER100 MG PO (15:08)
[2017-10-05] MEDS ORDERED: CYCLOBENZAPRINE10 MG PO (15:09)
[2017-10-05] MEDS ORDERED: LYRICA75 MG PO (15:09)
== END 2017-08-15 17:40 | disposition home or self-care (01) ==
LOC: D.ER 16:40
DX: S00.81XA Abrasion of other part of head, initial encounter (principal); S50.312A Abrasion of left elbow, initial encounter; W01.0XXA Fall on same level from slipping, tripping and stumbling without subsequent striking against object, initial encounter; Y93.89 Activity, other specified; Y92.89 Other specified places as the place of occurrence of the external cause; F17.200 Nicotine dependence, unspecified, uncomplicated

== ENCOUNTER 2017-09-14 17:23 | Emergency (ER) | payer MEDICARE ==
[2017-03-12 13:41] VITALS: BMI 28.8
[2017-09-14 20:25] LABS: BASOPHILS 0 % (0-2); EOSINOPHILS 5.7 % (0-7); HEMATOCRIT 33.7 % (42.0-54.0); HEMOGLOBIN 10.3 g/dL (13.5-17.5); IMMATURE GRANULOCYTES 0.6 % (0-5); LYMPHOCYTES 34.4 % (15-50); MCH 23.7 pg (26.0-34.0); MCHC 30.6 g/dL (31.0-37.0); MCV 77.5 fL (80.0-100.0); MEAN PLATELET VOLUME 11.5 fL (7.4-10.4); MONOCYTES 12.4 % (2-11); NEUTROPHILS 46.9 % (40-80); RBC 4.35 10x6/uL (4.20-6.10); RDW 15.6 % (11.5-14.5); WBC 3.1 10x3/uL (4.8-10.8)
[2017-09-14 20:31] LABS: APPEARANCE CLEAR (CLEAR); BILIRUBIN NEGATIVE (NEGATIVE); COLOR YELLOW (YELLOW); GLUCOSE NEGATIVE (NEGATIVE); KETONE NEGATIVE (NEGATIVE); NITRITE NEGATIVE (NEGATIVE); PROTEIN NEGATIVE (NEGATIVE); SPECIFIC GRAVITY 1.015 (1.005-1.020); UROBILINOGEN NORMAL (NORMAL)
[2017-09-14 20:31] LABS: PLATELET COUNT 180 10x3/uL (130-400)
[2017-09-14 21:26] LABS: ALBUMIN 3.2 g/dL (3.4-5.0); ALKALINE PHOSPHATASE 106 U/L (46-116); ALT (SGPT) 74 U/L (10-68); CALC OSMOLALITY 282 mosm/kg (275-300); CALCIUM 8.7 mg/dL (8.5-10.1); CARBON DIOXIDE 25.9 mmol/L (21.0-32.0); CHLORIDE - SERUM 106 mmol/L (98-107); GLUCOSE 86 mg/dL (74-106); POTASSIUM - SERUM 3.6 mmol/L (3.5-5.1); SODIUM 141 mmol/L (136-145); UREA NITROGEN 22 mg/dL (7-18); eGFR NON AFRICAN AMERICAN 80 mL/min (90-120)
[2017-09-14 21:28] LABS: CREATINE KINASE 126 UL (21-232); PRO BNP 91 pg/mL (0-125); TROPONIN-I < 0.017 ng/mL (0.000-0.060)
[2017-10-05] MEDS ORDERED: NUCYNTA ER100 MG PO (15:08)
[2017-10-05] MEDS ORDERED: CYCLOBENZAPRINE10 MG PO (15:09)
[2017-10-05] MEDS ORDERED: LYRICA75 MG PO (15:09)
== END 2017-09-15 01:12 | disposition home or self-care (01) ==
LOC: D.ER 17:23
PROVIDERS: Family Medicine
DX: S00.81XA Abrasion of other part of head, initial encounter (principal); W10.9XXA Fall (on) (from) unspecified stairs and steps, initial encounter; Y93.89 Activity, other specified; Y92.019 Unspecified place in single-family (private) house as the place of occurrence of the external cause; S16.1XXA Strain of muscle, fascia and tendon at neck level, initial encounter; R60.9 Edema, unspecified; M79.605 Pain in left leg; M79.604 Pain in right leg; R60.0 Localized edema

== ENCOUNTER → 2017-10-06 07:05 | Day surgery (SDC) | payer MEDICARE ==
--- NOTE | ~2017-10-06 | OP ---
PATIENT NAME: JAYNA JI MEDICAL RECORD: [id number] :55 LOCATION:[facility] ADMISSION DATE: SURGEON: ROBB PINEDO MD DATE OF OPERATION: 10/06/2017 PREOPERATIVE DIAGNOSES: Lumbar spinal stenosis with bilateral L5 radiculopathy, left greater than right with disc herniation L4-L5, left and foraminal stenosis bilaterally. POSTOPERATIVE DIAGNOSES: Lumbar spinal stenosis with bilateral L5 radiculopathy, left greater than right with disc herniation L4-L5, left and foraminal stenosis bilaterally. PROCEDURES: Lumbar laminectomy, medial facetectomy and foraminotomy bilaterally, sublaminar decompression with METRx retractor. SURGEON: Robb Pinedo MD DESCRIPTION OF THE TECHNIQUE: After induction of general endotracheal anesthesia, the patient was rolled prone on the Dirk frame. Lumbar spine was prepped and draped in usual sterile fashion. Fluoroscopic x-ray and spinal needle localized to L4-L5 interspace on the left side. A stab incision was created with an #11 blade and series of dilators used to advance a METRx retractor at the L4-L5 interspace on the left side. Level was confirmed with fluoroscopic x-ray. A microscope and Midas Juan drill were used to perform a laminectomy, medial facetectomy, and foraminotomy L4-L5 and left. Hypertrophied ligamentum flavum was removed with Cloward rongeurs. Following this, the L4 and L5 nerve roots were decompressed well. There was a disc protrusion ventral to the L5 nerve root, disc material was removed from the disc space with pituitary rongeurs. Following this, the nerve root was decompressed well. Spinous process at L4 was undermined with Midas Juan drill, a METRx retractor was tilted to the opposite side. The ligamentum flavum, which was hypertrophied, was removed from the central canal as well as opposite foramen. Following this, the opposite L4 and L5 nerve roots were decompressed well. Meticulous hemostasis was maintained throughout the wound. Wound was irrigated with copious amounts of Ancef irrigant solution. The fascia was closed with 2-0 Vicryl suture. Subdermal layer was closed with 3-0 Vicryl suture. The skin was closed with uslly. A sterile dressing was applied to the wound. The patient was awakened in good condition, taken to recovery. All counts were reported as correct. Estimated blood loss was minimal. TRANSINT:[id number] Voice Confirmation ID: [id number] DOCUMENT ID: [id number] ROBB PINEDO MD at 1844 CC: [id number] DICTATION DATE: 11/19/17 0944 DIETETIC TECHNICIAN: 11/19/17 1030 [facility] 10/06/17 [place] [address]
[~2017-10-06 07:05] MED LIST changes: +CYCLOBENZAPRINE10 MG PO; +LYRICA75 MG PO; +NORCO 7.5/325 T1 TA1 PO; +NUCYNTA ER100 MG PO; +ULTRAM50 MG PO
[2017-10-06 08:18] VITALS: BP 121/68; BMI 28.9
== END | disposition home or self-care (01) ==
LOC: D.OPS 07:05 → D.PAN 08:30 → D.OPS 08:30 → D.PAN 09:15
DX: M48.061 Spinal stenosis, lumbar region without neurogenic claudication (principal); M51.16 Intervertebral disc disorders with radiculopathy, lumbar region; Z01.812 Encounter for preprocedural laboratory examination

== ENCOUNTER 2017-11-27 17:40 | Emergency (ER) | payer MEDICARE ==
[~2017-11-27] VITALS: Ht 172.7 cm; Wt 79.8 kg
[~2017-11-27 17:40] MED LIST changes: -NORCO 7.5/325 T1 TA1 PO; -ULTRAM50 MG PO
[2017-11-27 17:44] VITALS: Ht 172.7 cm; Wt 79.8 kg
[2017-11-27] MEDS ORDERED: MEDROL DOSE PACK4 MG PO (20:02)
[2017-11-27 21:50] VITALS: BP 129/74
== END 2017-11-27 21:50 | disposition home or self-care (01) ==
LOC: D.ER 17:40
DX: S30.1XXA Contusion of abdominal wall, initial encounter (principal); W10.9XXA Fall (on) (from) unspecified stairs and steps, initial encounter; Y93.89 Activity, other specified; Y92.89 Other specified places as the place of occurrence of the external cause; S22.31XA Fracture of one rib, right side, initial encounter for closed fracture; M54.2 Cervicalgia; M54.5 Low back pain

== ENCOUNTER 2018-01-11 18:54 | Inpatient (IN) | payer MEDICARE ==
[~2018-01-11] VITALS: Ht 172.7 cm; Wt 79.5 kg
[2018-01-11] MEDS ORDERED: ULTRAM50 MG PO (18:59)
[2018-01-11 19:46] LABS: BASOPHILS 0.1 % (0-2); EOSINOPHILS 0.6 % (0-7); HEMATOCRIT 41.4 % (42.0-54.0); HEMOGLOBIN 13.7 g/dL (13.5-17.5); IMMATURE GRANULOCYTES 0.2 % (0-5); LYMPHOCYTES 19.6 % (15-50); MCH 26.3 pg (26.0-34.0); MCHC 33.1 g/dL (31.0-37.0); MCV 79.5 fL (80.0-100.0); MEAN PLATELET VOLUME 9.7 fL (7.4-10.4); MONOCYTES 6.3 % (2-11); NEUTROPHILS 73.2 % (40-80); PLATELET COUNT 240 10x3/uL (130-400); RBC 5.21 10x6/uL (4.20-6.10); RDW 15.2 % (11.5-14.5); WBC 8.4 10x3/uL (4.8-10.8)
[2018-01-11 20:00] LABS: ALBUMIN 3.6 g/dL (3.4-5.0); ALKALINE PHOSPHATASE 136 U/L (46-116); ALT (SGPT) 117 U/L (10-68); BILIRUBIN - TOTAL 0.31 mg/dL (0.2-1.3); CALC OSMOLALITY 278 mosm/kg (275-300); CALCIUM 9.1 mg/dL (8.5-10.1); CARBON DIOXIDE 22.2 mmol/L (21.0-32.0); CHLORIDE - SERUM 104 mmol/L (98-107); CREATININE - SERUM 1.4 mg/dL (0.6-1.3); POTASSIUM - SERUM 4.4 mmol/L (3.5-5.1); PROTEIN - SERUM 7.8 g/dL (6.4-8.2); SODIUM 135 mmol/L (136-145); UREA NITROGEN 31 mg/dL (7-18); eGFR NON AFRICAN AMERICAN 54 mL/min (90-120)
[2018-01-11 20:11] LABS: CKMB 2.3 U/L (0.0-3.6); TROPONIN-I < 0.017 ng/mL (0.000-0.060)
[2018-01-11 20:17] LABS: GLUCOSE 139 mg/dL (74-106)
[2018-01-11 23:00] VITALS: BP 99/67
[2018-01-11 23:29] LABS: APPEARANCE CLOUDY (CLEAR); BILIRUBIN NEGATIVE (NEGATIVE); COLOR DK YELLOW (YELLOW); GLUCOSE NEGATIVE (NEGATIVE); KETONE NEGATIVE (NEGATIVE); NITRITE NEGATIVE (NEGATIVE); PROTEIN TRACE mg/dL (NEGATIVE); UROBILINOGEN NORMAL (NORMAL)
[2018-01-11 23:30] LABS: WHITE CELLS - URINE 0-5 /hpf (0-5)
[2018-01-11 23:31] LABS: BACTERIA FEW /hpf (NONE SEEN); EPITHELIAL CELLS 0-5 /hpf (0-5); RED CELLS - URINE 0-5 /hpf (0-5)
[2018-01-12 01:00] LABS: BASOPHILS 0.1 % (0-2); EOSINOPHILS 0.8 % (0-7); HEMATOCRIT 44.7 % (42.0-54.0); HEMOGLOBIN 14.7 g/dL (13.5-17.5); IMMATURE GRANULOCYTES 0.2 % (0-5); LYMPHOCYTES 28.3 % (15-50); MCH 26.5 pg (26.0-34.0); MCHC 32.9 g/dL (31.0-37.0); MCV 80.5 fL (80.0-100.0); MEAN PLATELET VOLUME 10.1 fL (7.4-10.4); MONOCYTES 6.5 % (2-11); NEUTROPHILS 64.1 % (40-80); PLATELET COUNT 254 10x3/uL (130-400); RBC 5.55 10x6/uL (4.20-6.10); RDW 15.3 % (11.5-14.5); WBC 8.3 10x3/uL (4.8-10.8)
[2018-01-12 01:24] LABS: ALBUMIN 3.8 g/dL (3.4-5.0); ALKALINE PHOSPHATASE 139 U/L (46-116); ALT (SGPT) 119 U/L (10-68); BILIRUBIN - TOTAL 0.27 mg/dL (0.2-1.3); CALC OSMOLALITY 284 mosm/kg (275-300); CHLORIDE - SERUM 103 mmol/L (98-107); CKMB 2.3 U/L (0.0-3.6); CREATINE KINASE 54 UL (21-232); CREATININE - SERUM 1.7 mg/dL (0.6-1.3); GLUCOSE 158 mg/dL (74-106); POTASSIUM - SERUM 4.3 mmol/L (3.5-5.1); PROTEIN - SERUM 8.4 g/dL (6.4-8.2); SODIUM 137 mmol/L (136-145); TROPONIN-I < 0.017 ng/mL (0.000-0.060); UREA NITROGEN 34 mg/dL (7-18); eGFR NON AFRICAN AMERICAN 44 mL/min (90-120)
[2018-01-12 02:24] VITALS: BP 130/83; Ht 172.7 cm; Wt 79.5 kg
[2018-01-12 08:32] VITALS: BP 93/66
[2018-01-12 11:54] VITALS: BP 121/80
[2018-01-12 17:38] VITALS: BP 100/67
[2018-01-12 20:00] VITALS: BP 147/89
[2018-01-13] VITALS: BP 129/79
[2018-01-13 04:00] VITALS: BP 110/71
[2018-01-13 05:27] LABS: BASOPHILS 0.1 % (0-2); EOSINOPHILS 2.4 % (0-7); HEMATOCRIT 37.1 % (42.0-54.0); HEMOGLOBIN 11.8 g/dL (13.5-17.5); IMMATURE GRANULOCYTES 0.2 % (0-5); LYMPHOCYTES 18.2 % (15-50); MCH 25.9 pg (26.0-34.0); MCHC 31.8 g/dL (31.0-37.0); MCV 81.4 fL (80.0-100.0); MEAN PLATELET VOLUME 10.6 fL (7.4-10.4); MONOCYTES 7.6 % (2-11); NEUTROPHILS 71.5 % (40-80); RBC 4.56 10x6/uL (4.20-6.10); RDW 15.5 % (11.5-14.5); WBC 8.7 10x3/uL (4.8-10.8)
[2018-01-13 05:35] LABS: PLATELET COUNT 203 10x3/uL (130-400)
[2018-01-13 05:49] LABS: ALBUMIN 3.2 g/dL (3.4-5.0); ANION GAP 12.1 mmol/L (8-16); BILIRUBIN - TOTAL 0.25 mg/dL (0.2-1.3); CALCIUM 8.5 mg/dL (8.5-10.1); CARBON DIOXIDE 25.3 mmol/L (21.0-32.0); POTASSIUM - SERUM 4.4 mmol/L (3.5-5.1); PROTEIN - SERUM 7.1 g/dL (6.4-8.2)
[2018-01-13 05:52] LABS: CREATININE - SERUM 1.1 mg/dL (0.6-1.3)
[2018-01-13 20:00] VITALS: BP 105/49
[2018-01-14 04:00] VITALS: BP 132/56
[2018-01-14 06:06] LABS: BASOPHILS 0.2 % (0-2); EOSINOPHILS 3.1 % (0-7); HEMOGLOBIN 10.1 g/dL (13.5-17.5); IMMATURE GRANULOCYTES 0.3 % (0-5); LYMPHOCYTES 26.1 % (15-50); MCH 26.2 pg (26.0-34.0); MCHC 31.6 g/dL (31.0-37.0); MCV 83.1 fL (80.0-100.0); MEAN PLATELET VOLUME 10.6 fL (7.4-10.4); MONOCYTES 9.8 % (2-11); NEUTROPHILS 60.5 % (40-80); PLATELET COUNT 171 10x3/uL (130-400); RBC 3.85 10x6/uL (4.20-6.10); RDW 15.8 % (11.5-14.5)
[2018-01-14 06:11] LABS: WBC 5.7 10x3/uL (4.8-10.8)
[2018-01-14 06:26] LABS: ALBUMIN 2.8 g/dL (3.4-5.0); ALKALINE PHOSPHATASE 119 U/L (46-116); ALT (SGPT) 70 U/L (10-68); CALC OSMOLALITY 280 mosm/kg (275-300); CALCIUM 8.3 mg/dL (8.5-10.1); CARBON DIOXIDE 27.6 mmol/L (21.0-32.0); CHLORIDE - SERUM 106 mmol/L (98-107); CREATININE - SERUM 0.8 mg/dL (0.6-1.3); GLUCOSE 122 mg/dL (74-106); POTASSIUM - SERUM 4.1 mmol/L (3.5-5.1); PROTEIN - SERUM 6.2 g/dL (6.4-8.2); SODIUM 138 mmol/L (136-145); UREA NITROGEN 23 mg/dL (7-18); eGFR NON AFRICAN AMERICAN > 90 mL/min (90-120)
[2018-01-14 08:48] VITALS: BP 113/64
[2018-01-14 20:00] VITALS: BP 113/66
[2018-01-15] VITALS: BP 93/50
[2018-01-15 04:00] VITALS: BP 135/82
[2018-01-15 06:25] LABS: ALBUMIN 2.8 g/dL (3.4-5.0); ALKALINE PHOSPHATASE 111 U/L (46-116); ALT (SGPT) 66 U/L (10-68); BILIRUBIN - TOTAL 0.35 mg/dL (0.2-1.3); CALC OSMOLALITY 270 mosm/kg (275-300); CALCIUM 8.5 mg/dL (8.5-10.1); CARBON DIOXIDE 29.6 mmol/L (21.0-32.0); CHLORIDE - SERUM 102 mmol/L (98-107); CREATININE - SERUM 0.7 mg/dL (0.6-1.3); GLUCOSE 87 mg/dL (74-106); POTASSIUM - SERUM 4.1 mmol/L (3.5-5.1); PROTEIN - SERUM 6.6 g/dL (6.4-8.2); SODIUM 136 mmol/L (136-145); eGFR NON AFRICAN AMERICAN > 90 mL/min (90-120)
[2018-01-15 06:26] LABS: UREA NITROGEN 12 mg/dL (7-18)
[2018-01-15 06:46] LABS: BASOPHILS 0.2 % (0-2); EOSINOPHILS 3.4 % (0-7); HEMATOCRIT 33.6 % (42.0-54.0); HEMOGLOBIN 10.5 g/dL (13.5-17.5); IMMATURE GRANULOCYTES 0.6 % (0-5); MCH 25.8 pg (26.0-34.0); MCHC 31.3 g/dL (31.0-37.0); MCV 82.6 fL (80.0-100.0); MEAN PLATELET VOLUME 11.6 fL (7.4-10.4); NEUTROPHILS 53.8 % (40-80); PLATELET COUNT 154 10x3/uL (130-400); RBC 4.07 10x6/uL (4.20-6.10); RDW 15.9 % (11.5-14.5); WBC 4.9 10x3/uL (4.8-10.8)
[2018-01-15 08:37] VITALS: BP 109/76
[2018-01-15 13:03] VITALS: BP 120/77
[2018-01-15] MEDS ORDERED: ULTRAM50 MG PO (15:08)
[2018-01-17 17:07] LABS: AEROBE ID Final report (())
[2018-01-18 16:07] LABS: AEROBE ID Final report (())
== END 2018-01-15 16:45 | disposition home health service (06) | DRG 184 ==
LOC: D.ER 18:54 → D.MS 01-12 00:22 → D.EDHOLD 01-12 00:22 → D.MS 01-12 01:16
PROVIDERS: Emergency Medicine; Family Medicine; Internal Medicine Nephrology
PROC: 05HC33Z Insertion of Infusion Device into Left Basilic Vein, Percutaneous Approach (ICD-10-PCS; principal; 2018-01-14)
PROC: B54NZZA Ultrasonography of Left Upper Extremity Veins, Guidance (ICD-10-PCS; 2018-01-14)
DX: S22.41XA Multiple fractures of ribs, right side, initial encounter for closed fracture (principal); N17.9 Acute kidney failure, unspecified; W19.XXXA Unspecified fall, initial encounter; R53.1 Weakness; R26.89 Other abnormalities of gait and mobility; B19.20 Unspecified viral hepatitis C without hepatic coma; R74.0 Nonspecific elevation of levels of transaminase and lactic acid dehydrogenase [LDH]; E86.0 Dehydration; K59.00 Constipation, unspecified; M51.36 Other intervertebral disc degeneration, lumbar region

== ENCOUNTER 2018-02-08 13:24 | Emergency (ER) | payer MEDICARE, MEDICAID ==
[~2018-02-08] VITALS: Ht 172.7 cm; Wt 77.3 kg
[~2018-02-08 13:24] MED LIST changes: +ULTRAM50 MG PO
[2018-02-08 13:27] VITALS: Ht 172.7 cm; Wt 77.3 kg
[2018-02-08 14:07] LABS: BASOPHILS 0.2 % (0-2); EOSINOPHILS 3.4 % (0-7); HEMATOCRIT 34.4 % (42.0-54.0); HEMOGLOBIN 11.2 g/dL (13.5-17.5); IMMATURE GRANULOCYTES 0.4 % (0-5); LYMPHOCYTES 26.2 % (15-50); MCH 26.6 pg (26.0-34.0); MCHC 32.6 g/dL (31.0-37.0); MCV 81.7 fL (80.0-100.0); MEAN PLATELET VOLUME 9.6 fL (7.4-10.4); MONOCYTES 7.9 % (2-11); NEUTROPHILS 61.9 % (40-80); PLATELET COUNT 181 10x3/uL (130-400); RBC 4.21 10x6/uL (4.20-6.10); RDW 15.2 % (11.5-14.5); WBC 5.3 10x3/uL (4.8-10.8)
[2018-02-08 14:25] LABS: ALBUMIN 3.1 g/dL (3.4-5.0); ALKALINE PHOSPHATASE 102 U/L (46-116); ALT (SGPT) 112 U/L (10-68); CALC OSMOLALITY 273 mosm/kg (275-300); CALCIUM 8.7 mg/dL (8.5-10.1); CARBON DIOXIDE 26.5 mmol/L (21.0-32.0); CHLORIDE - SERUM 104 mmol/L (98-107); CREATININE - SERUM 0.9 mg/dL (0.6-1.3); GLUCOSE 91 mg/dL (74-106); POTASSIUM - SERUM 4.2 mmol/L (3.5-5.1); SODIUM 135 mmol/L (136-145); UREA NITROGEN 24 mg/dL (7-18); eGFR NON AFRICAN AMERICAN > 90 mL/min (90-120)
[2018-02-08 14:36] LABS: APTT 28.8 SECONDS (22.8-39.4); PROTIME 12.8 SECONDS (11.6-15.0)
[2018-02-08] MEDS ORDERED: KEFLEX500 MG PO (17:51)
[2018-02-08] MEDS ORDERED: NORCO 7.5/325 T1 TA1 PO (17:55)
[2018-02-08 18:24] VITALS: BP 94/74
== END 2018-02-08 18:25 | disposition home or self-care (01) ==
LOC: D.ER 13:24
PROVIDERS: Emergency Medicine
DX: M54.2 Cervicalgia (principal); R51 Headache; S01.01XA Laceration without foreign body of scalp, initial encounter; W18.30XA Fall on same level, unspecified, initial encounter; Y93.89 Activity, other specified; Y92.017 Garden or yard in single-family (private) house as the place of occurrence of the external cause

== ENCOUNTER → 2018-04-15 13:01 | Outpatient (CLI) | payer MEDICARE, MEDICAID ==
[2018-02-08 13:27] VITALS: BMI 25.9
[~2018-04-15 13:01] MED LIST changes: +NORCO 7.5/325 T1 TA1 PO
== END | disposition home or self-care (01) ==
LOC: D.MRI 13:00
DX: G95.9 Disease of spinal cord, unspecified (principal)

== ENCOUNTER 2018-05-02 12:14 | Emergency (ER) | payer MEDICARE, MEDICAID ==
[2018-05-02 12:19] VITALS: Ht 172.7 cm
[2018-05-02 12:39] LABS: BASOPHILS 0.5 % (0-2); EOSINOPHILS 2.4 % (0-7); HEMATOCRIT 38.3 % (42.0-54.0); HEMOGLOBIN 12.5 g/dL (13.5-17.5); IMMATURE GRANULOCYTES 0.5 % (0-5); LYMPHOCYTES 26.8 % (15-50); MCH 27.6 pg (26.0-34.0); MCHC 32.6 g/dL (31.0-37.0); MCV 84.5 fL (80.0-100.0); MEAN PLATELET VOLUME 11.2 fL (7.4-10.4); MONOCYTES 9.8 % (2-11); RBC 4.53 10x6/uL (4.20-6.10); RDW 14.5 % (11.5-14.5); WBC 8.1 10x3/uL (4.8-10.8)
[2018-05-02 12:42] LABS: PLATELET COUNT 313 10x3/uL (130-400)
[2018-05-02 12:49] LABS: APPEARANCE CLEAR (CLEAR); COLOR YELLOW (YELLOW); SPECIFIC GRAVITY 1.025 (1.005-1.020)
[2018-05-02 12:50] LABS: BILIRUBIN NEGATIVE (NEGATIVE); GLUCOSE NEGATIVE (NEGATIVE); KETONE NEGATIVE (NEGATIVE); NITRITE NEGATIVE (NEGATIVE); PROTEIN NEGATIVE (NEGATIVE); UROBILINOGEN NORMAL (NORMAL)
[2018-05-02 12:57] LABS: ALBUMIN 3.2 g/dL (3.4-5.0); ALKALINE PHOSPHATASE 83 U/L (46-116); ALT (SGPT) 86 U/L (10-68); BILIRUBIN - TOTAL 0.17 mg/dL (0.2-1.3); CALC OSMOLALITY 275 mosm/kg (275-300); CALCIUM 9.1 mg/dL (8.5-10.1); CARBON DIOXIDE 24.1 mmol/L (21.0-32.0); CHLORIDE - SERUM 103 mmol/L (98-107); CREATININE - SERUM 0.7 mg/dL (0.6-1.3); GLUCOSE 96 mg/dL (74-106); POTASSIUM - SERUM 3.9 mmol/L (3.5-5.1); PROTEIN - SERUM 7.7 g/dL (6.4-8.2); SODIUM 137 mmol/L (136-145); UREA NITROGEN 19 mg/dL (7-18); eGFR NON AFRICAN AMERICAN > 90 mL/min (90-120)
[2018-05-02 13:54] LABS: AMYLASE - SERUM 55 U/L (25-115); LIPASE 157 U/L (73-393)
[2018-05-02] MEDS ORDERED: MIRALAX17 GM PO (15:17)
[2018-05-02 16:41] VITALS: BP 149/85
== END 2018-05-02 16:45 | disposition home or self-care (01) ==
LOC: D.ER 12:14
PROVIDERS: Emergency Medicine
DX: R10.31 Right lower quadrant pain (principal); K59.00 Constipation, unspecified

== ENCOUNTER 2018-06-10 05:08 | Day surgery (SDC) | payer MEDICARE, MEDICAID ==
[2018-06-10] VITALS (18 sets, daily range): BP systolic 116–151; BP diastolic 71–93; Ht 172.7 cm; Wt 79.5 kg
[~2018-06-10] VITALS: Ht 172.7 cm; Wt 79.5 kg
[~2018-06-10 05:08] MED LIST changes: +MIRALAX17 GM PO
[2018-06-10 05:37] LABS: HEMATOCRIT 37.6 % (42.0-54.0); HEMOGLOBIN 12.4 g/dL (13.5-17.5); MCH 26.3 pg (26.0-34.0); MCV 79.7 fL (80.0-100.0); MEAN PLATELET VOLUME 9.1 fL (7.4-10.4); RBC 4.72 10x6/uL (4.20-6.10); RDW 13.6 % (11.5-14.5); WBC 8.4 10x3/uL (4.8-10.8)
[2018-06-10 05:49] LABS: INR 1.05 (0.85-1.17); PROTIME 13.2 SECONDS (11.6-15.0)
[2018-06-10 06:04] LABS: ALBUMIN 3.4 g/dL (3.4-5.0); ALKALINE PHOSPHATASE 99 U/L (46-116); ALT (SGPT) 125 U/L (10-68); BILIRUBIN - TOTAL 0.18 mg/dL (0.2-1.3); CALC OSMOLALITY 276 mosm/kg (275-300); CALCIUM 8.8 mg/dL (8.5-10.1); CARBON DIOXIDE 20.2 mmol/L (21.0-32.0); CHLORIDE - SERUM 102 mmol/L (98-107); CREATININE - SERUM 0.9 mg/dL (0.6-1.3); GLUCOSE 119 mg/dL (74-106); POTASSIUM - SERUM 4.1 mmol/L (3.5-5.1); SODIUM 136 mmol/L (136-145); UREA NITROGEN 24 mg/dL (7-18); eGFR NON AFRICAN AMERICAN > 90 mL/min (90-120)
[2018-06-10 21:55] LABS: BASOPHILS 0.1 % (0-2); EOSINOPHILS 0 % (0-7); HEMATOCRIT 34.8 % (42.0-54.0); HEMOGLOBIN 11.4 g/dL (13.5-17.5); IMMATURE GRANULOCYTES 0.7 % (0-5); MCH 26.3 pg (26.0-34.0); MCHC 32.8 g/dL (31.0-37.0); MCV 80.2 fL (80.0-100.0); MEAN PLATELET VOLUME 9.4 fL (7.4-10.4); MONOCYTES 0.9 % (2-11); NEUTROPHILS 89.3 % (40-80); PLATELET COUNT 289 10x3/uL (130-400); RBC 4.34 10x6/uL (4.20-6.10); RDW 13.8 % (11.5-14.5)
[2018-06-10 22:00] LABS: WBC 11.7 10x3/uL (4.8-10.8)
[2018-06-11] VITALS (10 sets, daily range): BP systolic 116–164; BP diastolic 67–98
[2018-06-12] VITALS: BP 120/58
[2018-06-12 03:00] VITALS: BP 118/51
[2018-06-12 05:09] LABS: CALC OSMOLALITY 284 mosm/kg (275-300); CALCIUM 8.6 mg/dL (8.5-10.1); CHLORIDE - SERUM 104 mmol/L (98-107); CREATININE - SERUM 0.8 mg/dL (0.6-1.3); GLUCOSE 137 mg/dL (74-106); MAGNESIUM - SERUM 2.1 mg/dL (1.8-2.4); SODIUM 139 mmol/L (136-145); UREA NITROGEN 26 mg/dL (7-18); eGFR NON AFRICAN AMERICAN > 90 mL/min (90-120)
[2018-06-12 05:10] LABS: CARBON DIOXIDE 25.3 mmol/L (21.0-32.0)
[2018-06-12 06:24] LABS: BASOPHILS 0 % (0-2); EOSINOPHILS 0 % (0-7); HEMATOCRIT 31.1 % (42.0-54.0); HEMOGLOBIN 9.9 g/dL (13.5-17.5); IMMATURE GRANULOCYTES 0.2 % (0-5); LYMPHOCYTES 5.1 % (15-50); MCH 26.1 pg (26.0-34.0); MCHC 31.8 g/dL (31.0-37.0); MCV 81.8 fL (80.0-100.0); MEAN PLATELET VOLUME 9.7 fL (7.4-10.4); MONOCYTES 2.1 % (2-11); NEUTROPHILS 92.6 % (40-80); PLATELET COUNT 315 10x3/uL (130-400); RDW 14.1 % (11.5-14.5)
[2018-06-12 06:34] LABS: WBC 16.6 10x3/uL (4.8-10.8)
[2018-06-12 08:00] VITALS: BP 140/81
[2018-06-12] MEDS ORDERED: NORCO 10-325 TA1 TAB PO (13:03)
--- NOTE | 2018-06-29 10:06 | OP ---
PATIENT NAME: JAYNA JI MEDICAL RECORD: [id number] :55 LOCATION:[facility] ADMISSION DATE: SURGEON: ROBB DEL ANGEL MD DATE OF OPERATION: 06/10/2018 PREOPERATIVE DIAGNOSIS: Right C4, C5, and C6 radiculopathy secondary to foraminal stenosis at C3-C4, C4-C5, and C5-C6. PROCEDURE: Right posterior cervical foraminotomy at C3-4, C4-5, and C5-6. SURGEON: Robb Del Angel MD PRIMARY CARE PHYSICIAN: Rambo Russell MD OPERATIVE FINDINGS AND TECHNIQUE: After induction of general endotracheal anesthesia, the patient was rolled prone with some chest and hip rolls. Prior to this, he was placed in Guevara head pins. The posterior neck was prepped and draped in usual sterile fashion. Fluoroscopic x-ray and spinal needle localized at the C3-C4 interspace with a spinal needle and fluoroscopic x-ray. A skin incision was carried out from the spinous process of C3-C5. Then, using Bovie cautery, the spinous processes and lamina of C3, C4, C5 and C6 were exposed in a subperiosteal manner. The Midas-Juan drill was used to perform a laminotomy, medial facetectomy, and a foraminotomy at C3-C4, C4-C5, and C5-C6. Hypertrophied ligamentum flavum was removed at each level. This relieved nerve root compression at each level. Following this, all 3 nerve roots were decompressed well. Meticulous hemostasis was maintained throughout the wound. The wound was irrigated with copious amounts of Ancef irrigant solution. The fascia was closed with 2-0 Vicryl suture, the subdermal layer was closed with 3-0 Vicryl suture. The skin was closed with sully. A sterile dressing was applied to the wound. The patient was awakened in good condition and taken to recovery. All counts were reported as correct. Estimated blood loss was minimal. TRANSINT:[id number] Voice Confirmation ID: [id number] DOCUMENT ID: [id number] ROBB DEL ANGEL MD at 1006 CC: [id number] DICTATION DATE: 06/23/18 1451 CITY SECRETARY: 06/23/18 194 [facility] 06/12/18 [facility] [address] [place] [address]
== END 2018-06-12 13:18 | disposition home or self-care (01) ==
LOC: OBSVTIME → D.SDCHOLD 05:08 → D.OPS 05:08 → D.CVICU 05:08 → D.SDCHOLD 05:08 → D.CVICU 05:08 → D.SDCHOLD 07:30 → EDSTATUS 09:15 → D.SDCHOLD 09:15 → D.CVICU 11:24 → D.SDCHOLD 11:24 → D.CVICU 12:03 → OBSVTIME 12:03 → D.CVICU 06-11 01:37 → D.MS 06-11 10:01 → D.OPS 06-12 13:18 → D.MS 06-12 13:18
PROVIDERS: Anesthesiology; Family Medicine; Neurological Surgery
DX: M51.16 Intervertebral disc disorders with radiculopathy, lumbar region (principal)

== ENCOUNTER 2018-06-29 13:47 | Emergency (ER) | payer MEDICARE, MEDICAID ==
[~2018-06-29] VITALS: Ht 172.7 cm; Wt 81.8 kg
[~2018-06-29 13:47] MED LIST changes: +NORCO 10-325 TA1 TAB PO
[2018-06-29 14:05] VITALS: Ht 172.7 cm; Wt 81.8 kg
[2018-06-29 15:41] VITALS: BP 136/89
== END 2018-06-29 15:42 | disposition home or self-care (01) ==
LOC: D.ER 13:47
DX: S20.211A Contusion of right front wall of thorax, initial encounter (principal); W06.XXXA Fall from bed, initial encounter; Y93.89 Activity, other specified; Y92.013 Bedroom of single-family (private) house as the place of occurrence of the external cause; I10 Essential (primary) hypertension; F17.200 Nicotine dependence, unspecified, uncomplicated

== ENCOUNTER 2018-09-04 17:28 | Emergency (ER) | payer MEDICARE, MEDICAID ==
[~2018-09-04] VITALS: Ht 172.7 cm; Wt 68.2 kg
[2018-09-04 17:35] VITALS: Ht 172.7 cm; Wt 68.2 kg
[2018-09-04 17:59] LABS: BASOPHILS 0.4 % (0-2); EOSINOPHILS 1.3 % (0-7); HEMATOCRIT 32.9 % (42.0-54.0); HEMOGLOBIN 10.4 g/dL (13.5-17.5); IMMATURE GRANULOCYTES 0.4 % (0-5); LYMPHOCYTES 31.9 % (15-50); MCH 24.5 pg (26.0-34.0); MCHC 31.6 g/dL (31.0-37.0); MCV 77.6 fL (80.0-100.0); MEAN PLATELET VOLUME 9.2 fL (7.4-10.4); MONOCYTES 8.3 % (2-11); NEUTROPHILS 57.7 % (40-80); PLATELET COUNT 224 10x3/uL (130-400); RBC 4.24 10x6/uL (4.20-6.10); WBC 5.3 10x3/uL (4.8-10.8)
[2018-09-04 18:11] LABS: ANION GAP 14.3 mmol/L (8-16); BILIRUBIN - TOTAL 0.2 mg/dL (0.2-1.3); CALCIUM 7.8 mg/dL (8.5-10.1); CARBON DIOXIDE 21.2 mmol/L (21.0-32.0); CREATININE - SERUM 1.1 mg/dL (0.6-1.3); MAGNESIUM - SERUM 1.9 mg/dL (1.8-2.4); PHOSPHOROUS 3.1 mg/dL (2.5-4.9); POTASSIUM - SERUM 3.5 mmol/L (3.5-5.1); PROTEIN - SERUM 6.4 g/dL (6.4-8.2)
[2018-09-04 18:20] LABS: APPEARANCE CLEAR (CLEAR); BILIRUBIN 2+ (NEGATIVE); COLOR YELLOW (YELLOW); GLUCOSE NEGATIVE (NEGATIVE); KETONE NEGATIVE (NEGATIVE); NITRITE NEGATIVE (NEGATIVE); PROTEIN 1+ mg/dL (NEGATIVE); UROBILINOGEN NORMAL (NORMAL)
[2018-09-04 18:22] LABS: BACTERIA FEW /hpf (NONE SEEN); EPITHELIAL CELLS 0-5 /hpf (0-5); RED CELLS - URINE OCC /hpf (0-5); WHITE CELLS - URINE 0-5 /hpf (0-5)
[2018-09-04 18:39] LABS: UDS - AMPHET NEGATIVE QUAL (NEGATIVE); UDS - BARB NEGATIVE QUAL (NEGATIVE); UDS - BENZO NEGATIVE QUAL (NEGATIVE); UDS - COCAINE NEGATIVE QUAL (NEGATIVE); UDS - OPIATE POSITIVE QUAL (NEGATIVE); UDS - PCP NEGATIVE QUAL (NEGATIVE); UDS - THC NEGATIVE QUAL (NEGATIVE)
[2018-09-04 20:37] VITALS: BP 104/89
== END 2018-09-04 20:38 | disposition home or self-care (01) ==
LOC: D.ER 17:28
PROVIDERS: Family Medicine
DX: T50.991A Poisoning by other drugs, medicaments and biological substances, accidental (unintentional), initial encounter (principal)

== ENCOUNTER 2019-05-30 16:02 | Emergency (ER) | payer MEDICARE, MEDICAID ==
[~2019-05-30] VITALS: Ht 172.7 cm; Wt 86.4 kg
[2019-05-30 16:10] VITALS: Ht 172.7 cm; Wt 86.4 kg
[2019-05-30] MEDS ORDERED: CYCLOBENZAPRINE10 MG PO (16:11)
[2019-05-30] MEDS ORDERED: ULTRAM50 MG PO (16:12)
[2019-05-30 16:35] LABS: BASOPHILS 0.5 % (0-2); EOSINOPHILS 1.3 % (0-7); HEMATOCRIT 38.1 % (42.0-54.0); HEMOGLOBIN 11.9 g/dL (13.5-17.5); IMMATURE GRANULOCYTES 0.2 % (0-5); LYMPHOCYTES 23.4 % (15-50); MCH 24.4 pg (26.0-34.0); MCHC 31.2 g/dL (31.0-37.0); MCV 78.1 fL (80.0-100.0); MEAN PLATELET VOLUME 8.8 fL (7.4-10.4); MONOCYTES 7.5 % (2-11); NEUTROPHILS 67.1 % (40-80); RBC 4.88 10x6/uL (4.20-6.10); RDW 14.4 % (11.5-14.5); WBC 8.4 10x3/uL (4.8-10.8)
[2019-05-30 16:44] LABS: ANION GAP 14.2 mmol/L (8-16); CALCIUM 8.3 mg/dL (8.5-10.1); CARBON DIOXIDE 22.3 mmol/L (21.0-32.0); CREATININE - SERUM 1.1 mg/dL (0.6-1.3); POTASSIUM - SERUM 4.5 mmol/L (3.5-5.1)
[2019-05-30 16:50] LABS: ALBUMIN 3.9 g/dL (3.4-5.0); BILIRUBIN - TOTAL 0.26 mg/dL (0.2-1.3); PROTEIN - SERUM 7.5 g/dL (6.4-8.2)
[2019-05-30 16:52] LABS: PLATELET COUNT 305 10x3/uL (130-400)
[2019-05-30] MEDS ORDERED: FLOMAX0.4 MG PO (18:42)
[2019-05-30] MEDS ORDERED: DULCOLAX STOOL100 MG PO (18:43)
[2019-05-30 19:29] LABS: APPEARANCE CLEAR (CLEAR); COLOR YELLOW (YELLOW)
[2019-05-30 19:30] LABS: BILIRUBIN NEGATIVE (NEGATIVE); GLUCOSE NEGATIVE (NEGATIVE); KETONE NEGATIVE (NEGATIVE); NITRITE NEGATIVE (NEGATIVE); PROTEIN NEGATIVE (NEGATIVE); UROBILINOGEN NORMAL (NORMAL)
[2019-05-30 21:05] VITALS: BP 142/91
== END 2019-05-30 21:05 | disposition home or self-care (01) ==
LOC: D.ER 16:02
PROVIDERS: Family Medicine
DX: R33.9 Retention of urine, unspecified (principal); D64.9 Anemia, unspecified; K59.00 Constipation, unspecified; E87.1 Hypo-osmolality and hyponatremia; M54.9 Dorsalgia, unspecified

== ENCOUNTER 2019-07-08 16:34 | Emergency (ER) | payer MEDICARE, MEDICAID ==
[~2019-07-08] VITALS: Ht 172.7 cm; Wt 86.4 kg
[~2019-07-08 16:34] MED LIST changes: +DULCOLAX STOOL100 MG PO; +FLOMAX0.4 MG PO
[2019-07-08 16:51] VITALS: Ht 172.7 cm; Wt 86.4 kg
[2019-07-08] MEDS ORDERED: CYCLOBENZAPRINE10 MG PO (19:49)
[2019-07-08] MEDS ORDERED: TYLENOL ARTHRI650 MG PO (19:49)
[2019-07-08] MEDS ORDERED: KEFLEX500 MG PO (19:49)
[2019-07-08 21:54] VITALS: BP 128/82
== END 2019-07-08 21:12 | disposition home or self-care (01) ==
LOC: D.ER 16:34
DX: S60.222A Contusion of left hand, initial encounter (principal); S60.221A Contusion of right hand, initial encounter; W10.2XXA Fall (on)(from) incline, initial encounter; S16.1XXA Strain of muscle, fascia and tendon at neck level, initial encounter; S61.412A Laceration without foreign body of left hand, initial encounter; S51.812A Laceration without foreign body of left forearm, initial encounter; M54.9 Dorsalgia, unspecified

== ENCOUNTER 2020-01-26 13:02 | Emergency (ER) | payer MEDICARE, MEDICAID ==
[~2020-01-26] VITALS: Ht 172.7 cm; Wt 92.7 kg
[~2020-01-26 13:02] MED LIST changes: +TYLENOL ARTHRI650 MG PO
[2020-01-26 13:31] VITALS: Ht 172.7 cm; Wt 92.7 kg
[2020-01-26 14:32] LABS: BASOPHILS 0.4 % (0-2); EOSINOPHILS 3.2 % (0-7); HEMATOCRIT 35.3 % (42.0-54.0); HEMOGLOBIN 10.8 g/dL (13.5-17.5); IMMATURE GRANULOCYTES 0.2 % (0-5); LYMPHOCYTES 31.7 % (15-50); MCH 24.7 pg (26.0-34.0); MCHC 30.6 g/dL (31.0-37.0); MCV 80.6 fL (80.0-100.0); MEAN PLATELET VOLUME 9.2 fL (7.4-10.4); MONOCYTES 7.5 % (2-11); RBC 4.38 10x6/uL (4.20-6.10); WBC 5.7 10x3/uL (4.8-10.8)
[2020-01-26 14:35] LABS: PLATELET COUNT 241 10x3/uL (130-400)
[2020-01-26 14:40] LABS: APTT 31.8 SECONDS (22.8-39.4); INR 0.98 (0.85-1.17)
[2020-01-26 14:43] LABS: CALC OSMOLALITY 280 mosm/kg (275-300); CALCIUM 9.3 mg/dL (8.5-10.1); CARBON DIOXIDE 27.5 mmol/L (21.0-32.0); CHLORIDE - SERUM 103 mmol/L (98-107); CREATININE - SERUM 1.3 mg/dL (0.6-1.3); GLUCOSE 119 mg/dL (74-106); POTASSIUM - SERUM 4.7 mmol/L (3.5-5.1); SODIUM 138 mmol/L (136-145); UREA NITROGEN 25 mg/dL (7-18); eGFR NON AFRICAN AMERICAN 59 mL/min (90-120)
[2020-01-26 15:00] LABS: ALBUMIN 3.8 g/dL (3.4-5.0); ALKALINE PHOSPHATASE 94 U/L (30-120); ALT (SGPT) 21 U/L (10-68); BILIRUBIN - TOTAL 0.26 mg/dL (0.2-1.3); CKMB 3.8 U/L (0.0-3.6); CREATINE KINASE 114 UL (21-232); PRO BNP 77 pg/mL (0-125); PROTEIN - SERUM 6.9 g/dL (6.4-8.2); TROPONIN-I < 0.017 ng/mL (0.000-0.060)
[2020-01-26] MEDS ORDERED: PREDNISONE20 MG PO (18:45)
[2020-01-26] MEDS ORDERED: VENTOLIN HFA [SP8 GM INH (18:45)
[2020-01-26 19:12] VITALS: BP 128/95
== END 2020-01-26 19:12 | disposition home or self-care (01) ==
LOC: D.ER 13:02
PROVIDERS: Family Medicine
DX: J44.1 Chronic obstructive pulmonary disease with (acute) exacerbation (principal)

== ENCOUNTER 2020-07-19 06:10 | Day surgery (SDC) | payer MEDICARE, MEDICAID ==
[2020-07-16 16:58] LABS: BASOPHILS 0.1 % (0-2); EOSINOPHILS 1.1 % (0-7); HEMATOCRIT 41.4 % (42.0-54.0); HEMOGLOBIN 12.9 g/dL (13.5-17.5); IMMATURE GRANULOCYTES 0.4 % (0-5); LYMPHOCYTE ABS# 1.04 10x3/uL (1.32-3.57); LYMPHOCYTES 14.9 % (15-50); MCH 25.3 pg (26.0-34.0); MCHC 31.2 g/dL (31.0-37.0); MCV 81.2 fL (80.0-100.0); MEAN PLATELET VOLUME 8.9 fL (7.4-10.4); NEUTROPHIL ABS# 5.35 10x3/uL (1.78-5.38); NEUTROPHILS 76.5 % (40-80); PLATELET COUNT 195 10x3/uL (130-400); RDW 16.2 % (11.5-14.5)
[2020-07-16 17:07] LABS: CALC OSMOLALITY 273 mosm/kg (275-300); CARBON DIOXIDE 26.7 mmol/L (21.0-32.0); CHLORIDE - SERUM 102 mmol/L (98-107); CREATININE - SERUM 0.8 mg/dL (0.6-1.3); GLUCOSE 105 mg/dL (74-106); POTASSIUM - SERUM 4.2 mmol/L (3.5-5.1); SODIUM 137 mmol/L (136-145); UREA NITROGEN 12 mg/dL (7-18); eGFR NON AFRICAN AMERICAN > 90 mL/min (90-120)
[~2020-07-19] VITALS: Ht 172.7 cm; Wt 88.9 kg
[~2020-07-19 06:10] MED LIST changes: +AZITHROMYCIN500 MG PO; +CELEXA40 MG PO; +HYDROCODON-ACE1 EA10; +PREDNISONE10 MG PO; +PREDNISONE20 MG PO; +SYMBICORT 16010.2 GM INH; +VENTOLIN HFA [SP8 GM INH
[2020-07-19 07:16] VITALS: BP 140/93; Ht 172.7 cm; Wt 88.9 kg
[2020-07-19] MEDS ORDERED: HYDROCODON-ACE1 EA10 PO (08:51)
--- NOTE | 2020-07-19 11:06 | NUR ---
1105 IV REMOVED AND PT EATING ICE CREAM AND COFFEE
--- NOTE | 2020-07-19 11:37 | NUR ---
1115 DR DEL ANGEL CALLED INTO OR ABOUT WHEN TO REMOVE DRESSING. ORDERS GIVEN
--- NOTE | 2020-07-26 08:56 | OP ---
PATIENT NAME: JAYNA JI MEDICAL RECORD: [id number] :55 LOCATION:[facility] ADMISSION DATE: SURGEON: ROBB DEL ANGEL MD DATE OF OPERATION: 07/19/2020 PREOPERATIVE DIAGNOSIS: Right carpal tunnel syndrome and right ulnar neuropathy. POSTOPERATIVE DIAGNOSIS: Right carpal tunnel syndrome and right ulnar neuropathy. PROCEDURES: 1. Right carpal tunnel release. 2. Right ulnar nerve decompression at the cubital tunnel. DESCRIPTION OF TECHNIQUE: After induction of general endotracheal anesthesia, the patient was positioned supine on the operating table. The right upper extremity was prepped and draped in the usual sterile fashion. The right upper extremity was exsanguinated with an Joseph wrap and then tourniquet was inflated to 250 mmHg. Just medial to the palmar crease, incision was created to the wrist crease, and then progressive dissection through the layers to the deep palmar fascia through the palmaris longus and then finally to the transverse carpal ligament was undertaken under loupe magnification. Median nerve was identified distally and then followed proximally into the carpal tunnel. The transverse carpal ligament was dissected completely to its most proximal extent just proximal to the wrist crease. Next, attention was turned to the right cubital tunnel. A curvilinear incision was carried out from just medial to the epicondyle. The ulnar nerve was identified proximally and then followed through its course through the cubital tunnel. Nerve was obviously compressed by scar tissue. This was released with sharp dissection with a #15 blade. Following this, the ulnar nerve was completely decompressed. There was no need for transposition. Next, the tourniquet was deflated. Meticulous hemostasis was maintained throughout both wounds. At the cubital tunnel, the subdermal layer was reapproximated with interrupted 4-0 Vicryl suture. The skin was reapproximated with small sully. At the palmar incision, the skin was reapproximated with a vertical mattress style suture with #3-0 nylon suture. Sterile dressing was applied to both wounds. The patient was awakened in good condition and taken to recovery. All counts were reported as correct. Estimated blood loss was minimal. TRANSINT:[id number] Voice Confirmation ID: [id number] DOCUMENT ID: [id number] ROBB DEL ANGEL MD at 0856 CC: [id number] DICTATION DATE: 07/25/20 1634 SAMPLE MOUNTER: 07/25/20 2246 [facility] 07/19/20 [place] [id number] [place] [id number]
== END 2020-07-19 11:30 | disposition home or self-care (01) ==
LOC: D.OPS 06:10
PROVIDERS: Anesthesiology; ATTEND Neurological Surgery
DX: G56.01 Carpal tunnel syndrome, right upper limb (principal); G56.23 Lesion of ulnar nerve, bilateral upper limbs; G56.13 Other lesions of median nerve, bilateral upper limbs; I10 Essential (primary) hypertension

== ENCOUNTER → 2020-09-14 13:04 | Outpatient (CLI) | payer MEDICARE, MEDICAID ==
[2020-07-19 07:16] VITALS: BMI 29.8
[~2020-09-14 13:04] MED LIST changes: +HYDROCODON-ACE1 EA10 PO
== END | disposition home or self-care (01) ==
LOC: D.LAB 13:04
PROVIDERS: ATTEND Internal Medicine Pulmonary Disease
DX: Z11.52 Encounter for screening for COVID-19 (principal)

== ENCOUNTER 2020-11-05 05:40 | Day surgery (SDC) | payer MEDICARE, MEDICAID ==
[2020-11-02 12:14] LABS: HEMATOCRIT 40.1 % (42.0-54.0); HEMOGLOBIN 12.9 g/dL (13.5-17.5); MCHC 32.2 g/dL (31.0-37.0); WBC 9.9 10x3/uL (4.8-10.8)
[2020-11-02 12:16] LABS: BASOPHILS 0.6 % (0-2); EOSINOPHILS 1.7 % (0-7); LYMPHOCYTES 25.6 % (15-50); MCV 80.7 fL (80.0-100.0); MEAN PLATELET VOLUME 7.3 fL (7.4-10.4); MONOCYTES 4.3 % (2-11); NEUTROPHILS 67.8 % (40-80); PLATELET COUNT 213 10x3/uL (130-400); RBC 4.97 10x6/uL (4.20-6.10)
[2020-11-02 12:29] LABS: ANION GAP 9.7 mmol/L (8-16); CARBON DIOXIDE 28.3 mmol/L (21.0-32.0); CREATININE - SERUM 1.3 mg/dL (0.6-1.3)
[~2020-11-05] VITALS: Ht 172.7 cm; Wt 86.6 kg
--- NOTE | ~2020-11-05 | OP ---
PATIENT NAME: JAYNA JI MEDICAL RECORD: [id number] :55 LOCATION:[facility] ADMISSION DATE: SURGEON: ROBB DEL ANGEL MD DATE OF OPERATION: 11/05/2020 PREOPERATIVE DIAGNOSES: Left carpal tunnel syndrome, left ulnar neuropathy at cubital tunnel. DESCRIPTION OF PROCEDURE: After induction of general endotracheal anesthesia, the patient's left upper extremity was prepped and draped and exsanguinated. A tourniquet was inflated to 250 mmHg. A skin incision was carried out from the wrist crease to just with a level even with the web space of the thumb, lateral to the palmar crease. Progressive dissection took place in the layers through that and finally through the transverse carpal ligament. The ligament was divided proximal to the wrist crease under direct vision. The median nerve was completely decompressed. Next, attention was then turned to the left elbow. After infiltration of 1:100,000 epinephrine with 1% lidocaine, a curvilinear incision was carried out between the olecranon and the elbow. The ulnar nerve was identified proximal to the cubital tunnel and this was followed with sharp dissection through the scar tissue, through the cubital tunnel and distal to this. Nerve appeared to be free with flexion and extension of the elbow. Tourniquet was deflated. Hemostasis was maintained throughout both wounds with bipolar cautery. The subdermal layer was closed at the cubital tunnel with 4-0 Vicryl suture. The skin was closed with a vertical mattress style suture with 3-0 nylon. At the carpal tunnel incision, the skin edges were reapproximated with vertical mattress style suture using 3-0 nylon suture. Sterile dressing was applied to the wounds. The patient was awakened in good condition and taken to recovery. All counts were reported as correct. ESTIMATED BLOOD LOSS: Minimal. TRANSINT:[id number] Voice Confirmation ID: [id number] DOCUMENT ID: [id number] ROBB DEL ANGEL MD CC: [id number] DICTATION DATE: 11/07/20921 WIRE WEAVER: 11/07/20 1104 [facility] 11/05/20 [facility] [address] [place] [address]
[2020-11-05 06:10] VITALS: BP 150/84; Ht 172.7 cm; Wt 86.6 kg
[2020-11-05] MEDS ORDERED: HYDROCODON-ACE1 EA10 PO (09:07)
[2020-11-05] MEDS ORDERED: MEDROL DOSE PACK4 MG PO (09:08)
--- NOTE | 2020-11-05 10:41 | NUR ---
1015 - COMPLAINED OF PAIN AND REQUESTED PAIN PILL. HYDROCODONE 10/325 ONE GIVEN PO FOR A PAIN LEVEL OF 8
--- NOTE | 2020-11-05 10:48 | NUR ---
1040 - PATIENT REPORTS PAIN LEVEL IS DOWN TO ABOUT 4-5 NOW.
--- NOTE | 2020-11-05 10:51 | NUR ---
1045 - IV D/C'D WITH TIP INTACT. PATIENT UP TO DRESS FOR DISCHARGE. DISCHARGE INSTRUCTIONS GIVEN AND PATIENT HAS ICE PACK AND PRESCRIPTION.
--- NOTE | 2020-11-05 11:01 | NUR ---
1055 - DISCHARGED VIA WHEELCHAIR TO PRIVATE CAR.
== END 2020-11-05 10:55 | disposition home or self-care (01) ==
LOC: D.OPS 05:40
PROVIDERS: Anesthesiology; ATTEND Neurological Surgery
DX: G56.02 Carpal tunnel syndrome, left upper limb (principal); G56.22 Lesion of ulnar nerve, left upper limb